=== PATIENT | female | born 1950 | race Caucasian/White ===

== ENCOUNTER 2021-03-08 13:54 | Outpatient (CLI) | payer MEDICARE, OTHER, SELFPAY ==
--- NOTE | ~2021-03-08 | XR_ITS ---
XR hip RT min 2V 03/08/2021 14:51 Indication: Right hip pain Procedure: 3 views right hip Comparison: No prior studies for comparison. Findings: There is mild osteoarthritis of the right hip. No fracture, subluxation or dislocation. No foreign bodies. Surrounding osseous structures are unremarkable. Impression: 1: Mild osteoarthritis of the right hip. Reviewed, dictated and finalized at location A. Impression: 1: Mild osteoarthritis of the right hip.
== END 2021-03-08 13:55 | disposition home or self-care (01) ==
LOC: ANHIMG 14:00
DX: M17.11 Unilateral primary osteoarthritis, right knee (principal)
CPT/HCPCS: 73502

== ENCOUNTER 2021-08-14 16:30 | Observation (INO) | payer MEDICARE, OTHER, SELFPAY ==
[2021-08-14] VITALS (8 sets, daily range): BP systolic 127–165; BP diastolic 71–98; PULSE 66–87; RESP 14–20; TEMP 35.7–36.2; O2SAT 94–99; BMI 29.5
--- NOTE | ~2021-08-14 | NM_ITS ---
EXAMINATION: NM shilpa stress w perfusion DATE: 08/15/2021 12:34 INDICATION: Chest pain. TECHNIQUE: Rest images were obtained following intravenous administration of 10.9 mCi Tc99m tetrofosm in (Myoview). The patient was infused intravenously with Lexiscan (regadenoson). Then, 31.8 mCi Tc99m tetrofosmin (Myoview) was administered intravenously, and stress images were obtained. Data was karishma nstructed into short axis and horizontal and vertical long axis SPECT images. Gated SPECT images were also obtained. COMPARISON: None. FINDINGS: Increased activity below the diaphragm decreases sensitivity and specificity in the inferio r wall. There is a moderate-sized, mild, fixed perfusion defect involving mid to basal inferior and i nferolateral segments of left ventricle, consistent with infarct. No reversible component to suggest ischemia.. There is no segmental wall motion abnormality. Left ventricular ejection fraction measur es >70%. IMPRESSION: 1. Moderate-sized area of mild infarct involving mid to basal inferior and inferolateral segments of left ventricle. 2. Normal left ventricular ejection fraction measuring >70%. Reviewed, dictated and finalized at location B. OR CREDIT OFFICER IMPRESSION: 1. Moderate-sized area of mild infarct involving mid to basal inferior and infe rolateral segments of left ventricle. 2. Normal left ventricular ejection fraction measuring >70%.
--- NOTE | ~2021-08-14 | XR_ITS ---
EXAMINATION: XR chest 2V DATE: 08/14/2021 17:19 INDICATION: Sternal chest pain, nausea and fatigue. Hyperglycemia. TECHNIQUE: PA and lateral views of the chest were obtained. COMPARISON: None FINDINGS: The lungs are clear with no focal airspace opacities, pulmonary edema, pleural effusion or pneumothor ax. The cardiomediastinal silhouette is normal. Calcified right paratracheal lymph node consistent wi th old granulomatous disease. Cholecystectomy clips in right upper quadrant. IVC filter projecting al amilcar the right side of L1-L2. Bones are unremarkable. IMPRESSION: 1. No acute cardiopulmonary disease. Reviewed, dictated and finalized at location A. E AND WELD INSPECTOR
--- NOTE | 2021-08-14 16:52 | ECG_ITS ---
Measurements Intervals [place] Rate: 83 P: 28 NC: 149 QRS: 3 QRSD: 91 T: 86 QT: 333 QTc: 392 Interpretive Statements SINUS RHYTHM BORDERLINE R WAVE PROGRESSION, ANTERIOR LEADS BORDERLINE ST-T WAVE ABNORMALITY- HIGH LATERAL LEADS BASELINE ARTIFACT- I, II, III, AVR, AVL, AVF, V3 BORDERLINE ECG Electronically Signed On 08-14-2021 19:30:05 ELECTRICAL WORKER by Stefano Olson D.O.
[2021-08-14 17:08] LABS: Basophils Absolute Auto 0.1 K/mm3 (0.0-0.1); Basophils Percent Auto 0.8 % (0.2-1.2); Eosinophils Absolute Auto 0.1 K/mm3 (0-0.3); Eosinophils Percent Auto 1.9 % (0-4.4); Hemoglobin 14.8 g/dL (12.0-15.0); Immature Granulocyte Absolute 0.01 K/mm3 (0.00-0.031); Immature Granulocyte Percent A 0.2 % (0-0.5); Lymphocytes Absolute Auto 1.49 K/mm3 (0.9-3.2); Lymphocytes Percent Auto 23.2 % (18.3-44.2); Mean Corpuscular HGB Conc 34.4 g/dl (32-36); Mean Corpuscular Volume 90.1 fl (80-100); Mean Platelet Volume 10.5 fl (7.4-10.4); Monocytes Absolute Auto 0.5 K/mm3 (0.1-0.6); Monocytes Percent Auto 7.3 % (2.6-8.5); Neutrophils Absolute Auto 4.3 K/mm3 (1.3-6.7); Neutrophils Percent Auto 66.6 % (45.5-73.1); Platelet Count Result 302 k/mm3 (150-375); Red Blood Count 4.77 M/mm3 (4.2-5.4); White Blood Count 6.4 K/mm3 (4.5-10.0)
[2021-08-14 17:12] LABS: Add Urine Microscopic? YES; Appearance Urine Cloudy (Clear); Bacteria Urine Trace /hpf; Bilirubin Urine Negative (Negative); Blood Urine Negative (Negative); Color Urine Amber (Yellow); Glucose Urine UA Negative (Negative); Hyaline Casts Urine 20-29 /lpf; Ketones Urine Negative (Negative); Leukocyte Esterase Ur 1+ LEU/UL (Negative); Mucus Urine Few /lpf; Nitrate Urine Negative (Negative); Protein Urine 2+ mg/dL (Negative); Specific Grav Ur 1.019 (1.001-1.035); Squamous Epithelial Cell Urine Many /hpf (Few); Urobilinogen Urine Negative mg/dL (<2.0)
[2021-08-14 17:21] LABS: INR 0.9; Prothrombin Time 12.3 Seconds (11.1-14.7)
[2021-08-14 17:22] LABS: Partial Thromboplastin Time 33.2 SECONDS (22.3-36.8)
[2021-08-14 17:23] LABS: Alanine Aminotransferase 16 U/L (4-35); Albumin Level 4.9 g/dL (3.5-5.1); Alkaline Phosphatase 80 U/L (38-126); Anion Gap 9 mmol/L (8-16); Aspartate Amino Transferase 32 U/L (14-36); Bilirubin,Total 0.6 mg/dL (0.2-1.3); Blood Urea Nitrogen 13 mg/dL (7-17); Calcium 10.3 mg/dL (8.4-10.2); Carbon Dioxide 28 mmol/L (22-30); Chloride 95 mmol/L (98-107); Estimated CRCL calculation 63 ml/min; Estimated Glomerular Filt Rate > 60; Glucose 109 mg/dL (65-110); Lipase 32 U/L (23-300); Potassium 4.2 mmol/L (3.4-5.0); Sodium 132 mmol/L (137-145)
[2021-08-14 17:35] LABS: Troponin I < 0.012 ng/mL (0.000-0.034)
--- NOTE | 2021-08-14 20:06 | ED.GENADULT ---
HPI - General Adult General Chief complaint: Unspecified Stated complaint: Multiple Complaints Time Seen by Provider: 08/14/21 19:40 Source: patient and RN notes reviewed History of Present Illness HPI narrative: Patient is a 70 y/o female complaining of midsternal chest pain starting before noon today. She describes her pain as aching and rates it as 4/10. There is no pain radiation, no known alleviating or exacerbating factor. She also has been having some nausea for several days. She attributed this nausea to antibiotic she received recently from a dentist for dental infection. She states that she had [place] and stents in 2012. Related Data Home Medications Medication Instructions Recorded Confirmed Humalog Pen SUBCUT 08/14/21 Lantus Solostar U-100 Insulin SUBCUT 08/14/21 atorvastatin 40 mg PO HS 08/14/21 08/14/21 carvedilol 12.5 mg PO BID 08/14/21 08/14/21 escitalopram oxalate 20 mg PO DAILY 08/14/21 08/14/21 hydrocodone-acetaminophen 1 tablet PO TID PRN 08/14/21 08/14/21 levothyroxine [Synthroid] 150 mcg PO DAILY 08/14/21 08/14/21 morphine 15 mg PO BID 08/14/21 08/14/21 pregabalin 200 mg PO HS 08/14/21 08/14/21 rivaroxaban [Xarelto] 20 mg PO QPM 08/14/21 08/14/21 Allergies Allergy/AdvReac Type Severity Reaction Status Date / Time codeine Allergy Hallucinati Verified 08/14/21 18:48 ng Sulfa (Sulfonamide Allergy Unknown Verified 08/14/21 18:48 Antibiotics) Review of Systems Constitutional: Constitutional: Denies chills, Denies fever(s), Denies headache(s) and Denies weakness Eyes: Eyes: Denies blurry vision ENT: Denies headache(s) and Denies neck pain Cardiovascular: Cardiovascular: Reports chest pain and Denies dyspnea Respiratory: Respiratory: Denies cough and Denies dyspnea Gastrointestinal: Gastrointestinal: Denies abdominal pain, Denies diarrhea, Reports nausea and Denies vomiting Genitourinary: Genitourinary: Denies hematuria and Denies dysuria Musculoskeletal: Musculoskeletal: Denies back pain and Denies neck pain Neurologic: Denies headache(s) and Denies weakness Exam Const: General: no acute distress and well developed Orientation/consciousness: oriented to person, oriented to place, oriented to time and patient oriented x3 HENMT: Head: normocephalic Ears: external ears normal General nose exam: Normal external nose present Eyes: General: appearance normal, both eyes and all related structures Conjunctivae: conjunctivae normal Neck: Neck: normal visual inspection and full ROM Chest: Chest palpation & inspection: normal inspection of the chest and no tenderness Resp: Effort & Inspection: normal respiratory effort Auscultation: clear to auscultation bilaterally Cardio: Rate: regular rate Rhythm: regular rhythm GI: GI Palp: No abdominal tenderness and Yes Soft to palpation Skin: General skin exam: normal color and turgor normal Neuro: General: oriented to person, oriented to place, oriented to time and patient oriented x3 Cognition (Neuro): normal cognition Extrem: General: normal to inspection, full ROM and no pedal edema Psych: Appearance: grossly normal Mental Status: mental status grossly normal Affect: normal affect Course Consultations Consultation #1: Discussed with Dr. Demarco, who agrees to admit. Date: 08/14/21 Time: 20:43 Vital Signs Vital signs: Vital Signs Temperature 35.7 C L 08/14/21 16:52 Pulse Rate 87 08/14/21 16:52 Respiratory Rate 17 08/14/21 16:52 Blood Pressure 127/71 08/14/21 16:52 Pulse Oximetry 98 08/14/21 16:52 Temperature 35.7 C L 08/14/21 16:52 Pulse Rate 66 08/14/21 21:03 Respiratory Rate 14 08/14/21 21:03 Blood Pressure 162/78 H 08/14/21 21:03 Pulse Oximetry 94 08/14/21 21:03 Medical Decision Making Vital Signs Vital Signs: Vital Signs Temperature 35.7 C L 08/14/21 16:52 Pulse Rate 87 08/14/21 16:52 Respiratory Rate 17 08/14/21 16:52 Blood Pressure 127/71 08/14/21 16:52 Pulse O
[2021-08-14 20:09] LABS: Troponin I < 0.012 ng/mL (0.000-0.034)
--- NOTE | 2021-08-14 20:47 | PM.IMHP ---
H&P: HPI History of Present Illness Date/Time: 08/14/21 20:47 Chief Complaint: Chest pain Narrative: This is a 70-year-old female with past medical history significant for dyslipidemia, type 2 diabetes mellitus, chronic pain, hypothyroidism, peripheral diabetic neuropathy, coronary artery disease. Patient presented to the emergency room due to chest pain localized to the retrosternal area this started after the patient has been having nausea and vomiting after she was taking antibiotic for a dental procedure have has left her with a metallic taste in her mouth and stomach upset. Denies any fevers, rigors, chills, no palpitations, no shortness of breath, no cough, no sputum production, no abdominal pain, no diarrhea, no leg swelling, no PND, no orthopnea. Review of Systems Review of Systems: Stomach upset, nausea, vomiting, metallic taste in the mouth. Constitutional: Constitutional: Denies chills, Denies fever(s), Denies malaise, Denies night sweats and Reports poor appetite Eyes: Eyes: Denies change in vision ENT: Denies dysphagia, Denies vertigo, Denies dizziness, Denies nasal congestion, Denies nasal discharge, Denies nasal obstruction and Denies odynophagia Cardiovascular: Cardiovascular: Denies chest pain with activity, Denies irregular heart rhythm, Denies leg edema, Denies lightheadedness, Denies radiating jaw, neck or arm pain, Denies palpitations, Denies dyspnea, Denies dyspnea on exertion and Denies orthopnea Respiratory: Respiratory: Denies change in phlegm color, Denies cough, Denies excessive phlegm production and Denies dyspnea Gastrointestinal: Gastrointestinal: Denies abdominal pain, Denies dyspepsia, Denies heartburn, Reports nausea and Reports vomiting Genitourinary: Genitourinary: Denies dysuria Musculoskeletal: Musculoskeletal: Denies back pain and Denies myalgias Integumentary/Breasts: Skin/Breast: Denies rash Neurologic: Denies vertigo, Denies dizziness, Denies focal weakness, Denies Sensory deficit (Neuro) and Denies weakness Psychiatric: Psychiatric: Reports no additional psychiatric complaints and Reports as per HPI Endocrine: Endocrine: Reports no additional endocrine complaints and Reports as per HPI Hematologic/Lymphatic: Hematologic/Lymphatic: Reports no additional hematologic/lymphatic complaints and Reports as per HPI Allergic/Immunologic: Allergic/Immunologic: Reports no additional allergic/immunologic complaints and Reports as per HPI [facility] Family History Family History (Updated 08/14/21 @ 23:11 by Alma Pablo RN) Father Diabetes mellitus Mother Glomerular disease Hypertension Sibling Parkinson disease Heart valve replaced Social History Social History Smoking packs per day: 1 Smoking cigarettes per day: 20.0 Years smoked: 25 Smoking pack-years: 25.00 Smoking status: Former smoker Tobacco type: cigarettes Alcohol intake: never Substance use: never Spiritual care concerns: No Meds Home Medications and Allergies Home Medications Medication Instructions Recorded Confirmed Type Humalog Pen See Rx Instructions .ROUTE .COMPLEX 08/14/21 08/14/21 History Lantus Solostar U-100 Insulin 40 units SUBCUT DAILY 08/14/21 08/14/21 History atorvastatin 40 mg PO HS 08/14/21 08/14/21 History carvedilol 12.5 mg PO Q12H 08/14/21 08/14/21 History escitalopram oxalate 20 mg PO DAILY 08/14/21 08/14/21 History hydrocodone-acetaminophen 1 tablet PO Q6H PRN 08/14/21 08/14/21 History levothyroxine [Synthroid] 150 mcg PO DAILY 08/14/21 08/14/21 History morphine 15 mg PO Q12H 08/14/21 08/14/21 History pregabalin 200 mg PO HS 08/14/21 08/14/21 History rivaroxaban [Xarelto] 20 mg PO QPM 08/14/21 08/14/21 History Allergies Allergy/AdvReac Type Severity Reaction Status Date / Time codeine Allergy Hallucinati Verified 08/14/21 18:48 ng Sulfa (Sulfonamide Allergy Unknown Verified 08/14/21 18:48 Antibiotics)
--- NOTE | 2021-08-14 23:00 | ADMGEN ---
This patient, Olga Morales, was admitted to IMU Room 209-01 @ 2235. Patient oriented to hospital policies and general routines including ID bracelet, bed and alarms, visiting hours, pain management, procedures, bathroom and other care routines, personal items, smoking policy, room service/diet, and visiting hours. Information on how to activate the Rapid Response Team has been discussed. Patient are encouraged to report perceived risks to care and to ask questions if they do not understand what they are told or what they should do.
[2021-08-14 23:28] LABS: Glucose Point of Care 120 mg/dl (65-105)
[2021-08-14] MEDS: MORPHINE SULFATE (*CRX) 15 MG TABCR PO (23:42)
[2021-08-14] MEDS: PREGABALIN (*CRX) 50 MG CAPSULE 200 MG PO (23:42)
[2021-08-14] MEDS: carvediloL 12.5 MG TABLET PO (23:44)
[2021-08-14] MEDS: ATORVASTATIN 40 MG TABLET PO (23:45)
[2021-08-14] MEDS: RIVAROXABAN 20 MG TABLET PO (23:46)
[2021-08-15] VITALS (10 sets, daily range): BP systolic 109–139; BP diastolic 57–73; PULSE 62–73; RESP 12–20; TEMP 36.3–36.9; O2SAT 95–97
--- NOTE | 2021-08-15 00:01 | EST_ITS ---
Patient Info Name: Olga Morales Age: 70 years : 1950 Gender: Female Ht: 69 in Wt: 200 lbs BSA: 2.12 m2 HR: 66 bpm BP: 135 / 75 mmHg Heart Rhythm: Sinus Rhythm Exam Date: 08/15/2021 11:21 AM Exam Location: [facility] Stress Patient Status: Outpatient Admit Date: 08/14/2021 Staff Ordering Physician: Lamberto Demarco MD Attending Provider: Lamberto Demarco MD Exercise Technologist: Colleen Yun CT Exercise Physician: Jason Mora MD Exam Type: CA stress shilpa w NM Study Info Indications R07.9 - Chest pain, unspecified A regadenoson stress test was performed. Summary 1. No abnormal ST/T wave changes with Lexiscan administration. 2. No arrhythmias were observed during the examination. 3. No chest discomfort with stress test. 4. Please correlate with nuclear medicine images, reported separately. Protocol: Lexiscan Stress ECG Details Stage: REST Duration (min): 0 min : 53 sec HR (bpm): 67 SBP (mmHg): 135 DBP (mmHg): 75 Stage: REST Duration (min): 6 min : 52 sec HR (bpm): 58 SBP (mmHg): 135 DBP (mmHg): 75 Stage: STAGE 1 Duration (min): 1 min : 0 sec HR (bpm): 73 SBP (mmHg): 149 DBP (mmHg): 77 Stage: RECOVERY Duration (min): 1 min : 0 sec HR (bpm): 82 SBP (mmHg): 149 DBP (mmHg): 77 Stage: RECOVERY Duration (min): 2 min : 0 sec HR (bpm): 39 SBP (mmHg): 149 DBP (mmHg): 77 Stage: RECOVERY Duration (min): 3 min : 0 sec HR (bpm): 78 SBP (mmHg): 151 DBP (mmHg): 76 Stage: RECOVERY Duration (min): 3 min : 37 sec HR (bpm): 78 SBP (mmHg): 151 DBP (mmHg): 76 Rest HR: 58 bpm Peak HR: 84 bpm Rest Sys BP: 135 mmHg Peak Sys BP: 151 mmHg Max Pred HR: 152 bpm % Max Pred HR: 55 % Target HR: 129 bpm Max RPP: 12,684 bpm*mmHg Termination Reason: Completed protocol Cardiac Symptoms: None Total Time: 1 min : 0 sec Rest Castañeda BP: 75 mmHg Peak Castañeda BP: 76 mmHg Total Dose: 0.4 mg Resting ECG Normal sinus rhythm. NSIVCD. Stress ECG No abnormal ST/T wave changes with Lexiscan administration. Arrhythmias No arrhythmias were observed during the examination. Report Signatures
[2021-08-15 00:09] LABS: Troponin I < 0.012 ng/mL (0.000-0.034)
[2021-08-15] MEDS: BELLADONNA ALK/PHENOB ELIX 10 ML, MAG HYDROX/ALUMINUM HYD/SIMETH 30 ML, LIDOCAINE HCL 2... PO (01:13)
[2021-08-15] MEDS: LEVOTHYROXINE SODIUM 150 MCG TABLET PO (06:38)
[2021-08-15 08:09] LABS: Glucose Point of Care 248 mg/dl (65-105)
--- NOTE | 2021-08-15 08:23 | PM.IMPN ---
Subjective Date/time seen: 08/15/21 08:23 Objective Data Vital Signs Vital Signs: Vital Signs - 24 hr 08/14/21 16:52 08/14/21 19:00 08/14/21 21:03 Temperature 96.2 F L Pulse Rate 87 67 66 Respiratory Rate 17 16 14 Blood Pressure 127/71 163/98 H 162/78 H Pulse Oximetry 98 99 94 08/14/21 21:58 08/14/21 22:19 08/14/21 23:07 Temperature 97.2 F L Pulse Rate 68 69 74 Respiratory Rate 18 18 20 Blood Pressure 157/81 H 165/83 H 163/84 H Pulse Oximetry 97 96 08/14/21 23:30 08/14/21 23:44 08/15/21 02:00 Temperature Pulse Rate 69 72 68 Respiratory Rate Blood Pressure Pulse Oximetry 08/15/21 04:00 08/15/21 06:00 08/15/21 08:00 Temperature 97.6 F 98.4 F Pulse Rate 66 66 69 Respiratory Rate 20 12 Blood Pressure 132/57 L 133/59 L Pulse Oximetry 95 96 Intake/Output Intake/Output: Intake & Output 08/12/21 08/13/21 08/14/21 08/15/21 23:59 23:59 23:59 23:59 Output Total 500 Balance -500 Meds/Results Medications: Active Medications Generic Name Dose Route Start Last Admin Trade Name Freq PRN Reason Stop Dose Admin Hydrocodone Bitart/Acetaminophen 1 tab 08/14/21 23:12 Hydrocodone/Acetaminophen (*Crx) 10-325 Mg Tablet PO Q6H PRN Pain Rated 7-10 Atorvastatin Calcium 40 mg 08/14/21 23:20 08/14/21 23:45 Atorvastatin 40 Mg Tablet PO 40 mg HS LORENZO Administration Carvedilol 12.5 mg 08/14/21 23:20 08/14/21 23:44 Carvedilol 12.5 Mg Tablet PO 12.5 mg Q12HR LORENZO Administration Dextrose 12.5 gm 08/15/21 02:38 Dextrose 50% 25 Gm/50 Ml Syringe IV PUSH PRN PRN Hypoglycemia Protocol Escitalopram Oxalate 20 mg 08/15/21 09:00 Escitalopram Oxalate 10 Mg Tablet PO DAILY LORENZO Glucagon 1 mg 08/15/21 02:38 Glucagon For Inj 1 Mg Vial IM PRN PRN Hypoglycemia Protocol Glucose 15 gm 08/15/21 02:38 Glucose Oral Gel 15 Gm Of Glucse In 37.5 Gm Tube PO PRN PRN Hypoglycemia Protocol Dextrose 1,000 mls @ 100 mls/hr 08/15/21 02:38 Dextrose 5% 1,000 Ml IVPB PRN PRN Hypoglycemia Protocol Insulin Aspart 2 - 5 units 08/15/21 08:00 Insulin Aspart (*Bkc) 100 Units/Ml SUB-Q TIDWM LORENZO Protocol Insulin Glargine 40 units 08/15/21 09:00 Insulin Glargine (*Bkc) 100 Units/Ml SUB-Q QAM LORENZO Levothyroxine Sodium 150 mcg 08/15/21 06:30 08/15/21 06:38 Levothyroxine Sodium 150 Mcg Tablet PO 150 mcg DAILY@0630 LORENZO Administration Morphine Sulfate 15 mg 08/15/21 09:00 Morphine Sulfate (*Crx) 15 Mg Tabcr PO Q12H LORENZO Pregabalin 200 mg 08/15/21 21:00 Pregabalin (*Crx) 50 Mg Capsule PO HS LORENZO Rivaroxaban 20 mg 08/14/21 23:20 08/14/21 23:46 Rivaroxaban 20 Mg Tablet PO 20 mg QPM LORENZO Administration Sucralfate 1,000 mg 08/15/21 06:30 08/15/21 06:37 Sucralfate Susp 100 Mg/Ml 10 Ml Udc PO Not Given ACHS [facility] Radiology Results: ITS Impressions Chest X-Ray 08/14/21 17:23 IMPRESSION: 1. No acute cardiopulmonary disease. Labs Labs: Laboratory Results - last 24 hr 08/14/21 08/14/21 08/14/21 16:56 16:56 16:56 WBC 6.4 RBC 4.77 Hgb 14.8 Hct 43.0 MCV 90.1 MCH 31.0 MCHC 34.4 RDW 13.0 Plt Count 302 MPV 10.5 H Immature Gran % (Auto) 0.2 Neut % (Auto) 66.6 Lymph % (Auto) 23.2 Terrell % (Auto) 7.3 Eos % (Auto) 1.9 Baso % (Auto) 0.8 Lymph # (Auto) 1.49 [place]rell # (Auto) 0.5 Eos # (Auto) 0.1 Baso # (Auto) 0.1 Abs Immat Gran (auto) 0.01 Absolute Neuts (auto) 4.3 Absolute Nucleated RBC 0.0 Nucleated RBC % 0.0 PT 12.3 INR 0.9 APTT 33.2 Sodium Potassium Chloride Carbon Dioxide Anion Gap BUN Creatinine Estim Creat Clear Calc Estimated GFR Glucose POC Capillary Glucose Calcium Total Bilirubin AST ALT Alkaline Phosphatase Troponin I Total Protein Albumin
[2021-08-15] MEDS: carvediloL 12.5 MG TABLET PO (09:09)
[2021-08-15] MEDS: ESCITALOPRAM OXALATE 10 MG TABLET 20 MG PO (09:09)
[2021-08-15] MEDS: MORPHINE SULFATE (*CRX) 15 MG TABCR PO (09:09)
[2021-08-15] MEDS: INSULIN GLARGINE (*BKC) 100 UNITS/ML 40 UNITS SUB-Q (09:12)
--- NOTE | 2021-08-15 09:52 | PC.NURSE ---
Patient downstairs for a cardiac stress test at 0952.
--- NOTE | 2021-08-15 12:16 | PC.NURSE ---
Patient back to floor from stress test at 1216.
[2021-08-15] MEDS: HYDROcodone/acetaminophen (*CRX) 10-325 MG TABLET 1 TAB PO (12:54)
[2021-08-15] MEDS: SUCRALFATE SUSP 100 MG/ML 10 ML UDC 1000 MG PO ×2 (12:54→17:42)
[2021-08-15 13:05] LABS: Glucose Point of Care 266 mg/dl (65-105)
[2021-08-15 15:58] LABS: Glucose Point of Care 197 mg/dl (65-105)
--- NOTE | 2021-08-15 17:03 | PM.DS ---
DS: Admitting Diagnosis Discharge Date 08/15/2021 Admitting Diagnosis Chest Pain DS: Discharge Diagnosis Discharge Diagnosis (1) Chest pain: Qualifiers: Chest pain type: unspecified Qualified Code(s): R07.9 - Chest pain, unspecified Code(s): R07.9 - Chest pain, unspecified Status: Acute Assessment and Plan: Troponin negative. EKG w/ no ST-T changes. Leiscan performed notes no inducible ischemia and area of moderate-sized, mild, fixed perfusion defect involving mid to basal inferior and inferolateral segments of left ventricle, consistent with infarct. Given hx of [place] 2013 s/p stent placement this is likely the area of the old infarct. The patient is no longer having chest pain and none of her studies were abnormal. Patient already has an appointment with Kd Miller MD, her senior human resources representative in August. Patient agreed to follow up with Dr. Miller within the next few weeks or sooner should her symptoms return. She is already medically optimized on atorvastatin 40 mg po daily and carvedilol 12mg BID. ASA was discontinued by her senior human resources representative due to bruising. -Discharge to home -Follow up with Cardiology within the next few weeks -Continue statin and BB (2) Nausea and vomiting: Code(s): R11.2 - Nausea with vomiting, unspecified Status: Acute Assessment and Plan: Patient prescribed metronidazole and amoxicillin for an odontogenic infection. Patient was unable to tolerate the metallic taste of the metronidazole and had some nausea and vomiting. This has subsided and the patient has stopped the medication. (3) Coronary artery disease: Code(s): I25.10 - Atherosclerotic heart disease of [place] coronary artery without angina pectoris Status: Acute Assessment and Plan: S/p [place] w/ stent placement 2012 currently on carvedilol 12.5 mg BID and atorvastatin 40 mg po daily. Continue home medications. (4) Hypertension: Code(s): I10 - Essential (primary) hypertension Status: Acute Assessment and Plan: Well controlled on carvedilol 12.5 mg po daily. Continue carvedilol. (5) Type 2 diabetes mellitus: Code(s): E11.9 - Type 2 diabetes mellitus without complications Status: Acute Assessment and Plan: Hyperglycemic during stay. Takes glargine 40 units qAM and humalog with meals. Continue home insulin. Needs to follow up with PCP. (6) Chronic pain: Code(s): G89.29 - Other chronic pain Status: Acute Assessment and Plan: Pregabalin 200 mg po qhs. 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 She was on lifetime warfarin until when she had her [place] in 2012 her senior human resources representative started rivaroxaban. Continue rivaroxaban. DS: Summary Hospital Course Hospital Course: Patient presented to the emergency department with chest pain, nausea and vomiting. The nausea and vomiting started before the chest pain after taking metronidazole started by her dentist for an infection. In the ED, troponin was normal and EKG showed no acute changes. Given her history of [place] in 2012 with a stent placement, patient was taken for a chemical stress test. The stress test noted no inducible ischemia and an area of infarction. Patient was given high dose ASA in the ED and already medically optimized on carvedilol and atorvastatin at home. With the lexiscan results, given the history of TX and resolution of symptoms, the patient was discharged to home with follow up with her Clinical Laboratory Service Teacher, Dr. Kd Miller. Time Spent with Patient Time attestation: Total time spent providing and/or coordinating discharge services: Exam Narrative: GENERAL: NAD, cooperative HEENT: Normocephalic, atraumatic, anicteric, nares clear, o
[2021-08-15] MEDS: RIVAROXABAN 20 MG TABLET PO (17:42)
[2021-08-15] MEDS: INSULIN ASPART (*BKC) 100 UNITS/ML SUB-Q (17:49)
[2021-08-15 18:06] LABS: Glucose Point of Care 313 mg/dl (65-105)
== END 2021-08-15 18:58 | disposition home or self-care (01) ==
LOC: ANHED 21:11 → ANHIMU 08-15 01:38
PROVIDERS: Admitting Provider Internal Medicine; Emergency Provider Emergency Medicine; Visit Provider Family Medicine
DX: R07.9 Chest pain, unspecified (principal); I25.10 Atherosclerotic heart disease of native coronary artery without angina pectoris; E78.5 Hyperlipidemia, unspecified; E03.9 Hypothyroidism, unspecified; E11.42 Type 2 diabetes mellitus with diabetic polyneuropathy; G89.29 Other chronic pain; I25.2 Old myocardial infarction; I10 Essential (primary) hypertension; Z79.4 Long term (current) use of insulin; Z87.891 Personal history of nicotine dependence; Z86.718 Personal history of other venous thrombosis and embolism; Z79.01 Long term (current) use of anticoagulants; Z79.899 Other long term (current) drug therapy
CPT/HCPCS: 36415; 71046; 78452; 80053; 81001; 82948; 83690; 84484; 85025; 85610; 85730; 87077; 87086; 87088; 87186; 93005; 93017; 99285; A9270; A9502; G0378; J1815; J2785

== ENCOUNTER 2024-03-05 12:00 | Emergency (ER) | payer MEDICARE, OTHER, SELFPAY ==
--- NOTE | ~2024-03-05 | CT_ITS ---
CT of the Abdomen and Pelvis: Indication: Hematuria Technique: 2.5 mm axial scans were obtained through the abdomen and pelvis prior to and following in travenous administration of 100 cc of Omnipaque 350. Dose reduction technique was used on this scan b y utilizing automated exposure control and iterative reconstruction technique. The dose-length produc t (DLP) was 1947.84 mGy-cm. Findings: Scans through the lung bases are unremarkable. Calcified hepatic and splenic granulomas are present. Cholecystectomy clips are present. The pancreas , adrenals and kidneys are within normal limits. There are atherosclerotic calcifications of the aort a. IVC filter present. No lymphadenopathy. No bowel obstruction or bowel wall thickening. There is no evidence to suggest acute appendicitis. Images through the pelvis were performed. Questionable wall thickening versus debris or possibly bloo d products in the posterior left urinary bladder. Patient is status post hysterectomy. No ascites. Impression: Possible wall thickening versus debris or blood products layering in the posterior left urinary bladd er. Evaluation somewhat suboptimal as there is no contrast within the urinary bladder on postcontrast images. Consider cystoscopy for further evaluation. No upper system abnormality identified. Reviewed, dictated and finalized at location . Impression: Possible wall thickening versus debris or blood products layering in the heater installer ior left urinary bladder. Evaluation somewhat suboptimal as there is no contras t within the urinary bladder on postcontrast images. Consider cystoscopy for fu rther evaluation. No upper system abnormality identified.
[2024-03-05 12:11] VITALS: BP 136/65; PULSE 74; RESP 20; TEMP 36.6; O2SAT 93
--- NOTE | 2024-03-05 12:18 | ED.FEMALEGU ---
HPI - Female Genitourinary General Chief complaint: Urogenital-Female Stated complaint: blood in urine Time Seen by Provider: 03/05/24 12:17 History of Present Illness HPI Narrative: Patient is a 73-year-old female with history of DVT on Xarelto, CAD status post PCI x1, type 1 diabetes here with gross hematuria. She states that she went to bed feeling like her normal self. Around 230 this morning she woke up to hematuria. She initially was concerned that it could be coming from her rectum as she has a history of hemorrhoids in the past. She has noted subsequent urination that appears to be the color of red wine passing clots upwards of a dime-sized. She denies any associated abdominal pain or flank pain. She does have a history of stress incontinence and has followed in the past with a urologist in [place], has not seen any urologist locally. She had a hysterectomy in 1986 and has not had any menstrual cycle since that time. She denies any fever chills. Denies any trauma. Related Data Home Medications Medication Instructions Recorded Confirmed Humalog Pen See Rx Instructions .Route .COMPLEX 08/14/21 08/14/21 Lantus Solostar U-100 Insulin 40 units subcut DAILY 08/14/21 08/14/21 atorvastatin 40 mg tablet 40 mg PO HS 08/14/21 08/14/21 carvedilol 12.5 mg tablet 12.5 mg PO Q12H 08/14/21 08/14/21 escitalopram oxalate 20 mg tablet 20 mg PO DAILY 08/14/21 08/14/21 hydrocodone 10 mg-acetaminophen 1 tablet PO Q6H PRN Pain 08/14/21 08/14/21 325 mg tablet levothyroxine 150 mcg tablet 150 mcg PO DAILY 08/14/21 08/14/21 (Synthroid) morphine 15 mg tablet,extended 15 mg PO Q12H 08/14/21 08/14/21 release pregabalin 200 mg capsule 200 mg PO HS 08/14/21 08/14/21 rivaroxaban 20 mg tablet (Xarelto) 20 mg PO QPM 08/14/21 08/14/21 Allergies Allergy/AdvReac Type Severity Reaction Status Date / Time codeine Allergy Hallucinati Verified 03/05/24 12:03 ng Sulfa (Sulfonamide Allergy Unknown Verified 03/05/24 12:03 Antibiotics) Review of Systems Review of Systems: All systems reviewed & are unremarkable except as noted in HPI and below PMFSH Past Medical History Medical History (Updated 03/05/24 @ 16:05 by Gabby Winchester MD) DVT (deep venous thrombosis) Family History Family History (Updated 08/14/21 @ 23:11 by Alma Pablo RN) Father Diabetes mellitus Mother Glomerular disease Hypertension Sibling Parkinson disease Heart valve replaced Social History Social History Smoking packs per day: 1 Smoking cigarettes per day: 20.0 Years smoked: 25 Smoking pack-years: 25.00 Smoking status: Former smoker Tobacco type: cigarettes Alcohol intake: never Substance use: never Spiritual care concerns: No Exam Narrative: GENERAL: Well-appearing, well-nourished, and in no acute distress. HEAD: Normocephalic, atraumatic. EYES: PERRLA and EOMI. ENT: Nares clear. Mucous membranes moist. NECK: Supple. CHEST: Clear to auscultation. No respiratory distress. HEART: Regular rate and rhythm. Normal peripheral pulses. ABDOMEN: Soft, nontender, nondistended. EXTREMITIES: Normal range of motion. No edema. SKIN: Warm, dry, no rash. NEURO: No focal deficits. Alert and oriented x3. PSYCH: Normal mood and affect. Course Course Emergency Course: Chart review performed. Patient here with dark blood and clots in urine since 0230 this morning. Triage vitals normal. Patient seen evaluated, nontoxic appearing, alert, oriented. She is here with gross hematuria, differentials include hemorrhagic cystitis versus nephrolithiasis versus some sort of bleeding urologic mass. Patient hemodynamically stable. Basic lab work, UA, CT abdomen pelvis have been ordered to evaluate for possible source of bleeding. She denies any urinary retention at this time. Patient agreeable to workup and plan. Lab work and imaging reviewed, CBC unremarkable with hemoglobin
[2024-03-05 12:57] LABS: Color Urine Red (Yellow)
[2024-03-05 12:58] LABS: Appearance Urine Turbid (Clear); Blood Urine 2+ (Negative); Glucose Urine UA Trace (Negative); Ketones Urine Negative (Negative); Nitrate Urine Negative (Negative); Protein Urine 3+ (Negative); Specific Grav Ur > 1.030 (1.010-1.020); pH Urine 6.5 (5.0-8.0)
[2024-03-05 12:59] LABS: Add Urine Microscopic? YES; Leukocyte Esterase Ur Negative LEU/UL (Negative)
[2024-03-05 13:08] LABS: RBC Urine >100 /hpf (0-2)
[2024-03-05 13:09] LABS: WBC Urine Unable to determine /hpf (0-3)
[2024-03-05 13:55] LABS: Basophils Percent Auto 0.7 % (0.2-1.2); Eosinophils Absolute Auto 0.2 K/mm3 (0-0.3); Hematocrit 38.8 % (37.0-47.0); Hemoglobin 13.1 g/dL (12.0-15.0); Immature Granulocyte Absolute 0.01 K/mm3 (0.00-0.031); Immature Granulocyte Percent A 0.2 % (0-0.5); Lymphocytes Percent Auto 20.5 % (18.3-44.2); Mean Corpuscular HGB Conc 33.8 g/dl (32-36); Mean Corpuscular Hemoglobin 30.7 pg (26-34); Mean Corpuscular Volume 90.9 fl (80-100); Mean Platelet Volume 10.4 fl (7.4-10.4); Monocytes Absolute Auto 0.4 K/mm3 (0.1-0.6); Monocytes Percent Auto 7.1 % (2.6-8.5); Neutrophils Absolute Auto 3.7 K/mm3 (1.3-6.7); Neutrophils Percent Auto 68.5 % (45.5-73.1); Platelet Count Result 261 k/mm3 (150-375); Red Blood Count 4.27 M/mm3 (4.2-5.4); Red Cell Distribution Width 13.4 % (11.5-14.5); White Blood Count 5.4 K/mm3 (4.5-10.0)
[2024-03-05 14:00] VITALS: BP 130/64; PULSE 72; RESP 20; O2SAT 100
[2024-03-05 14:01] LABS: Estimated CRCL calculation 67 ml/min; Estimated Glomerular Filt Rate > 60
[2024-03-05 14:19] LABS: Alanine Aminotransferase 17 U/L (6-35); Albumin Level 4.2 g/dL (3.5-5.1); Alkaline Phosphatase 90 U/L (38-126); Anion Gap 3 mmol/L (4-12); Aspartate Amino Transferase 35 U/L (14-36); Bilirubin,Total 0.6 mg/dL (0.2-1.3); Blood Urea Nitrogen 14 mg/dL (7-17); Calcium 9.2 mg/dL (8.4-10.2); Carbon Dioxide 30 mmol/L (22-30); Chloride 99 mmol/L (98-107); Estimated CRCL calculation 76 ml/min; Estimated Glomerular Filt Rate > 60; Glucose 230 mg/dL (65-110); Potassium 4.8 mmol/L (3.4-5.0); Sodium 132 mmol/L (137-145)
[2024-03-05 16:30] VITALS: BP 130/64; PULSE 72; RESP 20; O2SAT 100
== END 2024-03-05 16:30 | disposition home or self-care (01) ==
PROVIDERS: Emergency Provider Student in an Organized Health Care Education/Training Program
DX: R31.0 Gross hematuria (principal); I25.10 Atherosclerotic heart disease of native coronary artery without angina pectoris; Z98.61 Coronary angioplasty status; Z86.718 Personal history of other venous thrombosis and embolism; Z87.891 Personal history of nicotine dependence; Z79.01 Long term (current) use of anticoagulants; Z79.4 Long term (current) use of insulin; Z79.899 Other long term (current) drug therapy
CPT/HCPCS: 36415; 74178; 80053; 81001; 85025; 99284; Q9967

== ENCOUNTER 2024-08-05 16:31 | Emergency (ER) | payer MEDICARE, OTHER, SELFPAY ==
[2024-08-05 16:33] VITALS: BP 149/68; PULSE 73; RESP 18; TEMP 36.1; O2SAT 100
--- NOTE | 2024-08-05 16:39 | ED.FEMALEGU ---
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 Patient had a urologic procedure done 6 days ago at [facility] with Dr. Orr (Uro-surfacer). States she had a mesh removed and ?bulking of the urethra . Patient states she has passed large clots and gross hematuria which is progressively worsened. She contacted her surgeon who advised to go to the ED. She denies abdominal pain, fever, nausea vomiting. GENERAL: Well-appearing, well-nourished, and in no acute distress. HEAD: Normocephalic, atraumatic. CHEST: Clear to auscultation. ?No respiratory distress. HEART: Regular rate and rhythm.? NEURO: ?Alert and oriented x3. Patient screened in triage and initial orders placed.? ?Additional care and disposition to be based upon?diagnostic testing and treatment. Related Data Home Medications Medication Instructions Recorded Confirmed Humalog Pen See Rx Instructions .Route .COMPLEX 08/14/21 08/14/21 Lantus Solostar U-100 Insulin 40 units subcut DAILY 08/14/21 08/14/21 atorvastatin 40 mg tablet 40 mg PO HS 08/14/21 08/14/21 carvedilol 12.5 mg tablet 12.5 mg PO Q12H 08/14/21 08/14/21 escitalopram oxalate 20 mg tablet 20 mg PO DAILY 08/14/21 08/14/21 hydrocodone 10 mg-acetaminophen 1 tablet PO Q6H PRN Pain 08/14/21 08/14/21 325 mg tablet levothyroxine 150 mcg tablet 150 mcg PO DAILY 08/14/21 08/14/21 (Synthroid) morphine 15 mg tablet,extended 15 mg PO Q12H 08/14/21 08/14/21 release pregabalin 200 mg capsule 200 mg PO HS 08/14/21 08/14/21 rivaroxaban 20 mg tablet (Xarelto) 20 mg PO QPM 08/14/21 08/14/21 Allergies Allergy/AdvReac Type Severity Reaction Status Date / Time codeine Allergy Hallucinati Verified 03/05/24 12:03 ng Sulfa (Sulfonamide Allergy Unknown Verified 03/05/24 12:03 Antibiotics) [facility] Past Medical History Medical History (Updated 08/10/24 @ 00:49 by Yolande Bee PA-C) DVT (deep venous thrombosis) Family History Family History (Updated 08/14/21 @ 23:11 by Alma Pablo RN) Father Diabetes mellitus Mother Glomerular disease Hypertension Sibling Parkinson disease Heart valve replaced Social History Social History Smoking packs per day: 1 Smoking cigarettes per day: 20.0 Years smoked: 25 Smoking pack-years: 25.00 Smoking status: Former smoker Tobacco type: cigarettes Alcohol intake: never Substance use: never Spiritual care concerns: No Course Vital Signs Vital signs: Vital Signs Temperature 97.0 F L 08/05/24 16:33 Pulse Rate 73 08/05/24 16:33 Respiratory Rate 18 08/05/24 16:33 Blood Pressure 149/68 H 08/05/24 16:33 Pulse Oximetry 100 08/05/24 16:33 Oxygen Delivery Room Air 08/05/24 16:33 Temperature 97.0 F L 08/05/24 16:33 Pulse Rate 73 08/05/24 16:33 Respiratory Rate 18 08/05/24 16:33 Blood Pressure 149/68 H 08/05/24 16:33 Pulse Oximetry 100 08/05/24 16:33 Oxygen Delivery Room Air 08/05/24 16:33 Discharge Plan Discharge Clinical Impression: Hematuria Patient Disposition: Left Against Medical Advice Condition: Stable Prescriptions: No Action atorvastatin 40 mg Tablet 40 mg PO HS carvedilol 12.5 mg Tablet 12.5 mg PO Q12H hydrocodone-acetaminophen 10-325 mg Tablet 1 tablet PO Q6H PRN (Reason: Pain) levothyroxine [Synthroid] 150 mcg Tablet 150 mcg PO DAILY morphine 15 mg Tablet Extended Release 15 mg PO Q12H escitalopram oxalate 20 mg Tablet 20 mg PO DAILY Xarelto 20 mg Tablet 20 mg PO QPM Humalog Pen See Rx Instructions .ROUTE .COMPLEX Rx Instructions: SLIDING SCALE Lantus Solostar U-100 Insulin pen injector 40 units subcut DAILY pregabalin 200 mg Capsule 200 mg PO HS cefdinir 300 mg capsule 300 mg PO Q12H 10 Days Qty: 20 0RF Follow-up/Referrals: UNKNOWN,DOCTOR [Primary Care Provider] -
--- NOTE | 2024-08-05 19:33 | PC.NURSE ---
Patient states at this time she does not want to wait any longer in the waiting room. This RN spoke with MELLISSA Pacheco and since this patient had an MSE, patient would be an AMA. Risks explained to patient and patient signed form. Patient ambulated out of ER at this time.
== END 2024-08-05 19:33 | disposition left against medical advice (07) ==
DX: R31.9 Hematuria, unspecified (principal); Z86.718 Personal history of other venous thrombosis and embolism; Z79.01 Long term (current) use of anticoagulants; Z87.891 Personal history of nicotine dependence
CPT/HCPCS: 99199

== ENCOUNTER 2025-04-06 17:38 | Emergency (ER) | payer MEDICARE, OTHER, SELFPAY ==
--- NOTE | ~2025-04-06 | XR_ITS ---
EXAMINATION: XR chest 2V Exam Date/Time: 04/06/2025 20:18 CDT HISTORY: SOB Comparison: 08/14/2021. RESULT: Lines, tubes, and devices: An electronic device projects over the chest in the lateral view. Cholecy stectomy clips. IVC filter. Lungs and pleura: Clear. Cardiomediastinal silhouette: Stable. Calcified nodes. Other: No acute osseous or upper abdominal finding. IMPRESSION: No acute cardiopulmonary process. Reviewed, dictated and finalized at location K.
--- OUTSIDE RECORDS SUMMARY | 2025-04-06 17:41 | XMS_ITS | Encounter Summary ---
Author Organization [facility] Address [address] [place] [address] Care Team Providers Care Locksmith Name Role Phone Jacquelyn Mejia MD Primary Care Provider [phone] Encounter Details Date Type Department Care Team (Late st Contact Info) Description 12/31/2021 Refill [facility] Endocrinology [address] [place] [address] Dada Pardo MD [address] [place] [address] Social History Tobacco Use Types Packs/Day Years Used Date Smoking Tobacco: Former Cigarettes 1 30 1 11/04/1968 - 09/03/1999 Smokeless Tobacco: Never Comments:Smoked 30 years, ab out 1ppd Alcohol Use Standard Drinks/Week Comments No 0 (1 standard drink = 0.6 oz pur e alcohol) Comments No Sex and Gender Information Value Date Recorded Sex Assigned at Female 04/20/2024 11:32 AM CDT Legal Sex Female 2:18 PM CDT Gender Identity Female 04/20/2024 11:32 AM CDT Sexual Orientation Not on file COVID-19 Exposure Response Date Recorded In the last month, have you been in contact with someone who was confirmed or suspected to have Coronavirus / COVID-19? No / Unsure 12/18/2021 9:53 AM CDT documented as of this encounter Plan of Treatment Upcoming Encounters Date Type Department Care Team (Late st Contact Info) Description 04/14/2025 12:00 PM CDT Office Visit [facility] Endocrinology [address] [place] [address] Dada Pardo MD [address] [place] [address] 07/25/2025 2:15 PM CHEMICAL DEPENDENCY PROFESSIONAL Office Visit [facility] Endocrinology [address] [place] [address] Dada Pardo MD [address] [place] [address] documented as of this encounter Visit Diagnoses Not on filedocumented in this encounter Additional Health Concerns Assessment Noted Time PHQ-9 Depression Total Score: 2 10/12/19 21 2:00 PM CHEMICAL DEPENDENCY PROFESSIONAL documented as of this encounter Care Teams Locksmith Relationship Specialty Start [place] [address] [place] [address] PCP - General Family Practice 12/01/24 documented as of this encounter
--- OUTSIDE RECORDS SUMMARY | 2025-04-06 17:41 | XMS_ITS | Encounter Summary ---
Author Organization [facility] Address [address] [place] [address] Care Team Providers Care Senior Principal Process Engineer Name Role Phone Jacquelyn Mejia MD Primary Care Provider Reason for Visit * Reason Onset Date Comments Medication Refill 04/01/2025 Encounter Details Date Type Department Care Team (Late st Contact Info) Description 04/01/2025 Refill [facility] Primary Care [address] [place] [address] [place] [address] [place] [address] Generalized anxiety disorder with panic attacks Social History Tobacco Use Types Packs/Day Years [...] AM CDT Sexual Orientation Not on file documented as of this encounter Miscellaneous Notes * Telephone Encounter - Lianet William RN - 04/01/2025 12:02 PM CDT I have verified this refill request with current med list. Last office visit and next office visit are up-to-date. Recent Visits Date Type Provider Dept 12/01/24 Office Visit Deborah Santa NP [facility] Primary [facility] Michelle Showing recent visits within past 540 days with a meds authorizing provider and meeting all other requirements Future Appointments No visits were found meeting these conditions. Showing future appointments within next 365 days with a meds authorizing provider and meeting all other requirements Return in about 6 months (around 06/03/2025), or if symptoms worsen or fail to improve, for Chronic Conditions Coord (618). * Telephone Encounter - Lianet William RN - 04/01/2025 11:58 AM CDT I have verified this refill request with current med list. Last office visit and next office visit are up-to-date. Recent Visits Date Type Provider Dept 12/01/24 Office Visit Deborah Santa NP [facility] Primary [facility] Michelle Showing recent visits within past 540 days with a meds authorizing provider and meeting all other requirements Future Appointments No visits were found meeting these conditions. Showing future appointments within next 365 days with a meds authorizing provider and meeting all other requirements documented in this encounter Plan of Treatment Upcoming Encounters Date Type Department Care Team (Late st Contact Info) Description 04/14/2025 12:00 PM CDT Office Visit [facility] Endocrinology [address] [place] [address] Dada Pardo MD [address] [place] [address] 07/25/2025 2:15 PM CORK INSULATION SETTER Office Visit [facility] Endocrinology [address] [place] [address] Dada Pardo MD [address] [place] [address] documented as of this encounter Visit Diagnoses Diagnosis Generalized anxiety disorder with panic attacks documented in this encounter Additional Health Concerns Assessment Noted Time PHQ-9 Depression Total Score: 2 12/02/19 25 3:09 PM CDT documented as of this encounter Care Teams Senior Principal Process Engineer Relationship Specialty Start [place] [address] [place] [address] PCP - General Family Practice 12/01/24 documented as of this encounter
--- OUTSIDE RECORDS SUMMARY | 2025-04-06 17:41 | XMS_ITS | Encounter Summary ---
Author Organization [facility] Healthcare Address [address] [place] [address] Care Team Providers Care Senior Telecommunications Technician Name Role Phone Lynda Hinds MD Primary Care Provider [phone] Jacquelyn Mejia MD Primary Care Provider [phone] Paco Orr MD Unavailable Chris Goode MD Unavailable Celestine Garcia NP Unavailable [phone] Deandre Caraballo MD Unavailable Javier Davis MD Unavailable [phone] Spencer Horn MD Unavailable Miscellaneous, Not In File Unavailable Unava ilable Encounter Details Date Type Department Care Team (Late st Contact Info) Description 01/23/2021 Orders Only [facility] [address] [place] [address] Armida Lea, MELLISSA Social History Tobacco Use Types Packs/Day Years Used Date Smoking Tobacco: Never Alcohol Use Standard Drinks/Week Comments Never 0 (1 standard drink = 0.6 oz pur e alcohol) AUDIT-C Answer Date Recorded Q1: How often do you have a drink containing alc ohol? 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 Gender Identity Not on file Sexual Orientation Not on file documented as of this encounter Plan of Treatment Not on file documented as of this encounter Visit Diagnoses Not on filedocumented in this encounter Additional Health Concerns Infection Onset Date Last Indicated Resolved Time COVID: Suspected 06/21/2022 06/21/2022 06/21/2022 10:25 PM CDT documented as of this encounter Care Teams Senior Telecommunications Technician Relationship Specialty [place] [address] [place] [phone] PCP - General Family Medicine 01/30/22 06/22/24 [place] [address] [place] [address] PCP - General Family Medicine 06/23/24 Paco Orr MD [address] DIV OBGYN PELVIC MED/RECONSTRUCT SURG, [facility] [address] [place] [address] Referring Physician Urogynecology 08/30/24 Chris Goode MD [address] [facility] [address] DIV IM BONE MARROW TRANSPLANT, , [address] [place] [address] Consulting Physician Medical Oncology 08/30/24 Celestine Garcia PACK CHANGER [address] [facility] [address] [place] [address] Nurse Practitioner Pain Management 08/31/24 [place] [address] [address] [facility] [address] [address] Consulting Physician Pain Management 11/24/24 [place] [address] [address] [facility] [address] [address] Surgeon Cardiothoracic Surgery 12/23/24 Spencer Horn MD [address] [facility] [address] [facility] [address] [facility] C[address] [place] [address] Consulting Physician Cardiology 12/23/24 Miscellaneous, Not In File 12/23/24 documented as of this encounter
--- OUTSIDE RECORDS SUMMARY | 2025-04-06 17:41 | XMS_ITS | Clinical Summary ---
Author Organization [facility] Address [address] [place] [address] Care Team Providers Care Tour Agent Name Role Phone Jacquelyn Mejia MD Primary Care Provider Allergies Active Allergy Reactions Criticality Noted Date Comments Codeine Hallucination Medium 08/22/2020 Sulfa (Sulfonamide Antibiotics) Nausea and Vomiting Low 07/27/1980 Medications Multivitamin Capsule Take by mouth daily. Active Acetone, Urine, Test (Ketone Urine Test) Strip Use as directed 100 Strip 08/14/20 21 Active Insulin [place], Disposable, 31 gauge x 3/16 NeedleIndications: Type 1 diabetes mellitus with diabetic polyneuropathy (CMS/HCC) Use with insulin 4 times daily. 400 Each 3 02/06/20 22 Active ketoconazole (NIZORAL) 2 % CreamIndications:F ungal infection Apply to affected area 2 times daily. 15 Gram 02/22/20 23 Active atorvastatin (LIPITOR) 80 mg tablet Take 80 mg by mouth daily. Active alpha lipoic acid 600 mg Tablet Take 1 Capsule by mouth 2 times daily. 12/04/19 24 Active carvediloL (COREG) 12.5 mg tablet Take 1 Tablet (12.5 mg) by mouth 2 times daily. 200 Tablet 3 02/10/20 24 Active Insulin [place], Disposable, 31 gauge x 3/16 Needle 5 x daily 500 Each 3 02/10/20 24 Active estradioL (ESTRACE) 0.01% (0.1 mg/g) vaginal cream Insert 1 Gram vaginally daily. Active Accu-Chek Softclix Lancets 3 a day e10.9 300 Each 1 05/25/20 24 Active blood sugar diagnostic Strip Accu chek guide strips on pump Use to check blood sugar 3 daily as directed e11.9 ACCU-CHEK guideTEST STRIP on pump 300 Each 3 06/02/20 24 Active furosemide (LASIX) 40 mg tablet Take 0.5 Tablets (20 mg) by mouth daily. 15 Tablet 11 09/06/20 24 025 Active Lyrica 75 mg Capsule TAKE 1 CAPSULE DAILY AT BEDTIME 90 Capsule 1 10/03/19 25 Active insulin lispro (HumaLOG,ADMELOG) 100 unit/mL vial FILL PUMP RESERVOIR DIRECTED, MAX DAILY DOSE IS 100 UNITS 90 mL 1 11/17/19 25 Active hydrOXYzine HCL (ATARAX) 25 mg tabletIndications: Generalized anxiety disorder with panic attacks Take 1 Tablet (25 mg) by mouth 2 times daily as needed for Itching. 60 Tablet 12/02/19 25 Active clopidogreL (PLAVIX) 75 mg Tablet Take 75 mg by mouth. Active potassium aminobenzoate (POTABA) 500 mg Capsule Take 12 g/day by mouth every 6 hours. Active levothyroxine 137 mcg tablet Take 1 Tablet (137 mcg) by mouth daily. 90 Tablet 3 04/01/20 25 Active escitalopram oxalate (LEXAPRO) 10 mg tabletIndications: Generalized anxiety disorder with panic attacks TAKE ONE 20 MG TABLET AND ONE 10 MG TABLET DAILY FOR 30 MG TOTAL DAILY 100 Tablet 2 04/01/20 25 Active escitalopram oxalate (LEXAPRO) 20 mg tabletIndications: Generalized anxiety disorder with panic attacks TAKE ONE 20 MG TABLET AND ONE 10 MG TABLET DAILY FOR 30 MG TOTAL DAILY (DOSE INCREASE) 100 Tablet 2 04/01/20 25 Active rivaroxaban (XARELTO) 20 mg TabletIndications: History of DVT (deep vein thrombosis) Take 1 Tablet (20 mg) by mouth daily. 90 Tablet 1 04/04/20 25 Active rivaroxaban (XARELTO) 20 mg TabletIndications: History of DVT (deep vein thrombosis) Take 1 Tablet (20 mg) by mouth daily. 90 Tablet 3 02/10/20 24 025 Discontin ued(Reord er) levothyroxine 137 mcg tablet Take 1 Tablet (137 mcg) by mouth daily. 90 Tablet 3 02/24/20 24 025 Discontin ued(Reord er) escitalopram oxalate (LEXAPRO) 10 mg tabletIndications: Generalized anxiety disorder with panic attacks TAKE ONE 20 MG TABLET AND ONE 10 MG TABLET DAILY FOR 30 MG TOTAL DAILY 100 Tablet 12/17/19 25 025 Discontin ued(Reord er) escitalopram oxalate (LEXAPRO) 20 mg tabletIndications: Generalized anxiety disorder with panic attacks TAKE ONE 20 MG TABLET AND ONE 10 MG TABLET DAILY FOR 30 MG TOTAL DAILY (DOSE INCREASE) 100 Tablet 3 01/13/20 25 025 Discontin ued(Reord er) Active Problems Patient Care Coordination No te Formatting of this note migh t be different from the original. Pain specialist - Dr. Caraballo Cardiology - Dr. Miller Problem Noted Date Diagnosed Date Chronic pain disorder 04/08/2022 Overview (12/08/2023): Hx fall, back surgery; sees a pain specialist Osteopenia of multiple sites 03/30/2021 PTSD (post-traumatic stress disorder) 10/18/2020 Generalized anxiety disorder with panic attacks 10/18/2020 CAD in [place] artery 10/10/2020 H/O right coronary artery stent placement 2020 Pure hypercholesterolemia 10/10/2020 Lumbosacral spondylosis without myelopathy 08/22 Radiculopathy, lumbosacral region 08/22/2020 Sacroiliitis 08/22/2020 Spinal stenosis of lumbar re gion without neurogenic claudication 08/22/2020 Personal history of DVT (deep vein thrombosis) 0 11/26/2018 Hypothyroidism 02/01/2015 Coronary atherosclerosis 02/01/2015 Type 1 diabetes mellitus with diabetic polyneuro tee 02/01/2015 Hypertension 02/01/2015 Lymphadenopathy 09/06/2011 History of DVT (deep vein thrombosis) Overview (08/20/2020): LLE, on Xarelto Type 1 diabetes mellitus with cardiac complicati on Resolved Problems Problem Noted Date Diagnosed Date Resolved Date Stage 3a chronic kidney disease 05/15/2021 12/18/2021 Type I diabetes mellitus wit h ophthalmic manifestations, uncontrolled 03/30/2021 01/02/2023 Right hip pain 01/23/2021 04/27/2024 Mixed hyperlipidemia 05/22/2016 023 Type 1 diabetes mellitus 02/01/201502/2024 Wrist pain, left 06/28/2012 04/27/2024 Left leg pain 02/12/2012 04/27/2024 Encounters Date Type Department Care Team Description 04/05/2025 External Device Data STL ABSTRACTION Provider, Abstract 04/01/2025 [facility] [place] [address] [place] [phone] Jacquelyn Mejia MD Generalized anxiety disorder with panic attacks 04/01/2025 [facility] Endocrinology [address] [place] [id number] Dada Pardo MD 03/22/2025 External Device Data STL ABSTRACTION Provider, Abstract 03/02/2025 [facility] [place] [place] [phone] Jacquelyn Mejia MD History of DVT (deep vein thrombosis) 02/17/2025 Results Follow-Up [address] [address] Kathy Longo, LAURIE URINALYSIS WITH REFLEX CULTURE 02/16[facility] [place] [address] [place] [phone] Jacquelyn Mejia MD Clinical Consult Before Scheduling 02/08/2025 External Device Data STL ABSTRACTION Provider, Abstract 01/12/2025 [facility] [place] [place] [phone] Jacquelyn Mejia MD Generalized anxiety disorder with panic attacks from Last 3 Months Immunizations Immunization Administration Dates Next Due (PFIZER)(12 YR UP) COVID-19 VACCINE - EMERGENCY USE AUTHORIZATION, MRNA, [id number](PF) 30 MCG/0.3 ML IM SUSP 02/03/2022,07/04/2021,11/09/2020,10/19 (PREVNAR 20)(6 WKS UP) PNEUM OCOCCAL CONJUGATE VACCINE 20-VALENT (PCV20), POLYSACCHARIDE [id number] CONJUGATE, ADJUVANT 0.5 ML (PF) IM 02/18/2023 (SHINGRIX)(50 YRS UP) ZOSTER VACCINE RECOMBINANT, 0.5 ML, IM 08/31/2018,05/26/2018 INFLUENZA VACCINE HIGH DOSE QUADRIVALENT 65 YR UP PF IM 06/19/2023,07/24/2020 INFLUENZA VACCINE QUADRIVALE NT ADJ 65 YR UP PF IM 07/03/2022 Influenza Seasonal Unspecifi ed Formulation IM 06/22/2021,07/01/2020,07/11/2017 Influenza Vaccine High Dose 65+ Yrs IM 9,09/08/2018 Zoster Vaccine Live SQ 1950 Family History Medical History Relation Name Comments Heart Disease Brother Boubacar Doss staph infectio n s/p valve replacement Diabetes Father Austyn Doss Jr. He had type 1 Cancer Maternal Grandmother Seth Chan Hypertension Mother Hannah Doss Kidney Disease Mother Hannah Doss Thyroid Disease Mother Hannah Doss Parkinson's Disease Sister Relation Name Status Comments Brother Boubacar Doss Alive Father Austyn Doss Jr. Maternal Grandmother Seth Chan Mother Hannah Doss Sister Alive Social History Tobacco Use Types Packs/Day Years Used Date Smoking Tobacco: Former Cigarettes 1 30 1 11/04/1968 - 09/03/1999 Smokeless Tobacco: Never Tobacco Cessation:Counseling Given: Not Answered Comments:Smoked 30 years, about 1ppd Alcohol Use Standard Drinks/Week Comments No 0 (1 standard drink = 0.6 oz pur e alcohol) Comments No Sex and Gender Information Value Date Recorded Sex Assigned at Female 04/20/2024 11:32 AM CDT Legal Sex Female 2:18 PM CDT Gender Identity Female 04/20/2024 11:32 AM CDT Sexual Orientation Not on file Last Filed Vital Signs Vital Sign Reading Time Taken Comments Blood Pressure 118/75 12/30/2024 12:27 PM CDT Pulse 67 12/30/2024 12:27 PM CDT Temperature 36.6 C (97.9 F) 12/01/2024 2:58 PM CDT Respiratory Rate 18 06/16/2020 9:29 AM CDT Oxygen Saturation 97% 12/30/2024 12:27 PM CDT Inhaled Oxygen Concentration - - Weight 88.9 kg (196 lb) 12/30/2024 12:27 PM CDT Height 175.3 cm (5' 9) 12/30/2024 12:27 PM CDT Body Mass Index 28.94 12/30/2024 12:27 PM CDT Plan of Treatment Upcoming Encounters Date Type Department Care Team (Late st Contact Info) Description 04/14/2025 12:00 PM CDT Office Visit [facility] Endocrinology [address] [place] [address] Dada Pardo MD [address] [place] [address] 07/25/2025 2:15 PM [employer]LECT[employer] SUPERVISOR Office Visit [facility] Endocrinology [address] [place] [address] Dada Pardo MD [address] [place] [address] Health Maintenance Due Date Last Done Comments FIT/FOBT Q 1 YEAR (AUTO ORDER) 1970 DTAP/TDAP/TD VACCINES (1 - Tdap) 11/28/1971 FIT/FOBT Q 1 year 1997 Flex Sig/CT Colonography Q 5 years 1997 RSV VACCINE (60+ or ) (1 - Risk 60-74 years 1-dose series) 2012 BREAST CANCER SCREENING 12/07/2022 12/08/19 22, 12/07/2021, 12/03/2021, Additional history exists COVID-19 Vaccine (5 - 2023-2 5 season) 2024 02/03/2022, 07/04/2021, 11/09/2020, Additional history exists DIABETES MICROALBUMIN ANNUAL SCREEN 12/08/2024 12/09/2023, 01/01/2023, 02/04/2022, Additional history exists DIABETES ANNUAL RETINAL EXAM 01/30/202507/2024, 01/31/2024, 01/31/2024, Additional history exists INFLUENZA VACCINE (#1) 2025 3, 07/03/2022, 06/22/2021, Additional history exists DIABETES HBA1C Q 6 MONTHS 07/01/20252024, 08/27/2024, 08/27/2024, Additional history exists LDL CHOLESTEROL ANNUAL 08/11/2025 4 (Previously completed), 12/09/2023, 01/01/2023, Additional history exists Traditional Medicare (ACO) A nnual Wellness Visit 12/02/2025 12/01/2024, 12/08/2023, 02/05/2023, Additional history exists DIABETES ANNUAL FOOT EXAM 12/30/20252024, 09/06/2024, 04/27/2024, Additional history exists DIABETES: A1C (Auto Order) 12/30/202512/30, 08/27/2024, 08/27/2024, Additional history exists OSTEOPOROSIS SCREENING 12/03/2026 2, 12/03/2021, 12/03/2021, Additional history exists FIT-DNA Q 3 years 12/28/2026 12/29/2023 FIT/ DNA Q 3 YEARS (AUTO ORDER) 12/28/2026 4, 12/29/2023 FLEX SIG/CT COLONOGRAPHY Q 5 YEARS (AUTO ORDER) 12/28/2028 12/29/2023, 12/29/2023 COLORECTAL CANCER SCREENING (AUTO ORDER) 07/27/2029 07/27/2019, 02/26/2007, 02/26/2007, Additional history exists COLORECTAL SCREENING 07/27/2029 07/27/2019, 02/26/2007, 02/26/2007, Additional history exists Colorectal Cancer Screening (AUTO ORDER) 07/27/2029 Colorectal Cancer Screening 07/27/2029 ZOSTER VACCINE Completed 08/31/2018, 090 12/2017, 1950 PNEUMOCOCCAL VACCINE 50+ YEARS Completed 02/18/2023 Procedures Procedure Name Priority Date/Time Associated Diagnosis Comments URINALYSIS WITH REFLEX CULTURE Routine 02/16/2025 3:07 PM CDT Dysuria HEMOGLOBIN A1C Routine 12/30/2024 1:02 PM CDT Type 1 diabetes mellitus with diabetic polyneuropathy HM DIABETES EYE EXAM Routine 01/31/2024 9:25 AM CDT COLON CANCER SCREEN, STOOL DNA Routine 12/29/2023 6:15 PM CDT Screening for colon cancer MICROALBUMIN/CREA TININE RATIO, RANDOM UR Routine 12/09/2023 9:43 AM CDT LIPID PANEL Routine 12/09/2023 9:43 AM CDT Pure hypercholesterolemia MAMMO 3D CHRISTIE SCREEN BILAT W OR WO CAD Routine 12/03/2021 2:03 PM CDT Breast cancer screening by mammogram XR DEXA BONE DENSITY AXIAL 1 OR MORE SITES Routine 12/03/2021 12:25 PM CDT Osteopenia of multiple sites ENDOSCOPY, COLON, DIAGNOSTIC 02/26/2007 12:00 AM CDT from Last 3 Months or Most Recently Relevant to Health Maintenance Results * (ABNORMAL) URINALYSIS WITH REFLEX CULTURE (02/16/2025 3:07 PM CDT) COLOR UA DARK YELLOW YELLOW [facility] CLARITY UA CLEAR CLEAR [facility] SPECIFIC GRAVITY UA 1.029 1.001 - 1.035 [facility] PH UA 5.5 5.0 - 8.0 [facility] GLUCOSE UA TRACE(A) NEGATIVE [facility] BILIRUBIN UA NEGATIVE NEGATIVE [facility] KETONES UA TRACE(A) NEGATIVE [facility] BLOOD UA NEGATIVE NEGATIVE [facility] PROTEIN UA NEGATIVE NEGATIVE [facility] NITRITE UA NEGATIVE NEGATIVE [facility] LEUKOCYTE ESTERASE UA NEGATIVE NEGATIVE [facility] WBC UA 0-5 < OR = 5 /HPF [facility] RBC UA 0-2 < OR = 2 /HPF [facility] EPITHELIAL CELLS, URINE NONE SEEN < OR = 5 /HPF [facility] BACTERIA UA NONE SEEN NONE SEEN /HPF [facility] CA OXALATE CRYSTAL MANY(A) NONE OR FEW /HPF [facility] HYALINE CAST NONE SEEN NONE SEEN /LPF [facility] URINE NOTE [facility] Comment: This urine was analyzed for the presence of WBC, RBC, bacteria, casts, and other formed elements. Only those elements seen were reported. URINE CULTURE [facility] Comment: NO CULTURE INDICATED Test Performed at: [facility] [place] [address] [address] [place] [address] Yum[facility]Valencia Neal Urine URINE SPECIMEN OBTAINED BY CLEAN CATCH PROCEDURE / Unknown 02/16/2025 3:07 PM CDT 02/16/2025 3:09 PM CDT Kathy Longo [facility] URINE ORDERABLES Final Res ult [facility] [phone] [place] [address] [address] [place] [address] * (ABNORMAL) HEMOGLOBIN A1C (12/30/2024 1:02 PM CDT) HEMOGLOBIN A1C 7.5(H) <5.7 % of total Hgb [facility] Comment: For someone without known diabetes, a hemoglobin A1c value of 6.5% or greater indicates that they may have diabetes and this should be confirmed with a follow-up test. For someone with known diabetes, a value <7% indicates that their diabetes is well controlled and a value greater than or equal to 7% indicates suboptimal control. A1c targets should be individualized based on duration of diabetes, age, comorbid conditions, and other considerations. Currently, no consensus exists regarding use of hemoglobin A1c for diagnosis of diabetes for children. ESTIMATED AVERAGE GLUCOSE (MG/DL) 169 mg/dL [facility]iles ESTIMATED AVERAGE GLUCOSE (MMOL/L) 9.3 mmol/L [facility] Comment: Test Performed at: [facility] [place] [address] [address] [place] [address] Timoteo Neal Blood 12/30/2024 1:02 PM CDT 12/30/2024 1:03 PM CDT Dada Pardo MD CHEMISTRY ORDERABLES Final Result [facility] [phone] [facility] [address] [place] [address] * HM DIABETES EYE EXAM (01/31/2024 9:25 AM CDT) Abstract Provider HEALTH MAINTENANCE Edited Resu lt - Final [facility] * COLON CANCER SCREEN, STOOL DNA (12/29/2023 6:15 PM CDT) COLOGUARD RESULT Negative Negative [facility] Comment: NEGATIVE TEST RESULT. A negative Cologuard result indicates a low likelihood that a colorectal cancer (CRC) or advanced adenoma (adenomatous polyps with more advanced pre-malignant features) is present. The chance that a person with a negative Cologuard test has a colorectal cancer is less than 1 in 1500 (negative predictive value >99.9%) or has an advanced adenoma is less than 5.3% (negative predictive value 94.7%). These data are based on a prospective cross-sectional study of 10,000 individuals at average risk for colorectal cancer who were screened with both Cologuard and colonoscopy. (Rafael Sheldon al, N Engl J Med 2014;370(14):9936-8766) The normal value (reference range) for this assay is negative. COLOGUARD RE-SCREENING RECOMMENDATION: Periodic colorectal cancer screening is an important part of preventive healthcare for asymptomatic individuals at average risk for colorectal cancer. Following a negative Cologuard result, the [employer] and U.S. Multi-Society Task Force screening guidelines recommend a Cologuard re-screening interval of 3 years. References: [employer] Guideline for Colorectal Cancer Screening: https://www.cancer.org/cancer/cenyq-uimigu-uhenwy/txbfdccwc-pyxtudzqj-xnxwcby/ac s-rec ommendations.html.; Ubaldo DK, Rosalio CR, Rashawn KIMBROUGH, Colorectal Cancer Screening: Recommendations for Physicians and Patients from the U.S. Multi-Society Task Force on Colorectal Cancer Screening , Am J Gastroenterology 2017; 112:0722-9883. TEST DESCRIPTION: Composite algorithmic analysis of stool DNA-biomarkers with hemoglobin immunoassay. Quantitative values of individual biomarkers are not reportable and are not associated with individual biomarker result reference ranges. Cologuard is intended for colorectal cancer screening of adults of either sex, 45 years or older, who are at average-risk for colorectal cancer (CRC). Cologuard has been approved for use by the U.S. FDA. The performance of Cologuard was established in a cross sectional study of average-risk adults aged 50-84. Cologuard performance in patients ages 45 to 49 years was estimated by sub-group analysis of near-age groups. Colonoscopies performed for a positive result may find as the most clinically significant lesion: colorectal cancer [4.0%], advanced adenoma (including sessile serrated polyps greater than or equal to 1cm diameter) [20%] or non- advanced adenoma [31%]; or no colorectal neoplasia [45%]. These estimates are derived from a prospective cross-sectional screening study of 10,000 individuals at average risk for colorectal cancer who were screened with both Cologuard and colonoscopy. (Rafael Rasmussen et al, N Engl J Med 2014;370(14):6306-7525.) Cologuard may produce a false negative or false positive result (no colorectal cancer or precancerous polyp present at colonoscopy follow up). A negative Cologuard test result does not guarantee the absence of CRC or advanced adenoma (pre-cancer). The current Cologuard screening interval is every 3 years. ([employer] and U.S. Multi-Society Task Force). Cologuard performance data in a 10,000 patient pivotal study using colonoscopy as the reference method can be accessed at the following location: www.Imcompany.com/results. Additional description of the Cologuard test process, warnings and precautions can be found at www.Riskifiedrd.com. Stool STOOL SPECIMEN / Unknown 12/29/2023 6:15 PM CDT 12/31/2023 3:09 PM CDT Lynda Hinds MD BODY FLUIDS AND STOOLS Fi nal Result [facility] CLIA # [id number] [address], [address] [place] [address] * MICROALBUMIN/CREATININE RATIO, RANDOM UR (12/09/2023 9:43 AM CDT) Creatinine, Urine 232 20 - 275 mg/dL [facility] MICROALBUMIN, URINE 3.3 See Note: mg/dL [facility] Comment: Reference Range: Reference Range Not established MICROALBUMIN/CREAT RATIO, UR 14 <30 mg/g creat [facility] Comment: The ADA defines abnormalities in albumin excretion as follows: Albuminuria Category Result (mg/g creatinine) Normal to Mildly increased <30 Moderately increased 30-299 Severely increased > OR = 300 The ADA recommends that at least two of three specimens collected within a 3-6 month period be abnormal before considering a patient to be within a diagnostic category. NO SCAN OF CARD FASTING:YES FASTING: YES Test Performed at: [facility] [place] [address] Timoteo Mendes MD 12/09/2023 9:43 AM CDT 12/09/2023 9:47 AM CDT Dada Pardo MD URINE ORDERABLES Kayiln l Result Performing Organization Address City/[facility]/ZIP Co de Phone Number [facility] [phone] [place] [address] [facility] [place] [address] * LIPID PANEL (12/09/2023 9:43 AM CDT) CHOLESTEROL 151 <200 mg/dL [facility] HDL 58 > OR = 50 mg/dL [facility] TRIGLYCERIDE 98 <150 mg/dL [facility] LDL CALCULATED 75 mg/dL (calc) [facility] Comment: Reference range: <100 Desirable range <100 mg/dL for primary prevention; <70 mg/dL for patients with CHD or diabetic patients with > or = 2 CHD risk factors. LDL-C is now calculated using the Paxton-Chavira calculation, which is a validated novel method providing better accuracy than the Friedewald equation in the estimation of LDL-C. Paxton BURROUGHS et al. ANNA. 2013;310(19): 1865-4742 (http://education.[employer]faq/MRP828) CHOL/HDL RATIO 2.6 <5.0 (calc) [facility] TOTAL NON-HDL CHOL(LDL+VLDL) 93 <130 mg/dL (calc) [facility] Comment: For patients with diabetes plus 1 major ASCVD risk factor, treating to a non-HDL-C goal of <100 mg/dL (LDL-C of <70 mg/dL) is considered a therapeutic option. AR[address] [place] [address] Blood 12/09/2023 9:43 AM CDT 12/09/2023 9:47 AM CDT Dada Pardo MD CHEMISTRY ORDERABLES Final Result [facility] [phone] [facility] [address] [place] [address] * MAMMO SCRN BILAT 3D CHRISTIE W OR WO CAD (12/03/2021 2:03 PM CDT) Anatomical Region Laterality Modality Breast Bilateral Mammography 12/03/2021 2:03 PM CDT Impressions 12/07/2021 3:04 PM CDT IMPRESSION: No mammographic evidence of malignancy. OVERALL FINAL ASSESSMENT: BI-RADS Category 2: Benign finding(s). RECOMMENDATION: Bilateral screening mammogram in one year. DICTATION LOCATION: [facility] Narrative 12/07/2021 3:04 PM CDT BILATERAL SCREENING DIGITAL MAMMOGRAM WITH 3D TOMOSYNTHESIS AND CAD DATE: 12/03/2021 2:03 PM COMPARISON: Multiple prior mammograms, dating back to 03/04/2017 and most recently 09/06/2020. HISTORY: Screening mammogram. History of breast reduction. TECHNIQUE: Low-dose full-field digital breast tomosynthesis examination was performed with 2D and 3D acquisitions. BREAST COMPOSITION: There are scattered areas of fibroglandular density. FINDINGS: Postoperative appearance of reduction mammoplasty. There is no suspicious mass, clustered microcalcification, or architectural distortion in either breast on 2D or 3D images. There has been no change in the mammographic appearance compared with the prior study. Procedure Note Sergio Agarwal MD - 12/07/2021 BILATERAL SCREENING DIGITAL MAMMOGRAM WITH 3D TOMOSYNTHESIS AND CAD DATE: 12/03/2021 2:03 PM COMPARISON: Multiple prior mammograms, dating back to 03/04/2017 and most recently 09/06/2020. HISTORY: Screening mammogram. History of breast reduction. TECHNIQUE: Low-dose full-field digital breast tomosynthesis examination was performed with 2D and 3D acquisitions. BREAST COMPOSITION: There are scattered areas of fibroglandular density. FINDINGS: Postoperative appearance of reduction mammoplasty. There is no suspicious mass, clustered microcalcification, or architectural distortion in either breast on 2D or 3D images. There has been no change in the mammographic appearance compared with the prior study. IMPRESSION: No mammographic evidence of malignancy. OVERALL FINAL ASSESSMENT: BI-RADS Category 2: Benign finding(s). RECOMMENDATION: Bilateral screening mammogram in one year. DICTATION LOCATION: [facility] Lynda Hinds MD MAMMO ORDERABLES Final Re sult * XR DEXA BONE DENSITY AXIAL 1 OR MORE SITES (12/03/2021 12:25 PM CDT) Anatomical Region Laterality Modality Digital Radiogra phy 12/03/2021 12:3 2 PM CDT Narrative 12/03/2021 12:36 PM CDT XR DEXA BONE DENSITY AXIAL 1 OR MORE SITES DATE: 12/03/2021 12:25 PM HISTORY: 71 years old Female with post menopausal symptoms. PROCEDURE: Planar images of the lumbar spine, forearm and hip(s) using a TIMPIK DEXA scanner for bone mineral density determination (BMD). Absolute bone mineral density measurements (in gm/cm^2) are available on the original PACS report. FINDINGS: Lumbar Spine (L1-L3) T-score: +0.5 Left femoral neck T-score: -1.7 Right femoral neck T-score: -1.8 Left Radius 33% T-score: -0.9 Comments: None IMPRESSION Osteopenic bone mineral density. DEFINITIONS: Normal: T-score above -1.0 Osteopenia T-score less than -1.0 and above -2.5 Osteoporosis: T-score < -2.5 FRAX FRACTURE RISK ASSESSMENT: Risk factors: Family history, secondary osteoporosis 10 Year Probability Of Fracture -Major Osteoporotic: 17.4% -Hip: 3.3% -Comparison population: [place], A major osteoporotic fracture is defined as a fracture of the spine, forearm, hip or shoulder. FOLLOW-UP RECOMMENDATIONS: Patients without high risk factors for osteoporosis: T-score -1.0 to -1.5 - Consider repeat BMD in 5-10 years T-score -1.5 to -2.0 - Consider repeat BMD in 3-5 years T-score -2.0 to - 2.5 - Consider repeat BMD every 2 years Patients on treatment for osteoporosis: 1-2 years after initiation of treatment and every 2 years [address] Deandre Almodovar DO DICTATION LOCATION: Location 1 - [facility] Procedure Note Deandre Almodovar DO - 12/03/2021 XR DEXA BONE DENSITY AXIAL 1 OR MORE SITES DATE: 12/03/2021 12:25 PM HISTORY: 71 years old Female with post menopausal symptoms. PROCEDURE: Planar images of the lumbar spine, forearm and hip(s) using a TIMPIK DEXA scanner for bone mineral density determination (BMD). Absolute bone mineral density measurements (in gm/cm^2) are available on the original PACS report. FINDINGS: Lumbar Spine (L1-L3) T-score: +0.5 Left femoral neck T-score: -1.7 Right femoral neck T-score: -1.8 Left Radius 33% T-score: -0.9 Comments: None IMPRESSION Osteopenic bone mineral density. DEFINITIONS: Normal: T-score above -1.0 Osteopenia T-score less than -1.0 and above -2.5 Osteoporosis: T-score < -2.5 FRAX FRACTURE RISK ASSESSMENT: Risk factors: Family history, secondary osteoporosis 10 Year Probability Of Fracture -Major Osteoporotic: 17.4% -Hip: 3.3% -Comparison population: [place], A major osteoporotic fracture is defined as a fracture of the spine, forearm, hip or shoulder. FOLLOW-UP RECOMMENDATIONS: Patients without high risk factors for osteoporosis: T-score -1.0 to -1.5 - Consider repeat BMD in 5-10 years T-score -1.5 to -2.0 - Consider repeat BMD in 3-5 years T-score -2.0 to - 2.5 - Consider repeat BMD every 2 years Patients on treatment for osteoporosis: 1-2 years after initiation of treatment and every 2 [address] Deandre Almodovar, DO DICTATION LOCATION: Location 1 - [facility] Dada Pardo MD DIAGNOSTIC IMAGING OR DERABLES Final Result * ENDOSCOPY, COLON, DIAGNOSTIC (02/26/2007 12:00 AM CDT) Sgf Scanning GI PROCEDURE ORDERABLES Edited R esult - Final from Last 3 Months or Most Recently Relevant to Health Maintenance Insurance MEDICARE PART A AND B [facility] Advance Directives For more information, please contact: [phone] Documents on File Type Date Recorded Patient Web Assistant Expl anation Advance Directive POA 06/30/2023 12:30 PM Advance Directive POA Advance Directive POA 06/27/2023 2:14 PM A dvance Directive POA Care Teams Tour Agent Relationship Specialty [place] [address] [place] [address] PCP - General Family Practice 12/01/24
--- OUTSIDE RECORDS SUMMARY | 2025-04-06 17:41 | XMS_ITS | Encounter Summary ---
Author Organization [facility] Healthcare Address [address] [place] [address] Care Team Providers Care Fiberglass Grinder Name Role Phone Jacquelyn Mejia MD Primary Care Provider [phone] Paco Orr MD Unavailable Chris Goode MD Unavailable Celestine Garcia NP Unavailable Deandre Caraballo MD Unavailable Javier Davis MD Unavailable [phone] Spencer Horn MD Unavailable Miscellaneous, Not In File Unavailable Unava ilable Encounter Details Date Type Department Care Team (Late st Contact Info) Description 12/28/2024 [facility] Post Discharge Follow up phone call [facility] [address] [place] [address] Kiya Carlisle Social History Tobacco Use Types Packs/Day Years Used Date Smoking Tobacco: Former Cigarettes 1 15 0 09/22/1984 - 09/22/1999 Smokeless Tobacco: Never Alcohol Use Standard Drinks/Week Comments Never 0 (1 standard drink = 0.6 oz pur e alcohol) [facility] Utilities Answer Date Recorded In the past 12 months has th e electric, gas, oil, or water company threatened to shut off services in your home? No 12/21/2024 Social Connection and Isolation Panel [NHANES] A nswer Date Recorded In a typical week, how many times do you talk on the phone with family, friends, or neighbors? Once a week 12/21/2024 How often do you get together with friends or re latives? Once a week 12/21/2024 How often do you attend hindu or synagogue serv ices? Never 12/21/2024 Do you belong to any clubs o r organizations such as hindu groups, unions, fraternal or athletic groups, or school groups? No 12/21/2024 How often do you attend meet ings of the clubs or organizations you belong to? Never 12/21/2024 Are you , , di vorced, , never , or living with a partner? 12/21/2024 AUDIT-C Answer Date Recorded Q1: How often do you have a drink containing alcohol? Never 12/17/2024 Q2: How many drinks containi ng alcohol do you have on a typical day when you are drinking? Patient does not drink Q3: How often do you have si x or more drinks on one occasion? Never 12/17/2024 Overall Financial Resource Strain (CARDIA) Answe r Date Recorded How hard is it for you to pa y for the very basics like food, housing, medical care, and heating? Hard 12/21/2024 Hunger Vital Sign Answer Date Recorded Within the past 12 months, y ou worried that your food would run out before you got the money to buy more. Never true 12/22/19 25 Within the past 12 months, t he food you bought just didn't last and you didn't have money to get more. Never true 12/21/2024 PRAPARE - Transportation Answer Date Re corded In the past 12 months, has l ack of transportation kept you from medical appointments or from getting medications? No 09/2024 In the past 12 months, has l ack of transportation kept you from meetings, work, or from getting things needed for daily living? No 12/21/2024 Housing Stability Vital Sign Answer Allan e Recorded In the last 12 months, was t here a time when you were not able to pay the mortgage or rent on time? No 12/21/2024 In the past 12 months, how m any times have you moved where you were living? 0 12/21/2024 At any time in the past 12 m [facility], were you homeless or living in a senior living (including now)? No 12/21/2024 Personal Safety Answer Date Recorded Have you ever been in or are you currently in a harmful physical or emotional relationship or is someone making you feel afraid or unsafe? 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 Gender Identity Not on file Sexual Orientation Not on file documented as of this encounter Plan of Treatment Not on file documented as of this encounter Visit Diagnoses Not on filedocumented in this encounter Care Teams Fiberglass Grinder Relationship Specialty Start [place] [address] [place] [address] PCP - General Family Medicine 06/23/24 Paco Orr MD [address] DIV OBGYN PELVIC MED/RECONSTRUCT SURG, [address] [place] [address] Referring Physician Urogynecology 08/30/24 Chris Goode MD [address] DIV IM BONE MARROW TRANSPLANT, , [address] [place] [address] Consulting Physician Medical Oncology 08/30/24 Celestine Garcia CRUTCHER HELPER [address] [place] [address] Nurse Practitioner Pain Management 08/31/24 [place] [address] [place] [address] Consulting Physician Pain Management 11/24/24 [place] [address] [facility] [address] [place] [address] Surgeon Cardiothoracic Surgery 12/23/24 Spencer Horn MD [address] [facility] [address] [facility], [address] [place] [address] Consulting Physician Cardiology 12/23/24 Miscellaneous, Not In File 12/23/24 documented as of this encounter
--- OUTSIDE RECORDS SUMMARY | 2025-04-06 17:41 | XMS_ITS | Encounter Summary ---
Author Organization [facility] Address [address] [place] [address] Care Team Providers Care Cloth Layer Name Role Phone Jacquelyn Mejia MD Primary Care Provider Encounter Details Date Type Department Care Team (Late st Contact Info) Description 04/05/2025 External Device Data STL ABSTRACTION Provider, Abstract NO ADDRESS ON FILE Social History Tobacco Use Types Packs/Day Years [...] Description 04/14/2025 12:00 PM CDT Office Visit [facility] Endocrinology [address] [place] [address] Dada Pardo MD [address] [place] [address] 07/25/2025 2:15 PM HEDIS REGISTERED NURSE RN Office Visit [facility] Endocrinology [address] [place] [address] Dada Pardo MD [address] [place] [address] documented as of this encounter Visit Diagnoses Not on filedocumented in this encounter Additional Health Concerns Assessment Noted Time PHQ-9 Depression Total Score: 2 12/02/19 25 3:09 PM CDT documented as of this encounter Care Teams Cloth Layer Relationship Specialty [place] [address] [place] [address] PCP - General Family Practice 12/01/24 documented as of this encounter
--- OUTSIDE RECORDS SUMMARY | 2025-04-06 17:41 | XMS_ITS | Encounter Summary ---
Author Organization [facility] Healthcare Address [address] [place] [address] Care Team Providers Care Enterprise Software Engineer Name Role Phone Jacquelyn Mejia MD Primary Care Provider Paco Orr MD Unavailable Chris Goode MD Unavailable Celestine Garcia NP Unavailable Deandre Caraballo MD Unavailable [phone] Javier Davis MD Unavailable [phone] Spencer Horn MD Unavailable Miscellaneous, Not In File Unavailable Unava ilable Reason for Visit * Reason Onset Date Comments Chest Pain 04/06/2025 Shortness of Breath 04/06/2025 Encounter Details Date Type Department Care Team (Late st Contact Info) Description 04/06/2025 Telephone [facility] Cardiology [address] [place] [address] Spencer Horn MD [address], [address] [place] [address] Chest Pain; Shortness of Breath Social History Tobacco Use Types Packs/Day Years Used Date Smoking Tobacco: Former Cigarettes 1 15 0 09/22/1984 - 09/22/1999 Smokeless Tobacco: Never Alcohol Use Standard Drinks/Week Comments Never 0 (1 standard drink = 0.6 oz pur e alcohol) [facility] Utilities Answer Date Recorded In the past [...] week 12/21/2024 How often do you attend buddhist or roman catholic serv ices? Never 12/21/2024 Do you belong to any clubs o r organizations such as buddhist groups, unions, fraternal or athletic groups, or [...] any time in the past 12 m [facility], were you homeless or living in a jail (including now)? No 12/21/2024 Personal Safety Answer Date Recorded Have you ever been in or are you currently in a harmful physical or emotional relationship or is someone making you feel afraid or unsafe? 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 Pt states symptoms started 1 week ago and are progressively getting worse. Pt states pain is under left arm and is not reproducible with movement or inspiration. Pt advised to go to the ER via ambulance since pt states that she cannot walk. Pt verbalizes understanding. * Telephone Encounter - Windy Cintron - 04/06/2025 1:18 PM CDT Pt states that for the past week or so she has been experiencing SOB on exertion and a constant chest pain on her left side. States that over the week it has been increasingly getting worse. Please advise. Thank you. Contact [phone] documented in this encounter Plan of Treatment Not on file documented as of this encounter Visit Diagnoses Not on filedocumented in this encounter Care Teams Enterprise Software Engineer Relationship Specialty Start [place] [address] [place] [address] PCP - General Family Medicine 06/23/24 Paco Orr MD [address] DIV OBGYN PELVIC MED/RECONSTRUCT SURG, [address] [place] [address] Referring Physician Urogynecology 08/30/24 Chris Goode MD [address] DIV IM BONE MARROW TRANSPLANT, [address] [place] [address] Consulting Physician Medical Oncology 08/30/24 Celestine Garcia INFANTRY UNIT LEADER [address] [place] [address] Nurse Practitioner Pain Management 08/31/24 [place] [address] [address] [place] [address] Consulting Physician Pain Management 11/24/24 [place] [address] [facility] [place] [place] [address] Surgeon Cardiothoracic Surgery 12/23/24 Spencer Horn MD [address] [facility] C, [address] [place] [address] Consulting Physician Cardiology 12/23/24 Miscellaneous, Not In File 12/23/24 documented as of this encounter
--- OUTSIDE RECORDS SUMMARY | 2025-04-06 17:41 | XMS_ITS ---
Author Name Auto Generated, Auto Generated Organization [facility] ices Address [address] [place] [address] Phone [phone] Care Team Providers Care Medical Insurance Verifier Name Role Phone Deandre Caraballo [facility] [phone] Functional Status No Results Mental Status No Results Allergies and Intolerances No Known Allergies Encounters Program Name Primary Diagnosis Admission Date/Time Dis charge Date/Time null FriJul 28 19:00:00 EST 2019 Problems Active Concerns * Pain in right leg* Code: * Start Date: FriOct 23 00:00:00 EST 2022 * End Date: * Text: * Pain in left leg* Code: * Start Date: FriOct 23 00:00:00 EST 2022 * End Date: * Text: * Muscle weakness (generalized)* Code: * Start Date: FriOct 23 00:00:00 EST 2022 * End Date: * Text: Reason for Referral Past Medical History
--- OUTSIDE RECORDS SUMMARY | 2025-04-06 17:41 | XMS_ITS | Encounter Summary ---
Author Organization [facility] Address [address] [place] [address] Care Team Providers Care Computer Trainer Name Role Phone Jacquelyn Mejia MD Primary Care Provider Encounter Details Date Type Department Care Team (Late st Contact Info) Description 03/21/2022 Refill [facility] Primary Care [address] [place] [address] Lynda Hinds MD NO ADDRESS ON FILE Social History Tobacco [...] Exposure Response Date Recorded In the last 10 days, have yo u been in contact with someone who was confirmed or suspected to have Coronavirus/COVID-19? No / Unsure 02/27/2022 3:53 PM CDT documented as of this encounter Plan of Treatment Upcoming Encounters Date Type Department Care Team (Late st Contact Info) Description 04/14/2025 12:00 PM CDT Office Visit [facility] Endocrinology [address] [place] [address] Dada Pardo MD [address] [place] [address] 07/25/2025 2:15 PM FIELD OBSERVER Office Visit [facility] Endocrinology [address] [place] [address] Dada Pardo MD [address] [place] [address] documented as of this encounter Visit Diagnoses Not on filedocumented in this encounter Additional Health Concerns Assessment Noted Time PHQ-9 Depression Total Score: 3 02/05/20 22 1:00 PM CDT documented as of this encounter Care Teams Computer Trainer Relationship Specialty Start [place] [address] [place] [address] PCP - General Family Practice 12/01/24 documented as of this encounter
--- OUTSIDE RECORDS SUMMARY | 2025-04-06 17:41 | XMS_ITS | Referral Summary ---
Author Organization [facility] Address [address] [place] [address] Care Team Providers Care Brick Maker Name Role Phone Jacquelyn Mejia MD Primary Care Provider Paco Orr MD Unavailable Chris Goode MD Unavailable Celestine Garcia NP Unavailable Deandre Caraballo MD Unavailable [phone] Javier Davis MD Unavailable [phone] Spencer Horn MD Unavailable Miscellaneous, Not In File Unavailable Unava ilable Encounters Date Type Department Care Team Description 04/06/2025 Telephone [facility] Cardiology [address] [facility] [address] [place] [address] Spencer Horn MD Chest Pain; Shortness of Breath 03/04/2025 Telephone [facility] Cardiology [address] [facility] [address] [place] [address] Spencer Horn MD Med Refill 03/03/2025 Telephone [facility] Cardiology at [address] [place] [address] Spencer Horn MD Cardiac Rehab 03/02/2025 11:45 AM CDT Office Visit [facility] Cardiology [address] [facility] [address] [place] [phone] Spencer Horn MD Coronary artery disease involving [place] coronary artery of [place] heart with other form of angina pectoris (Primary Dx); S/P CABG x 1; Type 1 diabetes mellitus with other specified complication (HCC); History of DVT (deep vein thrombosis); Chronic anticoagulation; History of tobacco abuse 02/18/2025 Telephone [facility] Cardiology [address] [place] [phone] Spencer Horn MD Med Refill 01/26/2025 Orders Only [facility] Surgery [id number] [place] [address] [place] [address] June Reinoso NP 01/21/2025 10:00 AM CDT Office Visit [facility] Surgery [address] [place] [address] [address] [place] [address] Javier Davis MD Coronary artery disease due to calcified coronary lesion (Primary Dx) from Last 3 Months Allergies Active Allergy Reactions Criticality Noted Date Comments Codeine Hallucinations Medium 08/22/2020 Sulfa (Sulfonamide Antibiotics) Nausea & Vomiting Low 07/27/1980 Medications escitalopram (LEXAPRO) 20 mg tabletIndication s:Anxiety with Depression Take 1 tablet (20 mg total) by mouth every morning 0 Active multivitamin capsuleIndicatio ns:Vitamin Deficiency Prevention Take 1 capsule by mouth daily with lunch Active levothyroxine (SYNTHROID) 137 mcg tabletIndication s:hypothyroidism Take 1 tablet (137 mcg total) by mouth correspondence analyst before breakfast Active estradioL (Estrace) 0.01 % (0.1 mg/gram) vaginal creamIndications :Vaginal atrophy Apply 1/4 applicator (1g) to the vagina 2-3 times per week (such as Friday//Friday) 42.5 g 3 4 Active INSULIN PUMP CARTRIDGE SUBQ Inject under the skin continuous Lispro Active PAIN PUMP, EXTERNAL PHARMACY,Indicat ions:pain by intrathecal route continuous Unsure of med name Active escitalopram (LEXAPRO) 10 mg tabletIndication s:Anxiety with Depression Take 1 tablet (10 mg total) by mouth every morning Takes total of 30 mg QD 4 Active BLOOD-GLUCOSE METER,CONTINUOUS MISCIndications: diabetes Inject under the skin continuous CGM Active cetirizine (ZyrTEC) 10 mg tabletIndication s:Seasonal Allergic Rhinitis Take 1 tablet (10 mg total) by mouth daily as needed for allergies Active insulin lispro (HumaLOG, ADMELOG) 100 unit/mL vial for injectionIndicat ions:type 1 diabetes mellitus Inject under the skin Insulin pump- Pt doesn't know basal rate 4 Active Mitigo, PF, 10 mg/mL solutionIndicati ons:Pain,Back pain 0.15 mL (1.5 mg total) 1500.0 mcg/ml 0 4 Active calcium-vitamin D3-vitamin K 500 mg-200 unit -40 mcg tablet,chewableI ndications:Osteo porosis,Immune support Take 1 tablet/chew tab by mouth nightly Active atorvastatin (LIPITOR) 80 mg tablet Take 1 tablet (80 mg total) by mouth nightly 90 tablet 3 4 Active hydrOXYzine (ATARAX) 25 mg tablet Take 1 tablet (25 mg total) by mouth 2 (two) times a day as needed 5 Active acetaminophen 500 mg capsuleIndicatio ns:Fever,Pain Take 2 capsules (1,000 mg total) by mouth every 6 (six) hours as needed for pain or fever 5 Active clopidogreL (PLAVIX) 75 mg tabletIndication s:Acute Coronary Syndrome,Myocard ial Reinfarction Prevention Take 1 tablet (75 mg total) by mouth daily 90 tablet 5 04/26/20 25 Active carvediloL (COREG) 12.5 mg tabletIndication s:hypertension Take 1 tablet (12.5 mg total) by mouth 2 (two) times a day 180 tablet 3 5 Active losartan (COZAAR) 50 mg tablet Take 1 tablet (50 mg total) by mouth nightly 90 tablet 6 5 Active Xarelto 20 mg tablet Take 1 tablet (20 mg total) by mouth daily with dinner 90 tablet 3 5 Active Active Problems Problem Noted Date Diagnosed Date Coronary artery disease (CAD) excluded 5 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 Postoperative state 09/17/2024 Coronary artery disease 09/01/2024 Gross hematuria 08/11/2024 Hematuria 08/11/2024 History of midurethral sling procedure 4 Voiding dysfunction 07/09/2024 Trochanteric bursitis of right hip 07/08/2024 Presence of intrathecal pump 06/24/2024 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 Lesion of bladder 05/13/2024 Vaginal atrophy 03/15/2024 Acute cystitis with hematuria 03/15/2024 Complication of implanted vaginal mesh, initial encounter 03/15/2024 Pelvic floor dysfunction in female 03/15/2024 Mixed stress and urge urinary incontinence 03/15 Chronic pain syndrome 04/08/2022 Osteopenia of multiple sites 03/30/2021 Right hip pain 01/23/2021 PTSD (post-traumatic stress disorder) 10/18/2020 H/O right coronary artery stent placement 2020 Pure hypercholesterolemia 10/10/2020 Radiculopathy, lumbosacral region 08/22/2020 Lumbosacral spondylosis without myelopathy 08/22 Chronic back pain 08/22/2020 Overview (06/25/2022): Hx fall, back surgery; sees a pain specialist Spinal stenosis of lumbar re gion without neurogenic claudication 08/22/2020 Long-term current use of opiate analgesic 2019 Sacroiliitis 08/22/2020 Postlaminectomy syndrome, lumbar 08/22/2020 Personal history of other venous thrombosis and embolism 11/26/2018 Overview (06/25/2022): LLE, on Xarelto Mixed hyperlipidemia 05/22/2016 Coronary atherosclerosis 02/01/2015 Hypertension 02/01/2015 Hypothyroidism 02/01/2015 Type 1 diabetes mellitus 02/01/2015 Left leg pain 02/12/2012 Lymphadenopathy 09/06/2011 Immunizations Immunization Administration Dates Next Due Influenza, Quadrivalent, Hig h Dose, Preservative Free, Intrr 06/19/2023,07/03/2022,07/24/2020 Influenza, Trivalent, High D ose, Split, Preservative Free, Intramuscular 06/28/2019,09/08/2018 Influenza, Trivalent, IM (MDV) 06/22/2021,2019,07/11/2017 Pfizer SARS-CoV-2 Monovalent Vaccination (12+ Yrs) PURPLE 02/03/2022,07/04/2021,11/09/2020,10/19 Pneumococcal Conjugate Pcv20 02/18/2023 ZOSTER LIVE 1950 ZOSTER Recombinant 08/31/2018,05/26/2018 Social History Tobacco Use Types Packs/Day Years Used Date Smoking Tobacco: Former Cigarettes 1 15 0 09/22/1984 - 09/22/1999 Smokeless Tobacco: Never Tobacco Cessation:Counseling Given: Not Answered Alcohol Use Standard Drinks/Week Comments Never 0 (1 standard drink = 0.6 oz pur e alcohol) [employer] Answer Date Recorded In the past 12 months has [employer], gas, oil, or water [employer] threatened to shut off services in your home? No 12/21/2024 Social Connection and Isolation Panel [NHANES] A nswer Date Recorded In a typical week, how many times do you talk on the phone with family, friends, or neighbors? Once a week 12/21/2024 How often do you get together with friends or re latives? Once a week 12/21/2024 How often do you attend zoroastrianism or buddhism serv ices? Never 12/21/2024 Do you belong to any clubs o r organizations such as zoroastrianism groups, unions, fraternal or athletic groups, or [...] any time in the past 12 m [facility], were you homeless or living in a halfway (including now)? No 12/21/2024 Personal Safety Answer Date Recorded Have you ever been in or are you currently in a harmful physical or emotional relationship or is someone making you feel afraid or unsafe? Denies 12/17/2024 Comments No Sex and Gender Information Value Date Recorded Sex Assigned at Not on file Legal Sex Female 2:53 PM PUPPY TRAINER Gender Identity Not on file Sexual Orientation Not on file Last Filed Vital Signs Vital Sign Reading Time Taken Comments Blood Pressure 136/86 03/02/2025 11:49 AM CDT Pulse 80 03/02/2025 11:49 AM CDT Temperature 37.1 C (98.7 F) 12/23/2024 7:45 AM CDT Respiratory Rate 18 03/02/2025 11:49 AM CDT Oxygen Saturation 95% 03/02/2025 11:49 AM CDT Inhaled Oxygen Concentration - - Weight 89.4 kg (197 lb) 03/02/2025 11:49 AM CDT Height 175.3 cm (5' 9) 03/02/2025 11:49 AM CDT Body Mass Index 29.09 03/02/2025 11:49 AM CDT Plan of Treatment Not on file Medical Devices Implanted Type Area Room Service Waiter/Waitress Device Identifier Shelf Expiration Date Model / Serial / Lot Medtronic Inc Ascenda 4fr .5mm 114cm 86cm 2 Piece Connector Pin Flexible Closed 8780 - [id number] Implanted:Qty: 1 on 07/01/2022 by Deandre Caraballo MD at [facility] N/A: Back Medtronic Inc 06/17/2024 8780 / / [id number] Medtronic Inc Synchromed Ii .78in [place] Filter Mesh Pouch Programmable 8637-20 - [id number] - [id number] Implanted:Qty: 1 on 07/01/2022 by Deandre Caraballo MD at [facility] N/A: Back Med[employer]onic Inc 12/18/2023 8637-20 / [id number] / Medtronic Inc Tyrx 3.35x3in Large Envelope Absorbable Polyarylate Minocycline [id number] - [id number] Implanted:Qty: 1 on 07/01/2022 by Deandre Caraballo MD at [facility] N/A: Back Med[employer]onic Inc 03/30/2023 [id number] / / [id number] [employer] Bulkamid Urethreal Bulking System 77764 - [id number] Implanted:Qty: 1 on 07/29/2024 by Paco Orr MD at [facility] N/A: Urethra [employer] [id number] 10/22/2026 [id number] / / [id number] [employer] Inc Suture [place] Cor Knot Pre Loaded Fastener Device Micro Titanium 0 31426 - [id number] Implanted:Qty: 1 on 12/17/2024 at [facility] N/A: Heart [employer] [id number] / / Medtronic Inc Callaghan 1.5mm 14mm Radiopaque Bulb Tapered Tip Soft 10932 - [id number] Implanted:Qty: 1 on 12/17/2024 by Javier Davis MD at [facility] N/A: Heart Medtronic Inc [id number] / / Explanted Type Area Room Service Waiter/Waitress Device Identifier Shelf Expiration Date Model / Serial / Lot [employer] Inc Suture [place] Cor Knot Pre Loaded Fastener Device Micro Titanium 0 19822 - [id number] Explanted:Qty: 1 on 12/17/2024 at [facility] N/A: Heart [employer] Inc [id number] / / Medtronic Inc Callaghan 1.5mm 14mm Radiopaque Bulb Tapered Tip Soft 36921 - [id number] Explanted:Qty: 1 on 12/17/2024 at [facility] N/A: Heart Medtronic Inc [id number] / / Procedures Procedure Name Priority Date/Time Associated Diagnosis Comments ELECTROCARDIOGRAM REPORT Routine 03/02/2025 Coronary artery disease involving [place] coronary artery of [place] heart with other form of angina pectoris S/P CABG x 1 EGFR Routine 12/27/2024 3:30 PM CDT THYROID FUNCTION CASCADE Add-On 025 2:30 AM CDT HEMOGLOBIN A1C Routine 08/12/2024 5:36 AM PUPPY TRAINER LIPID PANEL STAT 08/11/2024 4:07 PM PUPPY TRAINER from Last 3 Months or Most Recently Relevant to Health Maintenance Results * Electrocardiogram Report (03/02/2025) 03/02/2025 Spencer Horn MD ECG ORDERABLES Final Result * eGFR (12/27/2024 3:30 PM CDT) eGFR >90 >=60 mL/min/1. 73 m2 Comment: Interpretive Data Reference Interval Normal >/= 90 mL/min/1.73m2 Mildly decreased* 60 - 89 mL/min/1.73m2 Mildly to moderately decreased 45 - 59 mL/min/1.73m2 Moderately to severely decreased 30 - 44 mL/min/1.73m2 Severely decreased 15 - 29 mL/min/1.73m2 Kidney Failure < 15 mL/min/1.73m2 *Relative to young adult level Estimated glomerular filtration rate is determined by the 2020 CKD-EPI equation recommended by the National Kidney Foundation (A Unifying Approach to GFR Estimation: Recommendations of the NKF-ASK Task Force on Reassessing the Inclusion of Race in Diagnosing Kidney Disease, JASN 2020). The CKD-EPI equation should not be used for patients with unstable renal function and has not been validated in children and those over 70. Current interpretive data was last reviewed 2021. Testing performed by: [facility], [address] [place] [address]., [address] Blood 12/27/2024 3:30 PM CDT 12/27/2024 5:59 PM CDT Javier Davis MD LAB BLOOD ORDERABLES Final Res ult [facility] [address] [facility] Department of Laboratories [place], [place] [id number] * Thyroid Function Schuyler (12/18/2024 2:30 AM CDT) TSH 0.89 0.30 - 4.20 mcIUnit/mL Blood 12/18/2024 2:30 AM CDT 12/18/2024 8:28 AM CDT Vielka Crane NP LAB BLOOD ORDERABL ES Final Result [facility] [address] Department [place] [address] * (ABNORMAL) Hemoglobin A1c (08/12/2024 5:36 AM PUPPY TRAINER) Hgb A1C 8.0(H) 4.0 - 5.6 % Estimated Average Glucose 183 mg/dL [facility] Comment: The ADA recommends reporting an estimated Average Glucose (eAG) with all Hemoglobin A1c results using the equation derived from a study of 507 normal and diabetic adults. Minority populations were underrepresented and children were not included. (Diabetes Care 2020; 43(S1): S66-S76). The eAG is not equivalent to a fasting glucose. Blood 08/12/2024 5:36 AM PUPPY TRAINER 08/12/2024 6:02 AM PUPPY TRAINER us Kyra Emmanuel MD LAB BLOOD ORDERABLES Kaylin frederick Result [facility] One [facility] Department [place] [address] * Lipid panel (08/11/2024 4:07 PM PUPPY TRAINER) Cholesterol 146 30 - 199 mg/dL Comment: Interpretive Data Ages < or = 19 years Acceptable: <170 mg/dL Borderline high: 170-199 mg/dL High: >or= 200 mg/dL Ages > or = 20 years Desirable: <200 mg/dL Borderline high: 200-239 mg/dL High: >or= 240 mg/dL Literature References: 1. Expert Panel on Integrated Guidelines for Cardiovascular Health and Risk Reduction in Children and Adolescents. Pediatrics 2011;128:S213 2. NCEP Expert Panel. Circulation 2004;110:227 Current Interpretive Data was last revised on 2018. Triglycerides 97 <=149 mg/dL [facility] Comment: Interpretive Data Ages < or = 9 years Acceptable: <75 mg/dL Borderline high: 75-99 mg/dL High: >or= 100 mg/dL Ages 10 to 20 years Acceptable: <90 mg/dL Borderline high: 90-129 mg/dL High: >or= 130 mg/dL Ages > or = 20 years Desirable: <150 mg/dL Borderline high: 150-199 mg/dL High: 200-499 mg/dL Very high: >or= 499 mg/dL Literature References: 1. Expert Panel on Integrated Guidelines for Cardiovascular Health and Risk Reduction in Children and Adolescents. Pediatrics 2011;128:S213 2. NCEP Expert Panel. Circulation 2004;110:227 Current Interpretive Data was last revised on 2018. HDL 68 >=40 mg/dL [facility] Comment: Interpretive Data Ages < or = 19 years Acceptable: >45 mg/dL Borderline low: 40-45 mg/dL Low: <40 mg/dL Ages > or = 20 years Desirable: >or= 60 mg/dL Low: <40 mg/dL Literature References: 1. Expert Panel on Integrated Guidelines for Cardiovascular Health and Risk Reduction in Children and Adolescents. Pediatrics 2011;128:S213 2. NCEP Expert Panel. Circulation 2004;110:227 Current Interpretive Data was last revised on 2018. LDL, calculated 60 <=129 mg/dL [facility] Comment: Interpretive Data Ages < or = 19 years Acceptable: <110 mg/dL Borderline high: 110-129 mg/dL High: >or= 130 mg/dL Ages > or = 20 years Optimal: <100 mg/dL Near optimal: 100-129 mg/dL Borderline high: 130-159 mg/dL High: >160 mg/dL Calculated using the Emeterio LDL-C estimating equation. This equation was implemented on 2024. Prior to this date LDL-C was estimated using the Friedewald equation. Literature References: 1. Expert Panel on Integrated Guidelines for Cardiovascular Health and Risk Reduction in Children and Adolescents. Pediatrics 2011;128:S213 2. NCEP Expert Panel. Circulation 2004;110:227 3. Emeterio Pelaez et al. ANNA Cardiol. 2020 January 20;5(5):540-548. doi: 10.1001/jamacardio.2020.0013 Current Interpretive Data was last revised on 2024. Non-HDL Cholesterol 78 mg/dL [facility] Comment: Interpretive Data Ages < or = 19 years Acceptable: <120 mg/dL Borderline high: 120-144 mg/dL High: >145 mg/dL Ages > or = 20 years When triglycerides are >200 mg/dL, Non-HDL cholesterol is a secondary target of therapy with treatment goals that are 30 mg/dL greater than the LDL cholesterol target. Literature References: 1. Expert Panel on Integrated Guidelines for Cardiovascular Health and Risk Reduction in Children and Adolescents. Pediatrics 2011;128:S213 2. NCEP Expert Panel. Circulation 2004;110:227 Current Interpretive Data was last revised on 2018. Chol/HDL ratio 2 [facility] Blood 08/11/2024 4:07 PM PUPPY TRAINER 08/11/2024 4:33 PM PUPPY TRAINER us Kyra Emmanuel MD LAB BLOOD ORDERABLES Kaylin mack Result [facility] Department [place] [address] from Last 3 Months or Most Recently Relevant to Health Maintenance Insurance MEDICARE [employer] MEDICARE FOR LIFE MEDICARE FOR LIFE Advance Directives For more information, please contact: [phone] * Full Code (Latest Code Status on File) Date Activated Date Inactivated Comments 12/17/2024 2:29 PM 12/23/2024 3:37 PM Care Teams Brick Maker Relationship Specialty [place] [address] [place] [address] PCP - General Family Medicine 06/23/24 Paco Orr MD [address] DIV OBGYN PELVIC MED/RECONSTRUCT SURG, [address] [place] [address] Referring Physician Urogynecology 08/30/24 Chris Goode MD [address] DIV IM BONE MARROW TRANSPLANT, 5TH, [address] [place] [address] Consulting Physician Medical Oncology 08/30/24 Celestine Garcia MITTEN STITCHER [address] [facility] [address] [place] [address] Nurse Practitioner Pain Management 08/31/24 [place] [address] [facility] [address] [place] [address] Consulting Physician Pain Management 11/24/24 [place] [address] [address] [facility] [address] [place] [address] Surgeon Cardiothoracic Surgery 12/23/24 Spencer Horn MD [address], [address] [place] [address] Consulting Physician Cardiology 12/23/24 Miscellaneous, Not In File 12/23/24
--- OUTSIDE RECORDS SUMMARY | 2025-04-06 17:41 | XMS_ITS | Encounter Summary ---
Author Organization [facility] Healthcare Address [address] [place] [address] Care Team Providers Care Leather Production Machine Operator Name Role Phone Jacquelyn Mejia MD Primary Care Provider Paco Orr MD Unavailable Chris Goode MD Unavailable Celestine Garcia NP Unavailable Deandre Caraballo MD Unavailable Javier Davis MD Unavailable [phone] Spencer Horn MD Unavailable Miscellaneous, Not In File Unavailable Unava ilable Encounter Details Date Type Department Care Team (Late st Contact Info) Description 12/28/2024 [facility] Post Discharge Follow up phone call [facility] [address] [place] [address] Kiya Carlisle Social History Tobacco Use Types Packs/Day Years Used Date Smoking Tobacco: Former Cigarettes 1 15 0 09/22/1984 - 09/22/1999 Smokeless Tobacco: Never Alcohol Use Standard Drinks/Week Comments Never 0 (1 standard drink = 0.6 oz pur e alcohol) [facility] Utilities Answer Date Recorded In the past [...] week 12/21/2024 How often do you attend caodaism or spiritism serv ices? Never 12/21/2024 Do you belong to any clubs o r organizations such as caodaism groups, unions, fraternal or athletic groups, or [...] any time in the past 12 m [facility], were you homeless or [...] on file Legal Sex Female 2:53 PM FINE WIRE DRAWER Gender Identity Not on file Sexual Orientation Not on file documented as of this encounter Plan of Treatment Not on file documented as of this encounter Visit Diagnoses Not on filedocumented in this encounter Care Teams Leather Production Machine Operator Relationship Specialty [place] [address] [place] [address] PCP - General Family Medicine 06/23/24 Paco Orr MD [address] DIV OBGYN PELVIC MED/RECONSTRUCT SURG, [address] [place] [address] Referring Physician Urogynecology 08/30/24 Chris Goode MD [address] DIV IM BONE MARROW TRANSPLANT, , [address] [place] [address] Consulting Physician Medical Oncology 08/30/24 Celestine Garcia PRINCIPAL ENGINEER [address] [place] [address] Nurse Practitioner Pain Management 08/31/24 [place] [address] [address] [place] [address] Consulting Physician Pain Management 11/24/24 [place] [address] [address] [facility] [address] [place] [address] Surgeon Cardiothoracic Surgery 12/23/24 Spencer Horn MD [address] [facility] C [address] [facility] C, [address] [place] [address] Consulting Physician Cardiology 12/23/24 Miscellaneous, Not In File 12/23/24 documented as of this encounter
--- OUTSIDE RECORDS SUMMARY | 2025-04-06 17:41 | XMS_ITS | Encounter Summary ---
Author Organization [facility] Address [address] [place] [address] Care Team Providers Care Transportation Inspector Name Role Phone Jacquelyn Mejia MD Primary Care Provider Encounter Details Date Type Department Care Team (Late Contact Info) Description 10/24/2021 [facility] Primary Care [address] [address] [place] [address] Beatrice Aguilar MD NO ADDRESS ON FILE Social History [...] have Coronavirus / COVID-19? No / Unsure 10/09/2021 11:19 AM DIRECTOR OF GRANTS documented as of this encounter Plan of Treatment Upcoming Encounters Date Type Department Care Team (Late Contact Info) Description 04/14/2025 12:00 PM CDT Office Visit [facility] Endocrinology [address] [place] [address] Dada Pardo MD [address] [place] [address] 07/25/2025 2:15 PM DIRECTOR OF GRANTS Office Visit [facility] Endocrinology [address] [place] [address] Dada Pardo MD [address] [place] [address] documented as of this encounter Visit Diagnoses Not on filedocumented in this encounter Additional Health Concerns Assessment Noted Time PHQ-9 Depression Total Score: 2 10/12/19 21 2:00 PM DIRECTOR OF GRANTS documented as of this encounter Care Teams Transportation Inspector Relationship Specialty Start [place] [address] [place] [address] PCP - General Family Practice 12/01/24 documented as of this encounter
--- OUTSIDE RECORDS SUMMARY | 2025-04-06 17:41 | XMS_ITS | Clinical Summary ---
Author Organization [facility] Address [address] [place] [address] Care Team Providers Care Apple Thinner Name Role Phone Jacquelyn Mejia MD Primary Care Provider [phone] Paco Orr MD Unavailable Chris Goode MD Unavailable Celestine Garcia NP Unavailable [phone] Deandre Caraballo MD Unavailable [phone] Javier Davis MD Unavailable [phone] Spencer Horn MD Unavailable Miscellaneous, Not In File Unavailable Unava ilable Allergies Active Allergy Reactions Criticality Noted Date [...] 1 tablet (137 mcg total) by mouth inspection clerk before breakfast Active estradioL (Estrace) 0.01 % (0.1 mg/gram) vaginal creamIndications :Vaginal atrophy Apply 1/4 applicator (1g) to the vagina 2-3 times per week (such as Friday/ y/Friday) 42.5 g 3 4 Active INSULIN PUMP [...] Hematuria 08/11/2024 History of midurethral sling procedure Voiding dysfunction 07/09/2024 Trochanteric bursitis of right [...] venous thrombosis and embolism 11/26/2018 Overview (06/25/2022): renetta CAO Xarelto Mixed hyperlipidemia 05/22/2016 Coronary atherosclerosis 02/01/2015 Hypertension 02/01/2015 Hypothyroidism 02/01/2015 Type 1 diabetes mellitus 02/01/2015 Left leg pain 02/12/2012 Lymphadenopathy 09/06/2011 Encounters Date Type Department Care Team Description 04/06/2025 Telephone [facility] Cardiology [address] [place] [address] [place] [phone] Spencer Horn MD Chest Pain; Shortness of Breath 03/04/2025 Telephone [facility] Cardiology [address] [place] [address] [address] [place] [phone] Spencer Horn MD Med Refill 03/03/2025 Telephone [facility] Cardiology at [address] [place] [phone] Spencer Horn MD Cardiac Rehab 03/02/2025 11:45 AM CDT Office Visit [facility] Cardiology [address] [place] [address] [address] [place] [phone] Spencer Horn MD Coronary artery disease involving grindstone coronary artery of grindstone heart with other form of angina pectoris (Primary Dx); S/P CABG x 1; Type 1 diabetes mellitus with other specified complication (HCC); History of DVT (deep vein thrombosis); Chronic anticoagulation; History of tobacco abuse 02/18/2025 Telephone [facility] Cardiology [address] [place] [address] [address] [place] [phone] Spencer Horn MD Med Refill 01/26/[address] [facility] Surgery [id number] [place] [address] [address] [place] [address] June Reinoso NP 01/21/2025 10:00 AM CDT Office Visit [facility] Surgery [address] [place] [address] [address] [place] [address] Javier Davis MD Coronary artery disease due to calcified coronary lesion (Primary Dx) from Last 3 Months Immunizations Immunization Administration Dates Next Due Influenza, Quadrivalent, Hig h Dose, Preservative Free, Intrr 06/19/2023,07/03/2022,07/24/2020 Influenza, Trivalent, High D ose, Split, Preservative Free, Intramuscular 06/28/2019,09/08/2018 Influenza, Trivalent, IM (MDV) 06/22/2021,2019,07/11/2017 Pfizer SARS-CoV-2 Monovalent Vaccination (12+ Yrs) PURPLE 02/03/2022,07/04/2021,11/09/2020,10/19 Pneumococcal Conjugate Pcv20 02/18/2023 ZOSTER LIVE 1952 ZOSTER Recombinant 08/31/2018,05/26/2018 Surgical History Surgery Date Site/Laterality Comments LAMINECTOMY 09/22/1992 - 09/21/1993 HYSTERECTOMY 09/22/1987 - 09/21/1988 SPINAL FUSION 09/22/2008 - 09/21/2009 LUMBAR DISCECTOMY REDUCTION MAMMAPLASTY 09/22/1990 - 09/21/1991 Bilateral CHOLECYSTECTOMY CATARACT EXTRACTION W/ INTRAOCULAR LENS IMPLANT 09/22/2009 - 09/21/2010 Bilateral INFUSION PUMP IMPLANTATION 07/01/2022 Pain pump CARDIAC STENT PLACEMENT 09/22/2012 - 09/21/2013 COLONOSCOPY 09/22/2018 - 09/21/2019 POLYPECTOMY 07/27/2019 INCONTINENCE SURGERY 09/22/1998 - 09/21/1999 ANTERIOR VAGINAL REPAIR 07/29/2024 Transvaginal mesh excision with anterior vaginal wall repair INJECTION URETHRAL 07/29/2024 bulkamid BLADDER FULGURATION 07/29/2024 Bladder biopsy (x2) with fulguration CYSTOURETHROSCOPY 07/29/2024 BLADDER SUSPENSION CYSTOSCOPY CATARACT EXTRACTION Medical History Medical History Date Comments Diabetes mellitus (HCC) Hypertension Low back pain Thyroid disease DVT (deep venous thrombosis) (HCC) Spinal stenosis Myocardial infarction (HCC) Seasonal allergies Hypothyroidism Diabetes mellitus type I (HCC) Osteoporosis February2023 osteopenia Depression Urinary incontinence Chronic pain disorder Coronary artery disease invo lving grindstone coronary artery of grindstone heart with other form of angina pectoris H/O right coronary artery stent placement Delayed emergence from general anesthesia Acute cystitis with hematuria Mixed stress and urge urinary incontinence Intrinsic urethral sphincter deficiency Lesion of bladder History of midurethral sling procedure Gross hematuria PTSD (post-traumatic stress disorder) Chronic back pain Postlaminectomy syndrome, lumbar Osteopenia Spinal stenosis of lumbar re gion without neurogenic claudication Presence of intrathecal pump sol n pump Lymphadenopathy Hyperlipidemia SOB (shortness of breath) on exertion Anxiety Cataract Insulin pump in place Family History Medical History Relation Name Comments Diabetes Father Daddy Arthritis Mother Mama Depression Mother Mama Hypertension Mother Mama Kidney disease Mother Mama Miscarriages / Stillbirths Mother Mama Parkinsonism Sister Relation Name Status Comments Brother Alive Father Daddy Maternal Grandfather Maternal Grandmother Mother Mama Paternal Grandfather Paternal Grandmother Sister Alive Social History Tobacco Use Types Packs/Day Years Used Date Smoking Tobacco: Former Cigarettes 1 15 0 09/22/1984 - 09/22/1999 Smokeless Tobacco: Never Tobacco Cessation:Counseling Given: Not Answered Alcohol Use Standard Drinks/Week Comments Never 0 (1 standard drink = 0.6 oz pur e alcohol) [facility] [employer] Answer Date Recorded In the past 12 months has e electric, gas, oil, or water company [...] week 12/21/2024 How often do you attend methodist or faith serv ices? Never 12/21/2024 Do you belong to any clubs o r organizations such as methodist groups, unions, fraternal or athletic groups, or [...] any time in the past 12 m [facility], were you homeless or living in a chcf (including now)? No 12/21/2024 Personal Safety Answer Date Recorded Have you ever been in or are you currently in a harmful physical or emotional relationship or is someone making you feel afraid or unsafe? Denies 12/17/2024 Comments No Sex and Gender Information Value Date Recorded Sex Assigned at Not on file Legal Sex Female 2:53 PM HARBOUR MASTER Gender Identity Not on file Sexual Orientation Not on file Obstetrics History Last Filed Vital Signs Vital Sign Reading [...] 03/02/2025 11:49 AM CDT Plan of Treatment Health Maintenance Due Date Last Done Comments Albumin Creatinine Ratio, Urine 1950 Colon Cancer Screening-Colonoscopy 1950 Depression Screening 1950 Foot Exam 1950 Hepatitis C Screening 1950 Dilated Eye Exam 1962 DTaP/Tdap/Td Vaccine (1 - Tdap) 11/28/1963 Hepatitis B Screening 1970 Well Visit 65+ 2017 Breast Cancer Screening-Mammogram 12/03/2022 12/03/2021, 12/03/2021, 09/06/2020, Additional history exists Osteoporosis Screening-Bone Density Scan 12/04/2023 12/03/2021, 12/03/2021, 07/20/2019, Additional history exists Covid-19 Vaccine (2023-2 5 season) 2024 07/05/2022, 02/06/2022, 02/03/2022, Additional history exists Influenza Vaccine (#1) 2025 , 07/03/2022, 06/22/2021, Additional history exists Hemoglobin A1C 07/01/2025 12/30/2024, 02/2024, 08/12/2024, Additional history exists Lipid Panel 08/11/2025 08/11/2024, 10/2023, 07/30/2023, Additional history exists TSH Level 12/18/2025 12/18/2024, 0 12/2020, 10/08/2010 Fall Risk Assessment 12/23/2025 12/23/2024 eGFR 12/27/2025 12/27/2024, 0 11/2024, 12/22/2024, Additional history exists Zoster Vaccine Completed 08/31/2018, 12/2017, 1950 Pneumococcal vaccine 65+ Completed 02/18/2023 Medical Devices Implanted Type Area Awning Craftsperson Device Identifier Shelf Expiration Date Model / Serial / Lot [employer] Inc Ascenda 4fr .5mm 114cm 86cm 2 Piece Connector Pin Flexible Closed 8780 - [id number] Implanted:Qty: 1 on 07/01/2022 by Deandre Caraballo MD at [facility] N/A: Back Medtronic Inc 06/17/2024 8780 / / [id number] Medtronic Inc Synchromed Ii .78in [place] Filter Mesh Pouch Programmable 8637-20 - [id number] - [id number] Implanted:Qty: 1 on 07/01/2022 by Deandre Caraballo MD at [facility] N/A: Back Medtronic Inc 12/18/2023 8637-20 / [id number] / Medtronic Inc Tyrx 3.35x3in Large Envelope Absorbable Polyarylate Minocycline [id number] - [id number] Implanted:Qty: 1 on 07/01/2022 by Deandre Caraballo MD at [facility] N/A: Back Medtronic Inc 03/30/2023 [id number] / / [id number] [employer]on[employer] Modulation [employer] Bulkamid Urethreal Bulking System 50255 - [id number] Implanted:Qty: 1 on 07/29/2024 by Paco Orr MD at [facility] N/A: Urethra [employer] [id number] 10/22/2026 [id number] / / [id number] Lsi Solutions Inc Suture [place] Cor Knot Pre Loaded Fastener Device Micro Titanium 0 75499 - [id number] Implanted:Qty: 1 on 12/17/2024 at [facility] N/A: Heart [employer]si Solutions Inc 46864 / / Medtronic Inc [place] 1.5mm 14mm Radiopaque Bulb Tapered Tip Soft 51351 - [id number] Implanted:Qty: 1 on 12/17/2024 by Javier Davis MD at [facility] N/A: Heart Medtronic Inc 47048 / / Explanted Type Area Awning Craftsperson Device Identifier Shelf Expiration Date Model / Serial / Lot Lsi Solutions Inc Suture [place] Cor Knot Pre Loaded Fastener Device Micro Titanium 0 63047 - [id number] Explanted:Qty: 1 on 12/17/2024 at [facility] N/A: Heart [employer] Inc [id number] / / Medtronic Inc [place] 1.5mm 14mm Radiopaque Bulb Tapered Tip Soft 89848 - [id number] Explanted:Qty: 1 on 12/17/2024 at [facility] N/A: Heart Medtronic Inc 58776 / / Procedures Procedure Name Priority Date/Time Associated Diagnosis Comments ELECTROCARDIOGRAM REPORT Routine 03/02/2025 Coronary artery disease involving grindstone coronary artery of grindstone heart with other form of angina pectoris S/P CABG x 1 EGFR Routine 12/27/2024 3:30 PM CDT THYROID FUNCTION CASCADE Add-On 025 2:30 AM CDT HEMOGLOBIN A1C Routine 08/12/2024 5:36 AM HARBOUR MASTER LIPID PANEL STAT 08/11/2024 4:07 PM HARBOUR MASTER from Last 3 Months or Most Recently [...] reviewed 2021. Testing performed by: [facility], [address] [place] [address], [place]., [address] Blood 12/27/2024 3:30 PM CDT 12/27/2024 5:59 PM CDT us Javier Davis MD LAB BLOOD ORDERABLES Final Res ult [facility]LE[facility]E [address] [facility] [place] [address] * Thyroid Function [place] (12/18/2024 2:30 AM CDT) TSH 0.89 0.30 - 4.20 mcIUnit/mL Blood 12/18/2024 2:30 AM CDT 12/18/2024 8:28 AM CDT Vielka Crane NP LAB BLOOD ORDERABL ES Final Result Performing Organization Address [facility] Co de Phone Number YESENIA [address] [facility] Department [place] [address] * (ABNORMAL) Hemoglobin A1c (08/12/2024 5:36 AM HARBOUR MASTER) Hgb A1C 8.0(H) 4.0 - 5.6 % Estimated Average Glucose 183 mg/dL [facility] Comment: The ADA recommends reporting an estimated Average Glucose (eAG) with all Hemoglobin A1c results using the equation derived from a study of 507 normal and diabetic adults. Minority populations were underrepresented and children were not included. (Diabetes Care 2020; 43(S1): S66-S76). The eAG is not equivalent to a fasting glucose. Blood 08/12/2024 5:36 AM HARBOUR MASTER 08/12/2024 6:02 AM HARBOUR MASTER Kyra Emmanuel MD LAB BLOOD ORDERABLES Kaylin l Result [facility] Department [place] [address] * Lipid panel (08/11/2024 4:07 PM HARBOUR MASTER) Cholesterol 146 30 - 199 mg/dL Comment: [...] revised on 2018. Triglycerides 97 <=149 mg/dL [facility] Comment: Interpretive Data Ages < or = [...] revised on 2018. HDL 68 >=40 mg/dL [facility] Comment: Interpretive Data Ages < or = [...] on 2018. LDL, calculated 60 <=129 mg/dL [facility] Comment: Interpretive Data Ages < or = [...] revised on 2024. Non-HDL Cholesterol 78 mg/dL [facility] Comment: Interpretive Data Ages < or = [...] last revised on 2018. Chol/HDL ratio 2 [facility] Blood 08/11/2024 4:07 PM HARBOUR MASTER 08/11/2024 4:33 PM HARBOUR MASTER us Kyra Emmanuel MD LAB BLOOD ORDERABLES Kaylin mack Result [facility] Department [place] [address] from Last 3 Months or Most Recently Relevant to Health Maintenance Insurance MEDICARE FOR LIFE MEDICARE FOR LIFE MEDICARE [facility] Advance Directives For more information, please contact: [phone] * Full Code (Latest Code Status on File) Date Activated Date Inactivated Comments 12/17/2024 2:29 PM 12/23/2024 3:37 PM Care Teams Apple Thinner Relationship Specialty [place] [address] [place] [address] PCP - General Family Medicine 06/23/24 Paco Orr MD [address] DIV OBGYN PELVIC MED/RECONSTRUCT SURG, [address] [place] [address] Referring Physician Urogynecology 08/30/24 Chris Goode MD [address] [place] [address] DIV IM BONE MARROW TRANSPLANT, 5TH, [address] [address] Consulting Physician Medical Oncology 08/30/24 Celestine Garcia [employer] SUPERVISOR [address] [place] [address] Nurse Practitioner Pain Management 08/31/24 [place] [address] [facility] [address] [place] [address] Consulting Physician Pain Management 11/24/24 [place] [address] [facility] [address] [place] [address] Surgeon Cardiothoracic Surgery 12/23/24 Spencer Horn MD [address] [facility] C, [address] [place] [address] Consulting Physician Cardiology 12/23/24 Miscellaneous, Not In File 12/23/24
--- OUTSIDE RECORDS SUMMARY | 2025-04-06 17:41 | XMS_ITS | Encounter Summary ---
Author Organization [facility] Healthcare Address [address] [place] [address] Care Team Providers Care Vegetable Canner Name Role Phone Jacquelyn Mejia MD Primary Care Provider Paco Orr MD Unavailable Chris Goode MD Unavailable Celestine Garcia NP Unavailable Deandre Caraballo MD Unavailable Javier Davis MD Unavailable [phone] Spencer Horn MD Unavailable Miscellaneous, Not In File Unavailable Unava ilable Encounter Details Date Type Department Care Team (Late st Contact Info) Description 08/12/2024 Documentation [facility] Case Management [address] [place] [phone] Tatyana Rosas RN Social History Tobacco Use Types Packs/Day Years Used Date Smoking Tobacco: Former Cigarettes 1 15 0 09/22/1984 - 09/22/1999 Smokeless Tobacco: Never Alcohol Use Standard Drinks/Week Comments Never 0 (1 standard drink = 0.6 oz pur e alcohol) AUDIT-C Answer Date Recorded Q1: How often do you have a drink containing alcohol? Never 08/12/2024 Q2: How many drinks containi ng alcohol do you have on a typical day when you are drinking? Patient does not drink Q3: How often do you have si x or more drinks on one occasion? Never 08/12/2024 Personal Safety Answer Date Recorded Have you ever been in or are you currently in a harmful physical or emotional relationship or is someone making you feel afraid or unsafe? Denies 08/11/2024 Comments No Sex and Gender Information Value Date Recorded Sex Assigned at Not on file Legal Sex Female 2:53 PM SENIOR ACCOUNTS PAYABLE SPECIALIST Gender Identity Not on file Sexual Orientation Not on file documented as of this encounter Functional Status * Audit-C Score Answer Date of Assessment Author 0 08/12/2024 7:32 AM Tara Reyes RN * Question Answer Date of Assessment Author Q1: How often do you have a drink containing alcohol? Never 08/12/2024 7:32 AM Tara Reyes RN Q2: How many drinks containing alcohol do you have on a typical day when you are drinking? Patient does not drink 08/12/2024 7:32 AM Tara Reyes RN Q3: How often do you have six or more drinks on one occasion? Never 08/12/2024 7:32 AM Tara Reyes RN documented as of this encounter Miscellaneous Notes * Plan of Care - Tatyana Rosas RN - 08/12/2024 9:40 AM CST Pt is the OR unable to interview, will follow postop. OR ACCOUNTS PAYABLE SPECIALIST documented in this encounter Plan of Treatment Not on file documented as of this encounter Visit Diagnoses Not on filedocumented in this encounter Care Teams Vegetable Canner Relationship Specialty Start [place] [address] [place] [address] PCP - General Family Medicine 06/23/24 Paco Orr MD [address] DIV OBGYN PELVIC MED/RECONSTRUCT SURG, [address] [place] [address] Referring Physician Urogynecology 08/30/24 Chris Goode MD [address] DIV IM BONE MARROW TRANSPLANT, 5TH, [address] [address] Consulting Physician Medical Oncology 08/30/24 Celestine Garcia SAND DIGGER [address] [place] [address] Nurse Practitioner Pain Management 08/31/24 [place] [address] [facility] [address] [place] [address] Consulting Physician Pain Management 11/24/24 [place] [address] [facility] [address] [place] [address] Surgeon Cardiothoracic Surgery 12/23/24 Spencer Horn MD [address] [facility], [address] [place] [address] Consulting Physician Cardiology 12/23/24 Miscellaneous, Not In File 12/23/24 documented as of this encounter
[2025-04-06 17:52] VITALS: BP 191/98; PULSE 74; RESP 16; TEMP 36.3; O2SAT 97
--- NOTE | 2025-04-06 17:56 | ECG_ITS ---
Test Date: 2025-04-06 18:01:29 Measurements Intervals [place] Rate: 64 P: 28 ME: 184 QRS: 0 QRSD: 97 T: 81 QT: 416 QTc: 431 Interpretive Statements SINUS RHYTHM POSSIBLE ANTERIOR MYOCARDIAL INFARCTION , OF INDETERMINATE AGE Electronically Signed On 04-06-2025 23:31:06 CDT by Spencer Horn D.O
[2025-04-06 19:47] VITALS: BP 186/80; PULSE 68; RESP 16; O2SAT 100
--- NOTE | 2025-04-06 20:02 | ECG_ITS ---
Test Date: 2025-04-06 20:13:49 Measurements Intervals [place] Rate: 65 P: 25 AK: 186 QRS: 8 QRSD: 102 T: 76 QT: 426 QTc: 443 Interpretive Statements SINUS RHYTHM NONSPECIFIC ST & T-WAVE ABNORMALITY Electronically Signed On 04-06-2025 23:33:30 CDT by Spencer Horn D.O
[2025-04-06 20:27] LABS: Hematocrit 36.1 % (37.0-47.0); Hemoglobin 12.0 g/dL (12.0-15.0); Immature Granulocyte Percent A 0.2 % (0-0.5); Lymphocytes Absolute Auto 1.10 K/mm3 (0.9-3.2); Mean Corpuscular HGB Conc 33.2 g/dl (32-36); Mean Corpuscular Hemoglobin 29.9 pg (26-34); Mean Corpuscular Volume 89.8 fl (80-100); Nucleated Red Blood Cells Absolute Auto 0.000 K/mm3 (0.0-0.012); Nucleated Red Blood Cells Perc 0.0 % (0.0-0.2); Platelet Count Result 301 k/mm3 (150-375); Red Blood Count 4.02 M/mm3 (4.2-5.4); White Blood Count 6.7 K/mm3 (4.5-10.0)
[2025-04-06 20:38] LABS: Alanine Aminotransferase 19 U/L (6-35); Albumin Level 4.0 g/dL (3.5-5.1); Alkaline Phosphatase 78 U/L (38-126); Anion Gap 6 mmol/L (4-12); Aspartate Amino Transferase 40 U/L (14-36); Bilirubin,Total 0.3 mg/dL (0.2-1.3); Blood Urea Nitrogen 9 mg/dL (7-17); Calcium 9.2 mg/dL (8.4-10.2); Carbon Dioxide 28 mmol/L (22-30); Chloride 99 mmol/L (98-107); Estimated CRCL calculation 67 ml/min; Estimated Glomerular Filt Rate > 60; Glucose 112 mg/dL (65-110); INR 1.6; Lipase 51 U/L (23-300); Potassium 3.5 mmol/L (3.4-5.0); Prothrombin Time 19.1 Seconds (11.1-14.7); Sodium 133 mmol/L (137-145); Total Protein 7.0 g/dL (6.3-8.2)
[2025-04-06 20:39] LABS: Partial Thromboplastin Time 41.2 Seconds (22.3-36.8)
[2025-04-06 20:50] LABS: Troponin I < 0.012 ng/mL (0.000-0.034)
--- NOTE | 2025-04-06 20:52 | ED.WEAKNESS ---
HPI - Weakness General Chief complaint: Weakness Stated complaint: WEAKNESS Time Seen by Provider: 04/06/25 19:50 History of Present Illness HPI Narrative: 74-year-old female with a past medical history including coronary artery disease status post mid CAB, hypertension, diabetes, chronic anticoagulation with Xarelto and Plavix as well as an IVC filter placed previously. She presents to the emergency department with complaints of generalized weakness and chest pain. She states her chest pain is been going on for several weeks and localized to left-sided chest going into her left armpit and left flank. No back pain, fever, chills. No shortness of breath. She states she has been having generalized weakness for last 3 months worsening over last few weeks as well. She states that she has been getting progressively weak over last few weeks to the point that she now uses her sister's cane to ambulate. She is concerned that she could be dehydrated or having something going on with her cardiac function. Patient states she called her senior tax accountant and was referred to the emergency department given the chest pain. Procedure was in November and is scheduled to start cardiac rehab next week. No abdominal pain, back pain, fever, chills, nausea, vomiting, midline back pain, neck pain, headache or vision changes. No lateralization or focal neuro symptoms. Related Data Home Medications ?Medication ?Instructions ?Recorded ?Confirmed ?Last Taken ?Type Humalog Pen See Rx Instructions .Route .COMPLEX 08/14/21 08/14/21 Unknown History Lantus Solostar U-100 Insulin 40 units subcut DAILY 08/14/21 08/14/21 Unknown History atorvastatin 40 mg tablet 40 mg PO HS 08/14/21 08/14/21 Unknown History carvedilol 12.5 mg tablet 12.5 mg PO Q12H 08/14/21 08/14/21 Unknown History escitalopram oxalate 20 mg tablet 20 mg PO DAILY 08/14/21 08/14/21 Unknown History hydrocodone 10 mg-acetaminophen 1 tablet PO Q6H PRN Pain 08/14/21 08/14/21 Unknown History 325 mg tablet levothyroxine 150 mcg tablet 150 mcg PO DAILY 08/14/21 08/14/21 Unknown History (Synthroid) morphine 15 mg tablet,extended 15 mg PO Q12H 08/14/21 08/14/21 Unknown History release pregabalin 200 mg capsule 200 mg PO HS 08/14/21 08/14/21 Unknown History rivaroxaban 20 mg tablet (Xarelto) 20 mg PO QPM 08/14/21 08/14/21 Unknown History Allergies Allergy/AdvReac Type Severity Reaction Status Date / Time codeine Allergy Hallucinati Verified 03/05/24 12:03 ng Sulfa (Sulfonamide Allergy Unknown Verified 03/05/24 12:03 Antibiotics) Review of Systems Review of Systems: As reviewed above in [facility] Past Medical History Medical History DVT (deep venous thrombosis) Family History Family History Father Diabetes mellitus Mother Glomerular disease Hypertension Sibling Parkinson disease Heart valve replaced Social History Social History Smoking packs per day: 1 Smoking cigarettes per day: 20.0 Years smoked: 25 Smoking pack-years: 25.00 Smoking status: Former smoker Tobacco type: cigarettes Alcohol intake: never Substance use: never Spiritual care concerns: No Exam Narrative: GENERAL: [Well-appearing, well-nourished, and in no acute distress.] HEAD: [Normocephalic, atraumatic.] EYES: [PERRLA and EOMI.] ENT: Nares clear, no rhinorrhea or epistaxis. Mucous membranes moist. NECK: Supple. CHEST: [Clear to auscultation. No respiratory distress.] HEART: [Regular rate and rhythm]. No murmur heard. [Normal peripheral pulses.] ABDOMEN: [Soft, nondistended], [nontender], [No rigidity or guarding] EXTREMITIES: Normal range of motion. [No edema.] SKIN: Warm, dry, no rash. NEURO: [No focal deficits]. Alert and oriented [x3.] PSYCH: [Normal mood and affect.] Course Vital Signs Vital signs: Vital Signs Temperature 36.3 C L 04/06/25 17:52 Pulse Rate 74 04/06/25 17:52 Respiratory Rate 16 04/06/25 17:52 Blood Pressure 191/98 H 04/06/25 17:52 Pulse Oximetry 97 04/06/25 17:52 Oxygen Delivery Room Air 04/06/25 17:52 Temperature 36.3 C L 04/06/25 17:52 Pulse Rate 70 04/06/25 21:25 Respiratory Rate 15 04/06/25 21:25 Blood Pressure 176/84 H 04/06/25 21:25 Pulse Oximetry 99 04/06/25 21:25 Oxygen Delivery Room Air 04/06/25 19:47 MDM - Weakness MDM Narrative Medical decision making narrative: 74-year-old female with a past medical history including coronary artery disease status post mid CAB, hypertension, diabetes, chronic anticoagulation with Xarelto and Plavix as well as an IVC filter placed previously. She presents to the emergency department with complaints of generalized weakness and chest pain. She states her chest pain is been going on for several weeks and localized to left-sided chest going into her left armpit and left flank. No back pain, fever, chills. No shortness of breath. She states she has been having generalized weakness for last 3 months worsening over last few weeks as well. She states that she has been getting progressively weak over last few weeks to the point that she now uses her sister's cane to ambulate. She is concerned that she could be dehydrated or having something going on with her cardiac function. Patient states she called her senior tax accountant and was referred to the emergency department given the chest pain. Procedure was in November and is scheduled to start cardiac rehab next week. No abdominal pain, back pain, fever, chills, nausea, vomiting, midline back pain, neck pain, headache or vision changes. No lateralization or focal neuro symptoms. Patient is otherwise well-appearing not any acute distress, mildly hypertensive with a blood pressure 186/80, no fever, hypoxia tachypnea or tachycardia. She has an unremarkable physical examination with strong symmetric pulses in clear breath sounds, no lateralizing neurological deficits or focal weakness. Patient's complaints sound chronic in nature and been going on for several weeks to months and could be related to a number of things such as dehydration, electrolyte imbalances, cardiac dysfunction the less likely ACS given the chronicity of events. Low suspicion infectious pathology such as urinary tract infection or pneumonia. A broad workup was ordered including chest x-ray, EKG, cardiac markers including troponin, urinalysis, CBC, CMP. Laboratory studies are all reassuring, negative cardiac marker, no leukocytosis or anemia. Normal EKG and chest x-ray. Urinalysis does have evidence of urinary tract infection albeit somewhat contaminated. Patient does noted foul odor to her urine with concentration and she was initially concerned about being dehydrated but has normal BUN creatinine electrolytes. She was given a dose of Keflex here and a prescription for home. She was safe for discharge home at this time with regular primary care provider follow-up. Medical Records Attestation: I reviewed the patient's medical records. Lab Data Attestation: I reviewed the patient's lab results. 04/06/25 20:22 04/06/25 20:22 Labs: Lab Results 04/06/25 04/06/25 04/06/25 Range/Units 19:07 20:22 20:42 WBC 6.7 (4.5-10.0) K/mm3 RBC 4.02 L (4.2-5.4) M/mm3 Hgb 12.0 (12.0-15.0) g/dL Hct 36.1 L (37.0-47.0) % MCV 89.8 (80-100) fl MCH 29.9 (26-34) pg MCHC 33.2 (32-36) g/dl RDW 13.7 (11.5-14.5) % Plt Count 301 (150-375) k/mm3 MPV 9.8 (7.4-10.4) fl Immature Gran % (Auto) 0.2 (0-0.5) % Neut % (Auto) 71.8 (45.5-73.1) % Lymph % (Auto) 16.5 L (18.3-44.2) % Upton % (Auto) 7.5 (2.6-8.5) % Eos % (Auto) 3.2 (0-4.4) % Baso % (Auto) 0.8 (0.2-1.2) % Lymph # (Auto) 1.10 (0.9-3.2) K/mm3 Upton # (Auto) 0.5 (0.1-0.6) K/mm3 Eos # (Auto) 0.2 (0-0.3) K/mm3 Baso # (Auto) 0.1 (0.0-0.1) K/mm3 Abs Immat Gran (auto) 0.01 (0.00-0.031) K/mm3 Absolute Neuts (auto) 4.8 (1.3-6.7) K/mm3 Absolute Nucleated RBC 0.000 (0.0-0.012) K/mm3 Nucleated RBC % 0.0 (0.0-0.2) % PT 19.1 H (11.1-14.7) Seconds INR 1.6 APTT 41.2 H (22.3-36.8) Seconds Sodium 133 L (137-145) mmol/L Potassium 3.5 (3.4-5.0) mmol/L Chloride 99 (98-107) mmol/L Carbon Dioxide 28 (22-30) mmol/L Anion Gap 6 (4-12) mmol/L BUN 9 D (7-17) mg/dL Creatinine 0.68 L (0.7-1.0) mg/dL Estim Creat Clear Calc 67 ml/min Estimated GFR > 60 (59 - ) Glucose 112 H (65-110) mg/dL POC Capillary Glucose 217 H (65-105) mg/dl Calcium 9.2 (8.4-10.2) mg/dL Total Bilirubin 0.3 (0.2-1.3) mg/dL AST 40 H (14-36) U/L ALT 19 (6-35) U/L Alkaline Phosphatase 78 (38-126) U/L Troponin I < 0.012 (0.000-0.034) ng/mL Total Protein 7.0 (6.3-8.2) g/dL Albumin 4.0 (3.5-5.1) g/dL Lipase 51 (23-300) U/L Urine Color Yellow (Yellow) Urine Appearance Cloudy H (Clear) Urine pH 6.0 (5.0-9.0) Ur Specific [place] 1.013 (1.001-1.035) Urine Protein Negative (Negative) mg/dL Urine Glucose (UA) Negative (Negative) mg/dL Urine Ketones Negative (Negative) mg/dL Ur Blood (Man) 3+ H (Negative) Urine Nitrate Negative (Negative) Urine Bilirubin Negative (Negative) Urine Urobilinogen 1.0 (<2.0) mg/dL Leukocyte Esterase Rfl 3+ H (Negative) MAGGI/UL Urine RBC >100 H (0-2) /hpf Urine WBC 21-50 H (0-3) /hpf Ur Squamous Epith Cells Many H (Few) /hpf Urine Bacteria 1+ H /hpf Urine Casts 0-2 07/16 Range/Units 22:35 WBC (4.5-10.0) K/mm3 RBC (4.2-5.4) M/mm3 Hgb (12.0-15.0) g/dL Hct (37.0-47.0) % MCV (80-100) fl MCH (26-34) pg MCHC (32-36) g/dl RDW (11.5-14.5) % Plt Count (150-375) k/mm3 MPV (7.4-10.4) fl Immature Gran % (Auto) (0-0.5) % Neut % (Auto) (45.5-73.1) % Lymph % (Auto) (18.3-44.2) % Upton % (Auto) (2.6-8.5) % Eos % (Auto) (0-4.4) % Baso % (Auto) (0.2-1.2) % Lymph # (Auto) (0.9-3.2) K/mm3 Upton # (Auto) (0.1-0.6) K/mm3 Eos # (Auto) (0-0.3) K/mm3 Baso # (Auto) (0.0-0.1) K/mm3 Abs Immat Gran (auto) (0.00-0.031) K/mm3 Absolute Neuts (auto) (1.3-6.7) K/mm3 Absolute Nucleated RBC (0.0-0.012) K/mm3 Nucleated RBC % (0.0-0.2) % PT (11.1-14.7) Seconds INR APTT (22.3-36.8) Seconds Sodium (137-145) mmol/L Potassium (3.4-5.0) mmol/L Chloride (98-107) mmol/L Carbon Dioxide (22-30) mmol/L Anion Gap (4-12) mmol/L BUN (7-17) mg/dL Creatinine (0.7-1.0) mg/dL Estim Creat Clear Calc ml/min Estimated GFR (59 - ) Glucose (65-110) mg/dL POC Capillary Glucose (65-105) mg/dl Calcium (8.4-10.2) mg/dL Total Bilirubin (0.2-1.3) mg/dL AST (14-36) U/L ALT (6-35) U/L Alkaline Phosphatase (38-126) U/L Troponin I < 0.012 (0.000-0.034) ng/mL Total Protein (6.3-8.2) g/dL Albumin (3.5-5.1) g/dL Lipase (23-300) U/L Urine Color (Yellow) Urine Appearance (Clear) Urine pH (5.0-9.0) Ur Specific [place] (1.001-1.035) Urine Protein (Negative) mg/dL Urine Glucose (UA) (Negative) mg/dL Urine Ketones (Negative) mg/dL Ur Blood (Man) (Negative) Urine Nitrate (Negative) Urine Bilirubin (Negative) Urine Urobilinogen (<2.0) mg/dL Leukocyte Esterase Rfl (Negative) MAGGI/UL Urine RBC (0-2) /hpf Urine WBC (0-3) /hpf Ur Squamous Epith Cells (Few) /hpf Urine Bacteria /hpf Urine Casts Imaging Data Attestation: I personally reviewed and interpreted this imaging study as follows: My impression: Impressions Chest X-Ray 04/06/25 20:35 IMPRESSION: No acute cardiopulmonary process. Discharge Plan Discharge Clinical Impression: Urinary tract infection, Generalized weakness Patient Disposition: Home Condition: Stable Instructions: Antibiotic Form, Urinary Tract Infection in Older Adults (ED) Additional Instructions: Your urinalysis shows a urinary tract infection, your laboratory studies otherwise are all reassuring and appear normal. No signs of other acute urgent or emergent concerning findings. We will treat this with antibiotics for next 5 days. Call your doctor for primary care provider follow-up appointment. Patient Language: [place] Prescriptions: New cephalexin 500 mg capsule 500 mg PO Q12H 5 Days Qty: 10 0RF No Action atorvastatin 40 mg Tablet 40 mg PO HS carvedilol 12.5 mg Tablet 12.5 mg PO Q12H hydrocodone-acetaminophen 10-325 mg Tablet 1 tablet PO Q6H PRN (Reason: Pain) levothyroxine [Synthroid] 150 mcg Tablet 150 mcg PO DAILY morphine 15 mg Tablet Extended Release 15 mg PO Q12H escitalopram oxalate 20 mg Tablet 20 mg PO DAILY Xarelto 20 mg Tablet 20 mg PO QPM Humalog Pen See Rx Instructions .ROUTE .COMPLEX Rx Instructions: SLIDING SCALE Lantus Solostar U-100 Insulin pen injector 40 units subcut DAILY pregabalin 200 mg Capsule 200 mg PO HS cefdinir 300 mg capsule 300 mg PO Q12H 10 Days Qty: 20 0RF Follow-up/Referrals: UNKNOWN,DOCTOR [Primary Care Provider] - Time of Disposition: 01:06
[2025-04-06 20:53] LABS: Add Urine Microscopic? YES; Appearance Urine Cloudy (Clear); Glucose Urine UA Negative (Negative); Leukocyte Esterase Ur 3+ LEU/UL (Negative); Nitrate Urine Negative (Negative); Non Pathogenic Casts 0-2; Specific Grav Ur 1.013 (1.001-1.035)
--- OUTSIDE RECORDS SUMMARY | 2025-04-06 20:55 | XMS_ITS | Encounter Summary ---
Author Organization [facility] Address [address] [place] [address] Care Team Providers Care Box Covering Machine Operator Name Role Phone Jacquelyn Mejia MD Primary Care Provider Reason for Visit * Reason Onset Date Comments Medication Refill 04/01/2025 Encounter Details Date Type Department Care Team (Late st Contact Info) Description 04/01/2025 Refill [facility] Primary Care [address] [place] [address] [place] [id number] [place] [address] Generalized anxiety disorder with panic [...] Dept 12/01/24 Office Visit Deborah Santa NP [facility] Primary [facility] Michelle Showing recent visits within past 540 [...] Dept 12/01/24 Office Visit Deborah Santa NP [facility] Primary [facility] Michelle Showing recent visits within past 540 [...] Description 04/14/2025 12:00 PM CDT Office Visit [facility] Endocrinology [address] [place] [address] Dada Pardo MD [address] [place] [address] 07/25/2025 2:15 PM EXECUTIVE DIRECTOR SHELTERED WORKSHOP Office Visit [facility] Endocrinology [address] [place] [phone] Dada Pardo MD [address] [place] [address] documented as of this encounter Visit Diagnoses Diagnosis Generalized anxiety disorder with panic attacks documented in this encounter Additional Health Concerns Assessment Noted Time PHQ-9 Depression Total Score: 2 12/02/19 25 3:09 PM CDT documented as of this encounter Care Teams Box Covering Machine Operator Relationship Specialty [place] [address] [place] [address] PCP - General Family Practice 12/01/24 documented as of this encounter
--- OUTSIDE RECORDS SUMMARY | 2025-04-06 20:55 | XMS_ITS | Encounter Summary ---
Author Organization [facility] Address [address] [place] [address] Care Team Providers Care Photographic Engineer Name Role Phone Jacquelyn Mejia MD Primary Care Provider [phone] Encounter Details Date Type Department Care Team (Late Contact Info) Description 10/24/2021 [facility] Primary Care [address] [address] [place] [address] Beatrice Aguilar MD NO ADDRESS [...] COVID-19? No / Unsure 10/09/2021 11:19 AM SHUTDOWN COORDINATOR documented as of this encounter Plan of Treatment Upcoming Encounters Date Type Department Care Team (Late Contact Info) Description 04/14/2025 12:00 PM CDT Office Visit [facility] Endocrinology [address] [place] [address] Dada Pardo MD [address] [place] [address] 07/25/2025 2:15 PM SHUTDOWN COORDINATOR Office Visit [facility] Endocrinology [address] [place] [address] Dada Pardo MD [address] [place] [address] documented as of this encounter Visit Diagnoses Not on filedocumented in this encounter Additional Health Concerns Assessment Noted Time PHQ-9 Depression Total Score: 2 10/12/19 21 2:00 PM SHUTDOWN COORDINATOR documented as of this encounter Care Teams Photographic Engineer Relationship Specialty [place] [address] [place] [address] PCP - General Family Practice 12/01/24 documented as of this encounter
--- OUTSIDE RECORDS SUMMARY | 2025-04-06 20:55 | XMS_ITS | Encounter Summary ---
Author Organization [facility] Address [address] [place] [address] Care Team Providers Care Fish Culturist Name Role Phone Jacquelyn Mejia MD Primary [...] Description 04/14/2025 12:00 PM CDT Office Visit [facility] Endocrinology [address] [place] [address] Dada Pardo MD [address] [place] [address] 07/25/2025 2:15 PM INSTRUCTIONAL FACILITATOR Office Visit [facility] Endocrinology [address] [place] [address] Dada Pardo MD [address] [place] [address] documented as of this encounter Visit Diagnoses Not on filedocumented in this encounter Additional Health Concerns Assessment Noted Time PHQ-9 Depression Total Score: 2 12/02/19 25 3:09 PM CDT documented as of this encounter Care Teams Fish Culturist Relationship Specialty [place] [address] [place] [address] PCP - General Family Practice 12/01/24 documented as of this encounter
--- OUTSIDE RECORDS SUMMARY | 2025-04-06 20:55 | XMS_ITS | Encounter Summary ---
Author Organization [facility] Healthcare Address [address] [place] [address] Care Team Providers Care Human Capital Manager Name Role Phone Jacquelyn Mejia MD Primary Care Provider [phone] Paco Orr MD Unavailable Chris Goode MD Unavailable Celestine Garcia NP Unavailable [phone] Deandre Caraballo MD Unavailable [phone] Javier Davis MD Unavailable [phone] Spencer Horn MD Unavailable Miscellaneous, Not In File Unavailable Unava ilable Encounter Details Date Type Department Care Team (Late st Contact Info) Description 12/28/2024 [facility] Post Discharge Follow up phone call [facility] [address] [place] [address] Kiya Carlisle Social History Tobacco Use Types Packs/Day Years Used Date Smoking Tobacco: Former Cigarettes 1 15 0 09/22/1984 - 09/22/1999 Smokeless Tobacco: Never Alcohol Use Standard Drinks/Week Comments Never 0 (1 standard drink = 0.6 oz pur e alcohol) [facility] Utilities Answer Date Recorded In the [...] week 12/21/2024 How often do you attend judaism or baptism serv ices? Never 12/21/2024 Do you belong to any clubs o r organizations such as judaism groups, unions, fraternal or athletic groups, or [...] any time in the past [address] [facility], were you homeless or living in a fpc (including now)? No 12/21/2024 Personal Safety Answer Date Recorded Have you ever been in or are you currently in a harmful physical or emotional relationship or is someone making you feel afraid or unsafe? Denies 12/17/2024 Comments No Sex and Gender Information Value Date Recorded Sex Assigned at Not on file Legal Sex Female 2:53 PM TRANSITION LEAD Gender Identity Not on file Sexual Orientation Not on file documented as of this encounter Plan of Treatment Not on file documented as of this encounter Visit Diagnoses Not on filedocumented in this encounter Care Teams Human Capital Manager Relationship Specialty [place] [address] [place] [address] PCP - General Family Medicine 06/23/24 Paco Orr MD [address] DIV OBGYN PELVIC MED/RECONSTRUCT SURG, [address] [place] [address] Referring Physician Urogynecology 08/30/24 Chris Goode MD [address] DIV IM BONE MARROW TRANSPLANT, [address] [place] [address] Consulting Physician Medical Oncology 08/30/24 Celestine Garcia REGIONAL SALES TRAINER [address] [place] [address] Nurse Practitioner Pain Management 08/31/24 [place] [address] [place] [address] Consulting Physician Pain Management 11/24/24 [place] [address] [email or web address] [address] [place] [address] Surgeon Cardiothoracic Surgery 12/23/24 Spencer Horn MD [address] [facility] [address] [facility] C, [address] [place] [address] Consulting Physician Cardiology 12/23/24 Miscellaneous, Not In File 12/23/24 documented as of this encounter
--- OUTSIDE RECORDS SUMMARY | 2025-04-06 20:55 | XMS_ITS | Encounter Summary ---
Author Organization [facility] Healthcare Address [address] [place] [address] Care Team Providers Care Stamping Operator Name Role Phone Jacquelyn Mejia MD Primary Care Provider Paco Orr MD Unavailable Chris Goode MD Unavailable Celestine Garcia NP Unavailable Deandre Caraballo MD Unavailable Javier Davis MD Unavailable [phone] Spencer Horn MD Unavailable Miscellaneous, Not In File Unavailable Unava ilable Encounter Details Date Type Department Care Team (Late st Contact Info) Description 08/12/2024 Documentation [facility] Case Management [address] [place] [id number] Tatyana Rosas RN Social History Tobacco Use [...] on file Legal Sex Female 2:53 PM ELECTORATE OFFICER Gender Identity Not on file Sexual Orientation [...] OR unable to interview, will follow postop. TORATE OFFICER documented in this encounter Plan of Treatment Not on file documented as of this encounter Visit Diagnoses Not on filedocumented in this encounter Care Teams Stamping Operator Relationship Specialty [place] [address] [place] [address] PCP - General Family Medicine 06/23/24 Paco Orr MD [address] DIV OBGYN PELVIC MED/RECONSTRUCT SURG, [address] [place] [address] Referring Physician Urogynecology 08/30/24 Chris Goode MD [address] DIV IM BONE MARROW TRANSPLANT, 5TH, [address] [place] [address] Consulting Physician Medical Oncology 08/30/24 Celestine Garcia SCALE ASSEMBLY SET UP WORKER [address] [place] [address] Nurse Practitioner Pain Management 08/31/24 [place] [address] [facility] [address] [place] [address] Consulting Physician Pain Management 11/24/24 [place] [address] [facility] [address] [place] [address] Surgeon Cardiothoracic Surgery 12/23/24 Spencer Horn MD [address] [facility], [address] [place] [address] Consulting Physician Cardiology 12/23/24 Miscellaneous, Not In File 12/23/24 documented as of this encounter
--- OUTSIDE RECORDS SUMMARY | 2025-04-06 20:55 | XMS_ITS | Encounter Summary ---
Author Organization [facility] Address [address] [place] [address] Care Team Providers Care Demurrage Man Name Role Phone Jacquelyn Mejia MD Primary Care Provider Encounter Details Date Type Department Care Team (Late st Contact Info) Description 12/31/2021 Refill [facility] Endocrinology [address] [place] [address] Dada Pardo MD [address] [place] [address] Social History Tobacco Use Types [...] Description 04/14/2025 12:00 PM CDT Office Visit [facility] Endocrinology [address] [place] [address] Dada Pardo MD [address] [place] [address] 07/25/2025 2:15 PM SHOE SINGER Office Visit [facility] Endocrinology [address] [place] [address] Dada Pardo MD [address] [place] [address] documented as of this encounter Visit Diagnoses Not on filedocumented in this encounter Additional Health Concerns Assessment Noted Time PHQ-9 Depression Total Score: 2 10/12/19 21 2:00 PM SHOE SINGER documented as of this encounter Care Teams Demurrage Man Relationship Specialty Start [place] [address] [place] [address] PCP - General Family Practice 12/01/24 documented as of this encounter
--- OUTSIDE RECORDS SUMMARY | 2025-04-06 20:55 | XMS_ITS | Clinical Summary ---
Author Organization [facility] Address [address] [place] [address] Care Team Providers Care Motorcoach Operator Name Role Phone Jacquelyn Mejia MD Primary Care Provider Allergies Active Allergy Reactions Criticality Noted Date Comments Codeine Hallucination Medium 08/22/2020 Sulfa (Sulfonamide Antibiotics) Nausea and Vomiting Low 07/27/1980 Medications Multivitamin Capsule Take by mouth daily. Active Acetone, Urine, Test (Ketone Urine Test) Strip Use as directed 100 Strip 08/14/20 21 Active Insulin [place], Disposable, 31 gauge x 3/16 NeedleIndications: Type [...] 200 Tablet 3 02/10/20 24 Active Insulin [place], Disposable, 31 gauge x 3/16 Needle 5 [...] disorder with panic attacks 10/18/2020 CAD in [place] artery 10/10/2020 H/O right coronary artery stent [...] Device Data STL ABSTRACTION Provider, Abstract 04/01/2025 [facility] Care [facility] [place] [address] Jacquelyn Mejia MD Generalized anxiety disorder with panic attacks 04/01/2025 [facility] Endocrinology [address] [facility] [address] [place] [phone] Dada Pardo MD 03/22/2025 External Device Data STL ABSTRACTION Provider, Abstract 03/02/2025 [facility] [place] [address] Jacquelyn Mejia MD History of DVT (deep vein thrombosis) 02/17/2025 Results Follow-Up [address] [address] Kathy Longo, LAURIE URINALYSIS WITH REFLEX CULTURE 02/16/[facility] [place] [place] [address] Jacquelyn Mejia MD Clinical Consult Before Scheduling 02/08/2025 External Device Data STL ABSTRACTION Provider, Abstract 01/12/2025 [facility] [place] [address] Jacquelyn Mejia MD Generalized anxiety disorder with panic attacks from Last 3 Months Immunizations Immunization Administration Dates Next Due (PFIZER)(12 YR UP) COVID-19 VACCINE - EMERGENCY USE AUTHORIZATION, MRNA, [id number]) 30 MCG/0.3 ML IM SUSP 02/03/2022,07/04/2021,11/09/2020,10/19 (PREVNAR 20)(6 WKS UP) PNEUM OCOCCAL CONJUGATE VACCINE 20-VALENT (PCV20), POLYSACCHARIDE EIT911 CONJUGATE, ADJUVANT 0.5 ML (PF) IM 02/18/2023 [...] Description 04/14/2025 12:00 PM CDT Office Visit [facility] Endocrinology [address] [place] [address] Dada Pardo MD [address] [place] [address] 07/25/2025 2:15 PM BUSINESS SERVICES VICE PRESIDENT Office Visit [facility] Endocrinology [address] [place] [address] Dada Pardo MD [address] [place] [address] Health Maintenance Due Date Last Done [...] PM CDT) COLOR UA DARK YELLOW YELLOW [facility] CLARITY UA CLEAR CLEAR [facility] SPECIFIC GRAVITY UA 1.029 1.001 - 1.035 [facility] PH UA 5.5 5.0 - 8.0 [facility] GLUCOSE UA TRACE(A) NEGATIVE [facility] BILIRUBIN UA NEGATIVE NEGATIVE [facility] KETONES UA TRACE(A) NEGATIVE [facility] BLOOD UA NEGATIVE NEGATIVE [facility] PROTEIN UA NEGATIVE NEGATIVE [facility] NITRITE UA NEGATIVE NEGATIVE [facility] LEUKOCYTE ESTERASE UA NEGATIVE NEGATIVE [facility] WBC UA 0-5 < OR = 5 /HPF [facility] RBC UA 0-2 < OR = 2 /HPF [facility] EPITHELIAL CELLS, URINE NONE SEEN < OR = 5 /HPF [facility] BACTERIA UA NONE SEEN NONE SEEN /HPF [facility] OXALATE CRYSTAL MANY(A) NONE OR FEW /HPF [facility] HYALINE CAST NONE SEEN NONE SEEN /LPF [facility] URINE NOTE [facility] Comment: This urine was analyzed for the presence of WBC, RBC, bacteria, casts, and other formed elements. Only those elements seen were reported. URINE CULTURE [facility] Comment: NO CULTURE INDICATED Test Performed at: [place] [address] [address] [place] [address] [facility]um[facility]encia Neal Urine URINE SPECIMEN OBTAINED BY CLEAN CATCH PROCEDURE / Unknown 02/16/2025 3:07 PM CDT 02/16/2025 3:09 PM CDT Kathy Longo [facility] URINE ORDERABLES Final Res ult [facility] [phone] [place] [address] [address] [place] [address] * (ABNORMAL) HEMOGLOBIN A1C (12/30/2024 1:02 PM CDT) HEMOGLOBIN A1C 7.5(H) <5.7 % of total Hgb [facility] Comment: For someone without known [...] children. ESTIMATED AVERAGE GLUCOSE (MG/DL) 169 mg/dL [facility] AIS dayron Quiles ESTIMATED AVERAGE GLUCOSE (MMOL/L) 9.3 mmol/L [facility] Comment: Test Performed at: [place] [address] [address] [place] [address] Timoteo Neal Blood 12/30/2024 1:02 PM CDT 12/30/2024 1:03 PM CDT Dada Pardo MD CHEMISTRY ORDERABLES Final Result [facility] [phone] [facility] [address] [place] [address] * HM DIABETES EYE EXAM (01/31/2024 9:25 AM CDT) Abstract Provider HEALTH MAINTENANCE Edited Resu lt - Final [facility] * COLON CANCER SCREEN, STOOL DNA (12/29/2023 6:15 PM CDT) COLOGUARD RESULT Negative Negative [facility] Comment: NEGATIVE TEST RESULT. A negative [...] (Rafael Sheldon al, N Engl J Med 2014;370(14):9739-2048) The normal value (reference range) for this assay is negative. COLOGUARD RE-SCREENING RECOMMENDATION: Periodic colorectal cancer screening is an important part of preventive healthcare for asymptomatic individuals at average risk for colorectal cancer. Following a negative Cologuard result, the [place] Cancer Society and U.S. Multi-Society Task Force screening guidelines recommend a Cologuard re-screening interval of 3 years. References: [place] [employer] Guideline for Colorectal Cancer Screening: https://www.cancer.org/cancer/jzlpg-tgxjjg-jsofmw/kmymhfqnv-rpremfzqk-csoetlu/ac s-rec ommendations.html.; Ubaldo DK, Rosalio CR, Rashawn KIMBROUGH, Colorectal Cancer Screening: Recommendations for Physicians and Patients from the U.S. Multi-Society Task Force on Colorectal Cancer Screening , Am J Gastroenterology 2017; 112:2532-7861. TEST DESCRIPTION: Composite algorithmic analysis of stool [...] Rasmussen et al, N Engl J Med 2014;370(14):4275-2540.) Cologuard may produce a false negative or false positive result (no colorectal cancer or precancerous polyp present at colonoscopy follow up). A negative Cologuard test result does not guarantee the absence of CRC or advanced adenoma (pre-cancer). The current Cologuard screening interval is every 3 years. ([place] Cancer Society and U.S. Multi-Society Task Force). Cologuard performance data in a 10,000 patient pivotal study using colonoscopy as the reference method can be accessed at the following location: www.SimpleDeal.com/results. Additional description of the Cologuard test process, warnings and precautions can be found at www.Myagird.com. Stool STOOL SPECIMEN / Unknown 12/29/2023 6:15 PM CDT 12/31/2023 3:09 PM CDT Lynda Hinds MD BODY FLUIDS AND STOOLS Fi nal Result [facility] CLIA # [id number] [address], [address] [place] [address] * MICROALBUMIN/CREATININE RATIO, RANDOM UR (12/09/2023 9:43 [...] CARD FASTING:YES FASTING: YES Test Performed at: [place] [address] Timoteo Mendes MD 12/09/2023 9:43 AM CDT 12/09/2023 9:47 AM CDT Dada Pardo MD URINE ORDERABLES Kaylin l Result Performing Organization Address City/[facility]/ZIP Co de Phone Number [facility] [phone] [place] [address] [place] [address] * LIPID PANEL (12/09/2023 9:43 AM CDT) CHOLESTEROL 151 <200 mg/dL [facility] HDL 58 > OR = 50 [...] LDL-C. Paxton BURROUGHS et al. ANNA. 2013;310(19): 1182-4109 (http://education.Neuro Kinetics/faq/JEX678) CHOL/HDL RATIO 2.6 <5.0 (calc) [facility] TOTAL NON-HDL CHOL(LDL+VLDL) 93 <130 mg/dL (calc) [facility] Comment: For patients with diabetes plus 1 major ASCVD risk factor, treating to a non-HDL-C goal of <100 mg/dL (LDL-C of <70 mg/dL) is considered a therapeutic option. [address] [place] [address] Blood 12/09/2023 9:43 AM CDT 12/09/2023 9:47 AM CDT Dada Pardo MD CHEMISTRY ORDERABLES Final Result [facility] [phone] [facility] [address] [place] [address] * MAMMO SCRN BILAT 3D CHRISTIE W OR WO CAD (12/03/2021 2:03 PM CDT) Anatomical Region Laterality Modality Breast Bilateral Mammography 12/03/2021 2:03 PM CDT Impressions 12/07/2021 3:04 PM CDT IMPRESSION: No mammographic evidence of malignancy. OVERALL FINAL ASSESSMENT: BI-RADS Category 2: Benign finding(s). RECOMMENDATION: Bilateral screening mammogram in one year. DICTATION LOCATION: [facility] Narrative 12/07/2021 3:04 PM CDT BILATERAL [...] screening mammogram in one year. DICTATION LOCATION: [facility] Lynda Hinds MD MAMMO ORDERABLES Final [...] lumbar spine, forearm and hip(s) using a MOBi-LEARN DEXA scanner for bone mineral density determination [...] Almodovar DO DICTATION LOCATION: Location 1 - [facility] Procedure Note Deandre Almodovar DO - 12/03/2021 XR DEXA BONE DENSITY AXIAL 1 OR MORE SITES DATE: 12/03/2021 12:25 PM HISTORY: 71 years old Female with post menopausal symptoms. PROCEDURE: Planar images of the lumbar spine, forearm and hip(s) using a MOBi-LEARN DEXA scanner for bone mineral density determination [...] Almodovar, DO DICTATION LOCATION: Location 1 - [facility] Dada Pardo MD DIAGNOSTIC IMAGING OR DERABLES Final Result * ENDOSCOPY, COLON, DIAGNOSTIC (02/26/2007 12:00 AM CDT) Sgf Scanning GI PROCEDURE ORDERABLES Edited R esult - Final from Last 3 Months or Most Recently Relevant to Health Maintenance Insurance MEDICARE PART A AND B [employer] Advance Directives For more information, please contact: [phone] Documents on File Type Date Recorded 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
--- OUTSIDE RECORDS SUMMARY | 2025-04-06 20:55 | XMS_ITS ---
Author Name Auto Generated, Auto Generated Organization [facility] ice Address [address] [place] [address] Phone [phone] Care Team Providers Care Dry Cell And Battery Assembler Name Role Phone Deandre Caraballo [facility] Functional Status Mental Status Allergies and Intolerances Encounters Problems Reason for Referral Past Medical History
--- OUTSIDE RECORDS SUMMARY | 2025-04-06 20:55 | XMS_ITS | Encounter Summary ---
Author Organization [facility] Address [address] [place] [address] Care Team Providers Care Extractor Operator Solvent Process Name Role Phone Jacquelyn Mejia MD Primary Care Provider Encounter Details Date Type Department Care Team (Late st Contact Info) Description 03/21/2022 Refill [facility] Primary Care [address] [place] [address] Lynda Hinds MD NO ADDRESS [...] [facility] [address] [place] [address] Dada Pardo MD [address] [place] [address] 07/25/2025 2:15 PM BANKRUPTCY JUDGE Office Visit [facility] Endocrinology [address] [place] [address] Dada Pardo MD [address] [place] [address] documented as of this encounter Visit Diagnoses Not on filedocumented in this encounter Additional Health Concerns Assessment Noted Time PHQ-9 Depression Total Score: 3 02/05/20 22 1:00 PM CDT documented as of this encounter Care Teams Extractor Operator Solvent Process Relationship Specialty [place] [address] [place] [address] PCP - General Family Practice 12/01/24 documented as of this encounter
--- OUTSIDE RECORDS SUMMARY | 2025-04-06 20:55 | XMS_ITS | Clinical Summary ---
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 Active estradioL (Estrace) 0.01 % [...] Type Department Care Team Description 04/06/2025 Telephone [facility] Cardiology [address] [place] [address] [place] [phone] [place] Horn MD Chest Pain; Shortness of Breath 03/04/2025 Telephone [facility] Cardiology [address] [place] [address] [address] [place] [address] [place] Horn MD Med Refill 03/03/2025 Telephone [facility] Cardiology at [address] [place] [address] [place] Horn MD Cardiac Rehab 03/02/2025 11:45 AM CDT Office Visit [facility] Cardiology [address] [place] [address] [address] [place] [address] [place] Horn MD Coronary artery disease involving [place] coronary artery of [place] heart with other form of angina pectoris (Primary Dx); S/P CABG x 1; Type 1 diabetes mellitus with other specified complication (HCC); History of DVT (deep vein thrombosis); Chronic anticoagulation; History of tobacco abuse 02/18/2025 Telephone [facility] Cardiology [address] [place] [address] [address] [place] [address] [place] Horn MD Med Refill 01/26/2025 Orders Only [facility] Surgery [address] [place] [address] [address] [place] [address] June Reinoso NP 01/21/2025 10:00 AM CDT Office Visit [facility] Surgery [address] [place] [address] [address] [place] [address] Javier Davis MD Coronary artery [...] pain disorder Coronary artery disease invo lving [place] coronary artery of [place] heart with other form of angina pectoris [...] 0.6 oz pur e alcohol) [facility] [employer]ets Developmentities Answer Date Recorded In the past 12 [...] week 12/21/2024 How often do you attend mormonism or christianity serv ices? Never 12/21/2024 Do you belong to any clubs o r organizations such as mormonism groups, unions, fraternal or athletic groups, or [...] any time in the past 12 [facility], were you homeless or living in a retirement (including now)? No 12/21/2024 Personal Safety Answer Date Recorded Have you ever been in or are you currently in a harmful physical or emotional relationship or is someone making you feel afraid or unsafe? Denies 12/17/2024 Comments No Sex and Gender Information Value Date Recorded Sex Assigned at Not on file Legal Sex Female 2:53 PM CONVENTION SERVICES DIRECTOR Gender Identity Not on file Sexual Orientation [...] Completed 02/18/2023 Medical Devices Implanted Type Area Biophysics Scientist Device Identifier Shelf Expiration Date Model / Serial / Lot NAVX Inc Ascenda 4fr .5mm 114cm 86cm 2 Piece Connector Pin Flexible Closed 8780 - [id number] Implanted:Qty: 1 on 07/01/2022 by Deandre Caraballo MD at [facility] N/A: Back Medtronic Inc 06/17/2024 8780 / / [id number] Medtronic Inc Synchromed Ii .78in Old Fig Garden Filter Mesh Pouch Programmable 8637-20 - [id number] - [id number] Implanted:Qty: 1 on 07/01/2022 by Deandre Caraballo MD at [facility] N/A: Back Medtronic Inc 12/18/2023 8637-20 / [id number] / Medtronic Inc Tyrx 3.35x3in Large Envelope Absorbable Polyarylate Minocycline [id number] - [id number] Implanted:Qty: 1 on 07/01/2022 by Deandre Caraballo MD at [facility] N/A: Back Medtronic Inc 03/30/2023 [id number] / / [id number] Axonics Modulation Technologies Bulkamid Urethreal Bulking System 27565 - [id number] Implanted:Qty: 1 on 07/29/2024 by Paco Orr MD at [facility] N/A: Urethra [employer]on[employer] [id number] 10/22/2026 [id number] / / [id number] Lsi Solutions Inc Suture Gary Cor Knot Pre Loaded Fastener Device Micro Titanium 0 39301 - [id number] Implanted:Qty: 1 on 12/17/2024 at [facility] N/A: Heart Lsi Solutions Inc 14868 / / Medtronic Inc [place] 1.5mm 14mm Radiopaque Bulb Tapered Tip Soft 38023 - [id number] Implanted:Qty: 1 on 12/17/2024 by Javier Davis MD at [facility] N/A: Heart Medtronic Inc 14280 / / Explanted Type Area Biophysics Scientist Device Identifier Shelf Expiration Date Model / Serial / Lot Lsi Solutions Inc Suture Gary Cor Knot Pre Loaded Fastener Device Micro Titanium 0 59896 - [id number] Explanted:Qty: 1 on 12/17/2024 at [facility] N/A: Heart [employer] Inc [id number] / / Medtronic Inc [place] 1.5mm 14mm Radiopaque Bulb Tapered Tip Soft 58507 - [id number] Explanted:Qty: 1 on 12/17/2024 at [facility] N/A: Heart Medtronic Inc 60485 / / Procedures Procedure Name Priority Date/Time Associated Diagnosis Comments ELECTROCARDIOGRAM REPORT Routine 03/02/2025 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 Testing performed by: [facility], [address] [place] [address], [place]., [address] Blood 12/27/2024 3:30 PM CDT 12/27/2024 5:59 PM CDT us Javier Davis MD LAB BLOOD ORDERABLES Final Res ult [facility] [address] [facility] [place] [address] * Thyroid Function New Era (12/18/2024 2:30 AM CDT) TSH 0.89 0.30 - 4.20 mcIUnit/mL Blood 12/18/2024 2:30 AM CDT 12/18/2024 8:28 AM CDT Vielka Crane NP LAB BLOOD ORDERABL ES Final Result Performing Organization Address [facility] Co de Phone Number [facility] [address] [facility] [place] [address] * (ABNORMAL) Hemoglobin A1c (08/12/2024 5:36 AM CONVENTION SERVICES DIRECTOR) Hgb A1C 8.0(H) 4.0 - 5.6 % Estimated Average Glucose 183 mg/dL [facility] Comment: The ADA recommends reporting an estimated Average Glucose (eAG) with all Hemoglobin A1c results using the equation derived from a study of 507 normal and diabetic adults. Minority populations were underrepresented and children were not included. (Diabetes Care 2020; 43(S1): S66-S76). The eAG is not equivalent to a fasting glucose. Blood 08/12/2024 5:36 AM CONVENTION SERVICES DIRECTOR 08/12/2024 6:02 AM CONVENTION SERVICES DIRECTOR Kyra Emmanuel MD LAB BLOOD ORDERABLES Kaylin l Result [facility] [address] [facility] [place] [address] * Lipid panel (08/11/2024 4:07 PM CONVENTION SERVICES DIRECTOR) Cholesterol 146 30 - 199 mg/dL Comment: [...] revised on 2018. Triglycerides 97 <=149 mg/dL [facility] Comment: Interpretive Data Ages < or [...] revised on 2018. HDL 68 >=40 mg/dL [facility] Comment: Interpretive Data Ages < or [...] 2018. LDL, calculated 60 <=129 mg/dL [facility] Comment: Interpretive Data Ages < or [...] on 2024. Non-HDL Cholesterol 78 mg/dL [facility] Comment: Interpretive Data Ages < or [...] last revised on 2018. Chol/HDL ratio 2 [facility] Blood 08/11/2024 4:07 PM CONVENTION SERVICES DIRECTOR 08/11/2024 4:33 PM CONVENTION SERVICES DIRECTOR us Kyra Emmanuel MD LAB BLOOD ORDERABLES Kaylin mack Result [facility] [address] [facility] Department [place] [address] from Last 3 Months or Most Recently Relevant to Health Maintenance Insurance MEDICARE [facility] Address: [address] [address] [place] [address] FOR LIFE MEDICARE FOR LIFE MEDICARE [facility] Advance Directives For more information, please contact: [phone] * Full Code (Latest Code Status on File) Date Activated Date Inactivated Comments 12/17/2024 2:29 PM 12/23/2024 3:37 PM Care Teams Balance Staff Staker Relationship Specialty [place] [address] [address] PCP - General Family Medicine 06/23/24 Paco Orr MD [address] DIV OBGYN PELVIC MED/RECONSTRUCT SURG, [address] [place] [address] Referring Physician Urogynecology 08/30/24 Chris Goode MD [address] [place] [address] DIV IM BONE MARROW TRANSPLANT, 5TH, [address] [place] [address] Consulting Physician Medical Oncology 08/30/24 Celestine Garcia SAFETY RISK LEAD [address] [place] [address] Nurse Practitioner Pain Management 08/31/24 [place] [address] [address] [facility] [address] [place] [address] Consulting Physician Pain Management 11/24/24 [place] [address] [facility] [address] [place] [address] Surgeon Cardiothoracic Surgery 12/23/24 [place] Horn MD [address] [facility] [address], [address] [place] [address] Consulting Physician Cardiology 12/23/24 Miscellaneous, Not In File 12/23/24
--- OUTSIDE RECORDS SUMMARY | 2025-04-06 20:55 | XMS_ITS | Encounter Summary ---
Author Organization [facility] Healthcare Address [address] [place] [address] Care Team Providers Care Acidity Tester Name Role Phone Lynda Hinds MD Primary Care Provider [phone] Jacquelyn Mejia MD Primary Care Provider Paco Orr MD Unavailable [phone] Chris Goode MD Unavailable Celestine Garcia NP Unavailable [phone] Deandre Caraballo MD Unavailable [phone] Javier Davis MD Unavailable [phone] Spencer Horn MD Unavailable Miscellaneous, Not In File Unavailable Unava ilable Encounter Details Date Type Department Care Team (Late st Contact Info) Description 01/23/2021 Orders Only [facility] [address] [place] [address] Armida Lea, MELLISSA Social History [...] on file Legal Sex Female 2:53 PM GIVER Gender Identity Not on file Sexual Orientation Not on file documented as of this encounter Plan of Treatment Not on file documented as of this encounter Visit Diagnoses Not on filedocumented in this encounter Additional Health Concerns Infection Onset Date Last Indicated Resolved Time COVID: Suspected 06/21/2022 06/21/2022 06/21/2022 10:25 PM CDT documented as of this encounter Care Teams Acidity Tester Relationship Specialty [place] [address] [place] [phone] PCP - General Family Medicine 01/30/22 06/22/24 [place] [address] [place] [address] PCP - General Family Medicine 06/23/24 Paco Orr MD [address] DIV OBGYN PELVIC MED/RECONSTRUCT SURG, [facility] [address] [place] [address] Referring Physician Urogynecology 08/30/24 Chris Goode MD [address] [facility] [place] 8 DIV IM BONE MARROW TRANSPLANT, , [address] [place] [address] Consulting Physician Medical Oncology 08/30/24 Celestine Garcia OWNER/PHOTOGRAPHER [address] [facility] [address] [place] [address] Nurse Practitioner Pain Management 08/31/24 [place] [address] [address] [facility] [address] [address] Consulting Physician Pain Management 11/24/24 [place] [address] [address] [facility] [address] [address] Surgeon Cardiothoracic Surgery 12/23/24 Spencer Horn MD [address] [facility] C [facility] [address] [facility] C, [address] [place] [address] Consulting Physician Cardiology 12/23/24 Miscellaneous, Not In File 12/23/24 documented as of this encounter
--- OUTSIDE RECORDS SUMMARY | 2025-04-06 20:55 | XMS_ITS | Encounter Summary ---
Author Organization [facility] Healthcare Address [address] [place] [address] Care Team Providers Care Electronic Field Service Engineer Name Role Phone Jacquelyn Mejia MD Primary Care Provider Paco Orr MD Unavailable Chris Goode MD Unavailable Celestine Garcia NP Unavailable [phone] Deandre Caraballo MD Unavailable Javier Davis MD Unavailable [phone] Spencer Horn MD Unavailable Miscellaneous, Not In File Unavailable Unava ilable Reason for Visit * Reason Onset Date Comments Chest Pain 04/06/2025 Shortness of Breath 04/06/2025 Encounter Details Date Type Department Care Team (Late st Contact Info) Description 04/06/2025 Telephone [facility] Medical Group Cardiology [address] [place] [address] Spencer Horn MD [address], [address] [place] [address] Chest Pain; Shortness of Breath [...] week 12/21/2024 How often do you attend baptist or cheondoism serv ices? Never 12/21/2024 Do you belong to any clubs o r organizations such as baptist groups, unions, fraternal or athletic groups, or [...] any time in the past 12 m [facility], were you homeless or living in a care home (including now)? No 12/21/2024 Personal Safety Answer Date Recorded Have you ever been in or are you currently in a harmful physical or emotional relationship or is someone making you feel afraid or unsafe? 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 Please advise. Thank you. Contact [phone] documented in this encounter Plan of Treatment Not on file documented as of this encounter Visit Diagnoses Not on filedocumented in this encounter Care Teams Electronic Field Service Engineer Relationship Specialty [place] [address] [place] [address] PCP - General Family Medicine 06/23/24 Paco Orr MD [address] DIV OBGYN PELVIC MED/RECONSTRUCT SURG, [address] [place] [address] Referring Physician Urogynecology 08/30/24 Chris Goode MD [address] DIV IM BONE MARROW TRANSPLANT, 5TH, [address] [place] [address] Consulting Physician Medical Oncology 08/30/24 Celestine Garcia WORD PROCESSOR OPERATOR [address] [address] [place] [address] Nurse Practitioner Pain Management 08/31/24 [place] [address] [address] [place] [address] Consulting Physician Pain Management 11/24/24 [place] [address] [address] [facility] [place] [address] Surgeon Cardiothoracic Surgery 12/23/24 Spencer Horn MD [address] [facility] [address] [facility] C, [address] [place] [address] Consulting Physician Cardiology 12/23/24 Miscellaneous, Not In File 12/23/24 documented as of this encounter
--- OUTSIDE RECORDS SUMMARY | 2025-04-06 20:55 | XMS_ITS | Encounter Summary ---
Author Organization [facility] Healthcare Address [address] [place] [address] Care Team Providers Care Imposer Name Role Phone Jacquelyn Mejia MD Primary Care Provider Paco Orr MD Unavailable Chris Goode MD Unavailable Celestine Garcia NP Unavailable Deandre Caraballo MD Unavailable Javier Davis MD Unavailable [phone] Spencer Horn MD Unavailable Miscellaneous, Not In File Unavailable Unava ilable Encounter Details Date Type Department Care Team (Late st Contact Info) Description 12/28/2024 [facility] Post Discharge Follow up phone call [facility] [address] [place] [address] Kiya Carlisle Social History Tobacco Use Types Packs/Day Years Used Date Smoking Tobacco: Former Cigarettes 1 15 0 09/22/1984 - 09/22/1999 Smokeless Tobacco: Never Alcohol Use Standard Drinks/Week Comments Never 0 (1 standard drink = 0.6 oz pur e alcohol) [facility] Utilities Answer Date Recorded In the [...] week 12/21/2024 How often do you attend mu-ism or confucianist serv ices? Never 12/21/2024 Do you belong to any clubs o r organizations such as mu-ism groups, unions, fraternal or athletic groups, or [...] any time in the past 12 m [facility], were you homeless or living in a mcc (including now)? No 12/21/2024 Personal Safety Answer Date Recorded Have you ever been in or are you currently in a harmful physical or emotional relationship or is someone making you feel afraid or unsafe? 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 Gender Identity Not on file Sexual Orientation Not on file documented as of this encounter Plan of Treatment Not on file documented as of this encounter Visit Diagnoses Not on filedocumented in this encounter Care Teams Imposer Relationship Specialty [place] [address] [place] [address] PCP - General Family Medicine 06/23/24 Paco Orr MD [address] DIV OBGYN PELVIC MED/RECONSTRUCT SURG, [address] [place] [address] Referring Physician Urogynecology 08/30/24 Chris Goode MD [address] DIV IM BONE MARROW TRANSPLANT, , [address] [place] [address] Consulting Physician Medical Oncology 08/30/24 Celestine Garcia DRY CHAIN WORKER [address] [address] [place] [address] Nurse Practitioner Pain Management 08/31/24 [place] [address] [address] [place] [place] [address] Consulting Physician Pain Management 11/24/24 [place] [address] [address] [facility] [address] [place] [place] [address] Surgeon Cardiothoracic Surgery 12/23/24 Spencer Horn MD [address] [facility] C [address] [facility], [address] [place] [address] Consulting Physician Cardiology 12/23/24 Miscellaneous, Not In File 12/23/24 documented as of this encounter
--- OUTSIDE RECORDS SUMMARY | 2025-04-06 20:55 | XMS_ITS ---
Author Name Auto Generated, Auto Generated Organization [facility] ices Address [address] [place] [address] Phone [phone] Care Team Providers Care Cigarette Tipper Name Role Phone Deandre Caraballo [facility] [phone] Functional Status No Results Mental Status No [...]
--- OUTSIDE RECORDS SUMMARY | 2025-04-06 20:55 | XMS_ITS | Referral Summary ---
Author Organization [facility] Address [address] [place] [address] Care Team Providers Care Physician Compensation Analyst Name Role Phone Jacquelyn Mejia MD Primary Care Provider Paco Orr MD Unavailable [phone] Chris Goode MD Unavailable Celestine Garcia NP Unavailable Deandre Caraballo MD Unavailable Javier Davis MD Unavailable [phone] Spencer Horn MD Unavailable Miscellaneous, Not In File Unavailable Unava ilable Encounters Date Type Department Care Team Description 04/06/2025 Telephone [facility] Medical Group Cardiology [address] [facility] [address] [place] [address] Spencer Horn MD Chest Pain; Shortness of Breath 03/04/2025 Telephone [facility] Medical Group Cardiology [address] [facility] [address] [place] [address] Spencer Horn MD Med Refill 03/03/2025 Telephone [facility] Medical Group Cardiology at [address] [place] [address] Spencer Horn MD Cardiac Rehab 03/02/2025 11:45 AM CDT Office Visit [facility] Medical Group Cardiology [address] [facility] [address] [place] [address] Spencer Horn MD 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 (Primary Dx); S/P CABG x 1; Type 1 diabetes mellitus with other specified complication (HCC); History of DVT (deep vein thrombosis); Chronic anticoagulation; History of tobacco abuse 02/18/2025 Telephone [facility] Cardiology [address] [place] [address] Spencer Horn MD Med Refill 01/26/2025 Orders Only [facility] Surgery [address] [place] [address] [place] [address] June Reinoso NP 01/21/2025 10:00 AM CDT Office Visit [facility] Surgery [address] [place] [address] [address] [place] [address] Javier Davis MD Coronary artery [...] 1 tablet (137 mcg total) by mouth speed belt sander tender before breakfast Active estradioL (Estrace) 0.01 % [...] drink = 0.6 oz pur e alcohol) Sparrow Answer Date Recorded In the past 12 months has Care[employer], gas, oil, or water [employer] threatened to shut off services in your home? No 12/21/2024 Social Connection and Isolation Panel [NHANES] A nswer Date Recorded In a typical week, how many times do you talk on the phone with family, friends, or neighbors? Once a week 12/21/2024 How often do you get together with friends or re latives? Once a week 12/21/2024 How often do you attend nondenominational or adventism serv ices? Never 12/21/2024 Do you belong to any clubs o r organizations such as nondenominational groups, unions, fraternal or athletic groups, or [...] any time in the past 12 m [facility], were you homeless or living in a intermediate (including now)? No 12/21/2024 Personal Safety Answer Date Recorded Have you ever been in or are you currently in a harmful physical or emotional relationship or is someone making you feel afraid or unsafe? 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 Gender Identity Not on file Sexual Orientation [...] on file Medical Devices Implanted Type Area Temporary Receptionist Device Identifier Shelf Expiration Date Model / Serial / Lot Medtronic Inc Ascenda 4fr .5mm 114cm 86cm 2 Piece Connector Pin Flexible Closed 8780 - [id number] Implanted:Qty: 1 on 07/01/2022 by Deandre Caraballo MD at [facility] N/A: Back Medtronic Inc 06/17/2024 8780 / / [id number] Medtronic Inc Synchromed Ii .78in [place] Filter Mesh Pouch Programmable 8637-20 - [id number] - [id number] Implanted:Qty: 1 on 07/01/2022 by Deandre Caraballo MD at [facility] N/A: Back Med[employer]onic Inc 12/18/2023 8637-20 / [id number] / Medtronic Inc Tyrx 3.35x3in Large Envelope Absorbable Polyarylate Minocycline [id number] - [id number] Implanted:Qty: 1 on 07/01/2022 by Deandre Caraballo MD at [facility] N/A: Back Med[employer]onic Inc 03/30/2023 [id number] / / [id number] [employer] Bulkamid Urethreal Bulking System 42669 - [id number] Implanted:Qty: 1 on 07/29/2024 by Paco Orr MD at [facility] N/A: Urethra Axonics [employer] [id number] 10/22/2026 [id number] / / [id number] [employer] Inc Suture [place] Cor Knot Pre Loaded Fastener Device Micro Titanium 0 63089 - [id number] Implanted:Qty: 1 on 12/17/2024 at [facility] N/A: Heart [employer] Inc [id number] / / Medtronic Inc [place] 1.5mm 14mm Radiopaque Bulb Tapered Tip Soft 42358 - [id number] Implanted:Qty: 1 on 12/17/2024 by Javier Davis MD at [facility] N/A: Heart Medtronic Inc 98718 / / Explanted Type Area Temporary Receptionist Device Identifier Shelf Expiration Date Model / Serial / Lot [employer] Inc Suture [place] Cor Knot Pre Loaded Fastener Device Micro Titanium 0 27851 - [id number] Explanted:Qty: 1 on 12/17/2024 at [facility] N/A: Heart [employer] Inc [id number] / / Medtronic Inc [place] 1.5mm 14mm Radiopaque Bulb Tapered Tip Soft 72173 - [id number] Explanted:Qty: 1 on 12/17/2024 at [facility] N/A: Heart Medtronic Inc 72410 / / Procedures Procedure Name Priority Date/Time Associated Diagnosis Comments ELECTROCARDIOGRAM REPORT Routine 03/02/2025 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 Testing performed by: [facility], [address] [place] [address]., [address] Blood 12/27/2024 3:30 PM CDT 12/27/2024 5:59 PM CDT Javier Davis MD LAB BLOOD ORDERABLES Final Res ult YESENIA [address] [facility] Department of Laboratories [place], [place] [id number] * Thyroid Function Russell (12/18/2024 2:30 AM CDT) TSH 0.89 0.30 - 4.20 mcIUnit/mL Blood 12/18/2024 2:30 AM CDT 12/18/2024 8:28 AM CDT Vielka Crane NP LAB BLOOD ORDERABL ES Final Result YESENIA [address] Department [place] [address] * (ABNORMAL) Hemoglobin A1c (08/12/2024 5:36 AM FACILITIES MECHANICAL DESIGN ENGINEER) Hgb A1C 8.0(H) 4.0 - 5.6 % Estimated Average Glucose 183 mg/dL YESENIA [facility] Comment: The ADA recommends reporting an estimated Average Glucose (eAG) with all Hemoglobin A1c results using the equation derived from a study of 507 normal and diabetic adults. Minority populations were underrepresented and children were not included. (Diabetes Care 2020; 43(S1): S66-S76). The eAG is not equivalent to a fasting glucose. Blood 08/12/2024 5:36 AM FACILITIES MECHANICAL DESIGN ENGINEER 08/12/2024 6:02 AM FACILITIES MECHANICAL DESIGN ENGINEER us Kyra Emmanuel MD LAB BLOOD ORDERABLES Kaylin frederick Result [facility] Department [place] [address] * Lipid panel (08/11/2024 4:07 PM FACILITIES MECHANICAL DESIGN ENGINEER) Cholesterol 146 30 - 199 mg/dL Comment: [...] on 2018. LDL, calculated 60 <=129 mg/dL [facility] Comment: Interpretive Data Ages < [...] revised on 2024. Non-HDL Cholesterol 78 mg/dL [facility] Comment: Interpretive Data Ages < or [...] last revised on 2018. Chol/HDL ratio 2 [facility] Blood 08/11/2024 4:07 PM FACILITIES MECHANICAL DESIGN ENGINEER 08/11/2024 4:33 PM FACILITIES MECHANICAL DESIGN ENGINEER us Kyra Emmanuel MD LAB BLOOD ORDERABLES Kaylin mack Result [facility] Department [place] [address] from Last 3 Months or Most Recently Relevant to Health Maintenance Insurance MEDICARE Viewpost MEDICARE FOR LIFE MEDICARE FOR LIFE Advance Directives For more information, please contact: [phone] * Full Code (Latest Code Status on File) Date Activated Date Inactivated Comments 12/17/2024 2:29 PM 12/23/2024 3:37 PM Care Teams Physician Compensation Analyst Relationship Specialty [place] [address] [place] [address] PCP - General Family Medicine 06/23/24 Paco Orr MD [address] DIV OBGYN PELVIC MED/RECONSTRUCT SURG, [address] [place] [address] Referring Physician Urogynecology 08/30/24 Chris Goode MD [address] DIV IM BONE MARROW TRANSPLANT, 5TH, [address] [place] [address] Consulting Physician Medical Oncology 08/30/24 Celestine Garcia TATTOO DESIGNER [address] [facility] [address] [place] [address] Nurse Practitioner Pain Management 08/31/24 [place] [address] [address] [facility] [address] [place] [address] Consulting Physician Pain Management 11/24/24 [place] [address] [address] [facility] [address] [place] [address] Surgeon Cardiothoracic Surgery 12/23/24 Spencer Horn MD [address], [address] [place] [address] Consulting Physician Cardiology 12/23/24 Miscellaneous, Not In File 12/23/24
[2025-04-06 21:25] VITALS: BP 176/84; PULSE 70; RESP 15; O2SAT 99
[2025-04-06 23:27] LABS: Troponin I < 0.012 ng/mL (0.000-0.034)
[2025-04-07] MEDS: CEPHALEXIN 500 MG CAPSULE PO (01:14)
[2025-04-07 01:23] VITALS: BP 169/80; PULSE 78; RESP 20; O2SAT 98
[2025-04-07 01:24] VITALS: BP 169/80; PULSE 78; RESP 20; O2SAT 98
== END 2025-04-07 01:27 | disposition home or self-care (01) ==
PROVIDERS: Emergency Provider Student in an Organized Health Care Education/Training Program
DX: N39.0 Urinary tract infection, site not specified (principal); R53.1 Weakness; Z86.718 Personal history of other venous thrombosis and embolism; I25.10 Atherosclerotic heart disease of native coronary artery without angina pectoris; I10 Essential (primary) hypertension; E11.9 Type 2 diabetes mellitus without complications; Z79.4 Long term (current) use of insulin; Z79.01 Long term (current) use of anticoagulants
CPT/HCPCS: 36415; 71046; 80053; 81001; 82948; 83690; 84484; 85025; 85610; 85730; 93005; 99284; A9270

== ENCOUNTER 2025-05-05 13:45 | Outpatient (RCR) | payer MEDICARE, OTHER, SELFPAY ==
[2025-04-12 09:06] VITALS: PULSE 69
== END 2025-07-04 10:21 | disposition home or self-care (01) ==
LOC: ANHCPREHAB 13:45
PROVIDERS: Visit Provider Internal Medicine Cardiovascular Disease
DX: Z95.1 Presence of aortocoronary bypass graft (principal)
CPT/HCPCS: 93798